=== PATIENT | female | born 1950 | race Caucasian/White ===

== ENCOUNTER 2016-10-16 20:57 | Emergency (ER) | payer MEDICARE, MEDICAID ==
[~2016-10-16] VITALS: Ht 157.5 cm; Wt 80.0 kg
[~2016-10-16 20:57] MED LIST: ANBE10LI MT; CARB100C PO; CLON1 PO; DOCU1CAP39 PO; FURO20 PO; HYDR-3129 PO; LISI20 PO; LORA-474 PO; NICODIS TD; PAXI10TA PO; POTA20IN3 PO; PROP1TAB66 PO; REME15TA PO; SENN-29 PO; ZOCO40TA PO
[2016-10-16 21:05] VITALS: BP 164/69; PULSE 69; RESP 16; TEMP 97.9; O2SAT 98
--- NOTE | 2016-10-16 21:44 | PD ---
HPI Chief Complaint: Pain: Acute or Chronic Time Seen by Provider: 21:00 Travel History International Travel<30 days: No Contact w/Intl Traveler<30days: No Traveled to known affect area: No History of Present Illness HPI The patient is a 66 year old female who presents to the [facility] emergency department with a history of reportedly having an exacerbation of her arthritic pain that became worse today. He reports having bilateral hip pain worse with walking, right shoulder pain, and low back pain. The patient denies any redness or swelling of her joints. She reports that she normally takes Aleve for the pain, however she did take a hydrocodone abruptly 1 hour prior to arrival. She reports that the pain has started to improve since arriving in the emergency department. She denies having any fevers or chills. She denies having any chest pain, chest pressure, or shortness of breath. The patient reports that she has had x-rays of her back in the past as well as her shoulder. She denies ever being told that she will require hip replacements or surgical repair. On review of systems, the patient denies any cough, congestion , neck pain, abdominal pain, vomiting, diarrhea, or neurologic symptoms. She does however report having urinary frequency that is more prominent over the last month. Denies any dysuria or urinary urgency. [facility] Past Medical History Narrative Medical The patient's past medical history is significant for congestive heart failure, hypertension, history of dementia, history of prior stroke with residual left- sided weakness history of TIA. Arthritis: Yes Anxiety: Yes Cardiovascular Problems: Yes Congestive Heart Failure: Yes COPD: Yes Dementia: Yes Genitourinary: No Hypertension: Yes Musculoskeletal: No Neurologic: No Psychiatric: No Reproductive: No Immunizations Current: Yes Tetanus Vaccination: Unknown Influenza Vaccination: No Past Surgical History Narrative Surgical The patient's past surgical history is significant for cardiac catheterization with stent placement in February 2015. Other Surgery: Yes (LUMPECTOMY) Social History Alcohol Use: No Tobacco Use: Yes Substance Use: No Allergies-Medications (Allergen,Severity, Reaction): Coded Allergies: Abilify (Verified Allergy, Severe, Chest Pain, 10/16/16) Latuda (Verified Allergy, Unknown, UNKNOWN, 10/16/16) Reported Meds & Prescriptions Reported Meds & Active Scripts Active Reported Senna (Sennosides) 8.6 Mg Tab 8.6 Mg PO HS Lorazepam 1 Mg Tab 1 Mg PO Q4H PRN Hydrocodone-Acetaminophen 10-325 mg Tab 1 Tab PO TID PRN Anbesol Dental (Benzocaine Dental) 10% Gel 1 Applic DENTAL PRN Mirtazapine 15 Mg Tab 15 Mg PO HS Clonazepam 1 Mg Tab 1 Mg PO TID Potassium Chloride ER (Potassium Chloride) 20 Meq Tab 20 Meq PO DAILY Propranolol (Propranolol HCl) 10 Mg Tab 10 Mg PO DAILY Paroxetine (Paroxetine HCl) 10 Mg Tab 10 Mg PO DAILY Lisinopril 20 Mg Tab 20 Mg PO DAILY Lasix (Furosemide) 40 Mg Tab 40 Mg PO DAILY Colace (Docusate Sodium) 100 Mg Cap 100 Mg PO DAILY Review of Systems Except as stated in HPI: all other systems reviewed are Neg General / Constitutional: No: Fever Eyes: No: Visual changes HENT: No: Headaches Cardiovascular: No: Chest Pain or Discomfort Respiratory: No: Shortness of Breath Gastrointestinal: No: Abdominal Pain Genitourinary: No: Dysuria Musculoskeletal: Positive: Myalgias, Arthralgias, Pain, No: Limited ROM, Weakness, Cramping, Edema Skin: No Rash Neurologic: No: Weakness Psychiatric: No: Depression Endocrine: No: Polydipsia Hematologic/Lymphatic: No: Easy Bruising Physical Exam Narrative General: The patient is well-developed well-nourished female in no acute distress. Head and Neck exam: Head is normocephalic atraumatic. Eyes: EOMI, pupils are equal round and reactive to light. Nose: Midline septum with pink mucous membranes Mouth: Dentition unremarkable. Moist mucus membranes. Posterior oropharynx is not erythematous. No tonsillar hypertrophy. Uvula midline. Airway patent. Neck: No palpable lymphadenopathy. No nuchal rigidity. No thyromegaly. Cardiovascular: Regular rate and rhythm without murmurs, gallops, or rubs. No pulse deficit to the extremities. Lungs: Clear to auscultation bilaterally. No wheezes, rhonchi, or rales. Abdomen: Soft, without tenderness to palpation in all 4 quadrants of the abdomen. No guarding, rebound, or rigidity. Normal bowel sounds are audible. No tenderness on palpation of McBurney's point. Extremities: No clubbing, cyanosis, or edema. 2+ pulses in all 4 extremities. No joint erythema or swelling. The calf tenderness on palpation. The patient has full range of motion of her extremities without deformity, step-off, or crepitus. Back: No spinous process tenderness to palpation. No costovertebral angle tenderness to palpation. Neurologic Exam: Grossly nonfocal. Skin Exam: No rash noted. Intact skin that is warm and dry. Data Data Last Documented VS Vital Signs Date Time Temp Pulse Resp B/P Pulse Ox O2 Delivery O2 Flow Rate FiO2 10/16/16 21:05 97.9 69 16 164/69 98 Orders Complete Blood Count With Diff (10/16/16 21:25) Basic Metabolic Panel (Bmp) (10/16/16 21:25) Creatine Kinase (Cpk) (10/16/16:25) Ckmb (Isoenzyme) Profile (10/16/16:) Troponin I (10/16/16:) Urinalysis - C+S If Indicated (10/16/16:) Chest, Single Ap (10/16/16:25) Pelvis, Ap Only (Routine) (10/16/16:25) Iv Access Insert/Monitor (10/16/16:25) Ecg Monitoring (10/16/16:25) Oximetry (10/16/16:25) Electrocardiogram (10/16/16 22:52) Labs Laboratory Tests Test 10/16/16 22:00 White Blood Count 10.7 TH/MM3 Red Blood Count 3.57 MIL/MM3 Hemoglobin 11.1 GM/DL Hematocrit 32.1 % Mean Corpuscular Volume 89.8 FL Mean Corpuscular Hemoglobin 31.1 PG Mean Corpuscular Hemoglobin 34.6 % Concent Red Cell Distribution Width 12.8 % Platelet Count 246 TH/MM3 Mean Platelet Volume 9.3 FL Neutrophils (%) (Auto) 53.6 % Lymphocytes (%) (Auto) 29.8 % Monocytes (%) (Auto) 10.0 % Eosinophils (%) (Auto) 5.6 % Basophils (%) (Auto) 1.0 % Neutrophils # (Auto) 5.7 TH/MM3 Lymphocytes # (Auto) 3.2 TH/MM3 Monocytes # (Auto) 1.1 TH/MM3 Eosinophils # (Auto) 0.6 TH/MM3 Basophils # (Auto) 0.1 TH/MM3 CBC Comment DIFF FINAL Differential Comment Urine Color YELLOW Urine Turbidity CLEAR Urine pH 5.0 Urine Specific [place] 1.009 Urine Protein NEG mg/dL Urine Glucose (UA) NEG mg/dL Urine Ketones NEG mg/dL Urine Occult Blood NEG Urine Nitrite NEG Urine Bilirubin NEG Urine Urobilinogen LESS THAN 2.0 MG/DL Urine Leukocyte Esterase SMALL Urine RBC 1 /hpf Urine WBC 3 /hpf Urine Squamous Epithelial 1 /hpf Cells Urine Bacteria OCC /hpf Urine Hyaline Casts 1 /lpf Urine Mucus FEW /lpf Microscopic Urinalysis Comment CULT NOT INDICATED Sodium Level 137 MEQ/L Potassium Level 5.1 MEQ/L Chloride Level 102 MEQ/L Carbon Dioxide Level 27.7 MEQ/L Anion Gap 7 MEQ/L Blood Urea Nitrogen 40 MG/DL Creatinine 1.57 MG/DL Estimat Glomerular Filtration 33 ML/MIN Rate Random Glucose 104 MG/DL Calcium Level 8.8 MG/DL Total Creatine Kinase 59 U/L Troponin I LESS THAN 0.02 NG/ML MDM Medical Decision Making Medical Screen Exam Complete: Yes Emergency Medical Condition: Yes Medical Record Reviewed: Yes Interpretation(s) Last Impressions Pelvis X-Ray 10/16/162124 Signed Impressions: Service Date/Time: Sunday, October 16, 2016 21:48 - CONCLUSION: 1. No acute findings. 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 Nate Núñez MD Chest X-Ray 10/16/162124 Signed Impressions: Service Date/Time: Sunday, October 16, 2016 21:51 - CONCLUSION: 1. No active disease. Calcifications in the left breast similar to prior studies. Nate Núñez MD Differential Diagnosis Exacerbation of arthritic pain, versus atypical presentation of acute coronary syndrome which right shoulder pain, versus rotator cuff injury, versus polymyositis Narrative Course During the course of the patients emergency department visit, the patients history, examination, and differential diagnosis were reviewed with the patient. The patient had IV access obtained and blood work sent for analysis. 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 EKG done on arrival shows a sinus bradycardia heart rate of 59, no acute ST segment elevation or depression, T waves inverted in V1. The patients laboratory studies were reviewed and remarkable for a white count of 10.7, hemoglobin 11.1, platelets 246 with 10 monocytes, CMP is remarkable for a BUN of 40, creatinine 1.57, CPK 59, troponin I less than 0.02, urinalysis shows no acute abdomen light. Radiology studies were reviewed and remarkable for a chest x-ray that shows no active disease, calcifications in the left breast that are similar to prior studies. Pelvic x-ray shows no acute findings, mild osteoarthritis of the hip and sacroiliac joints. The patient's results were discussed with her. The patient's daughter is at the bedside and I also discussed the results with her. The patient reports that she normally takes Aleve and did take a hydrocodone this evening an hour prior to arrival which began to become effective upon arriving in the emergency department. She reports that her pain is not relieved in her right shoulder. We did discuss further options regarding pain management including a pain management referral, versus orthopedic referral for evaluation for possible rotator cuff injury. I recommended that she follow-up with her primary care physician to discuss this further. Otherwise at this time, I would recommend that she continue on her current medication regimen. The patient is resting comfortably and feels better, is alert and in no distress. The patients results and examination findings were discussed with the patient. The repeat examination is unremarkable and benign. The history, exam, diagnostic testing, and current condition do not suggest any significant pathology to warrant further testing, continued ED treatment, admission, or surgical evaluation at this point. The vital signs have been stable. The patient does not have uncontrollable pain, intractable vomiting, or other significant symptoms. The patient's condition is stable and appropriate for discharge. The patient will pursue further outpatient evaluation with a primary care physician or other designated or consulting physician as indicated in the discharge instructions. The patient expressed understanding and was agreeable with this plan. Diagnosis Primary Impression: Arthralgia of left hip Additional Impressions: Arthralgia of right hip Right shoulder pain Qualified Code: M25.511 - Chronic right shoulder pain Referrals: Orthopedist 1 week Pain Management 1 week Primary Care Physician 2 days Patient Instructions: Arthritis (ED), General Instructions Additional Instructions: Discuss with your primary care physician possible referral to the orthopedic physician for right shoulder pain, versus pain management for generalized related arthritic pain and consideration of referral to physical therapy. Med/Other Pt SpecificInfo: No Change to Meds Disposition: 01 DISCHARGE HOME Condition: Stable Amie Crespo MD October 16, 2016 21:44
[2016-10-16 22:17] LABS: AUTOMATED NEUTROPHIL # 5.7 TH/MM3 (1.8-7.7); BACTERIA, URINE OCC /hpf; BASOPHIL # 0.1 TH/MM3 (0-0.2); BLOOD, URINE NEG (NEG); COMMENT (UR) CULT NOT INDICATED; CULTURE IF INDICATED CULT NOT INDICATED; EOSINOPHIL # 0.6 TH/MM3 (0-0.4); EOSINOPHIL % 5.6 % (0.0-4.0); GLUCOSE,URINE NEG (NEG); HEMATOCRIT 32.1 % (35.0-46.0); HEMO FLAGS DIFF FINAL; HYALINE CAST, URINE 1 /lpf (RARE); KETONE, URINE NEG (NEG); LYMPH % 29.8 % (9.0-44.0); LYMPHOCYTE # 3.2 TH/MM3 (1.0-4.8); MEAN CELL VOLUME 89.8 FL (80.0-100.0); MEAN CORPUSCULAR HEMOGLOBIN 31.1 PG (27.0-34.0); MEAN CORPUSCULAR HGB CONC 34.6 % (32.0-36.0); MUCUS URINE FEW /lpf (OCC); NEUT % 53.6 % (16.0-70.0); NITRITE,URINE NEG (NEG); PLATELET COUNT 246 TH/MM3 (150-450); RED BLOOD COUNT 3.57 MIL/MM3 (4.00-5.30); RED CELL DISTRIBUTION WIDTH 12.8 % (11.6-17.2); SQUAMOUS EPITHELIAL CELL URINE 1 /hpf (0-5); URINE COLOR YELLOW (YELLW/STRAW); WHITE BLOOD COUNT 10.7 TH/MM3 (4.0-11.0)
--- NOTE | 2016-10-16 22:32 | RADRPT ---
EXAM DATE/TIME: 10/16/2016 21:51 [facility] COMPARISON: CHEST SINGLE AP, December 09, 2015, 20:21. INDICATIONS : Pain all over, with no indication of trauma. MEDICAL HISTORY : Cardiovascular disease. SURGICAL HISTORY : None. ENCOUNTER: Initial ACUITY: 1 week PAIN SCORE: 6/10 LOCATION: Bilateral upper chest FINDINGS: A single view of the chest demonstrates the lungs to be symmetrically aerated without evidence of mas s, infiltrate or effusion. Multiple calcifications overlie lower left breast. The cardiomediastinal c ontours are unremarkable. Osseous structures are intact. CONCLUSION: 1. No active disease. Calcifications in the left breast similar to prior studies. Nate Núñez MD on October 16, 2016 at 22:29 Board Certified Radiologist. This report was verified electronically.
--- NOTE | 2016-10-16 22:34 | RADRPT ---
EXAM DATE/TIME: 10/16/2016 21:48 [facility] COMPARISON: No previous studies available for comparison. INDICATIONS : Pain all over, no trauma. MEDICAL HISTORY : Cardiovascular disease. SURGICAL HISTORY : None. ENCOUNTER: Initial ACUITY: 1 week PAIN SCORE: 7/10 LOCATION: Bilateral pelvis FINDINGS: A single frontal view of the pelvis demonstrates no evidence of fracture. The bony pelvic ring is in tact. Bony mineralization is normal. The soft tissues are intact. CONCLUSION: 1. No acute findings. 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 Nate Núñez MD on October 16, 2016 at 22:33 Board Certified Radiologist. This report was verified electronically.
[2016-10-16 22:44] LABS: ANION GAP 7 MEQ/L (5-15); BICARBONATE 27.7 MEQ/L (21.0-32.0); BLOOD UREA NITROGEN 40 MG/DL (7-18); CHLORIDE 102 MEQ/L (98-107); GLOMERULAR FILTRATION RATE 33 ML/MIN (>89); POTASSIUM 5.1 MEQ/L (3.5-5.1); SODIUM (NA) 137 MEQ/L (136-145)
[2016-10-16 22:45] LABS: CREATINE KINASE 59 U/L (26-192)
[2016-10-16] MEDS ORDERED: LORA1TAB12 PO (22:47)
[2016-10-16] MEDS ORDERED: PROP10TA6 PO (22:47)
[2016-10-16] MEDS ORDERED: COLA100C3 PO (22:47)
[2016-10-16] MEDS ORDERED: HYDR-3583 PO (22:47)
[2016-10-16] MEDS ORDERED: PARO10TA2 PO (22:47)
[2016-10-16] MEDS ORDERED: [UNRECOGNIZED DRUG - CODE] DENTAL (22:47)
[2016-10-16] MEDS ORDERED: CLON1TAB PO (22:47)
[2016-10-16] MEDS ORDERED: SENN8.6T5 PO (22:47)
[2016-10-16] MEDS ORDERED: FURO1TAB60 PO (22:47)
[2016-10-16] MEDS ORDERED: MIRTA15 PO (22:47)
[2016-10-16] MEDS ORDERED: LISI-515 PO (22:47)
[2016-10-16] MEDS ORDERED: POTA-163 PO (22:47)
[2016-10-16 23:23] VITALS: BP 114/75
[2016-10-17 08:15] VITALS: BP 170/72; PULSE 61; RESP 20; O2SAT 99
--- NOTE | 2016-10-17 15:13 | EKG ---
Date Performed: 10/16/2016 Time Performed: 23:13:39 PTAGE: 66 years EKG: SINUS BRADYCARDIA BORDERLINE ECG Compared to prior tracing no significant change PREVIOUS TRACING : 12/09/2015 20.55 DOCTOR: Michelle Dumont Interpretating Date/Time 10/17/2016 15:13:13
== END 2016-10-17 08:22 | disposition home or self-care (01) ==
LOC: NEPC 20:57
DX: M25.552 Pain in left hip (principal); M25.551 Pain in right hip; M25.511 Pain in right shoulder; G89.29 Other chronic pain; R00.1 Bradycardia, unspecified; M54.5 Low back pain; R35.0 Frequency of micturition; I10 Essential (primary) hypertension; F03.90 Unspecified dementia, unspecified severity, without behavioral disturbance, psychotic disturbance, mood disturbance, and anxiety; Z72.0 Tobacco use; Z87.39 Personal history of other diseases of the musculoskeletal system and connective tissue; Z86.79 Personal history of other diseases of the circulatory system; Z86.59 Personal history of other mental and behavioral disorders; Z87.09 Personal history of other diseases of the respiratory system
CPT/HCPCS: 71010; 72170; 80048; 81001; 82550; 84484; 85025; 93005; 99284

== ENCOUNTER 2017-10-16 19:04 | Emergency (ER) | payer MEDICARE, MEDICAID ==
[~2017-10-16] VITALS: Ht 157.5 cm; Wt 67.0 kg
[~2017-10-16 19:04] MED LIST changes: -ANBE10LI MT; -CARB100C PO; -CLON1 PO; +CLON1TAB PO; +COLA100C3 PO; -DOCU1CAP39 PO; +FURO1TAB60 PO; -FURO20 PO; -HYDR-3129 PO; +HYDR-3583 PO; +LISI-515 PO; -LISI20 PO; -LORA-474 PO; +LORA1TAB12 PO; +MIRTA15 PO; -NICODIS TD; +PARO10TA2 PO; -PAXI10TA PO; +POTA-163 PO; -POTA20IN3 PO; +PROP10TA6 PO; -PROP1TAB66 PO; -REME15TA PO; -SENN-29 PO; +SENN8.6T5 PO; -ZOCO40TA PO; +[UNRECOGNIZED DRUG - CODE] DENTAL
[2017-10-16 19:27] VITALS: BP 130/60; PULSE 86; RESP 16; TEMP 99.3; O2SAT 100
--- NOTE | 2017-10-16 20:20 | PD ---
HPI Chief Complaint: GI Complaint Time Seen by Provider: 20:20 Travel History International Travel<30 days: No Contact w/Intl Traveler<30days: No Traveled to known affect area: No History of Present Illness HPI Patient complaint of diarrhea for the past 4 to 5 weeks, patient lives at [facility] which according to the patient is an [facility]. Patient is not having any acute pain, does not have any fever/rash/chest pain/back pain/abdominal pain /nausea/vomiting with the symptoms. Patient denies any alleviating or aggravating factors. Patient states that she has a primary care physician Dr. Preciado, but that she has not brought this complaint to her attention yet. Patient denies any active nausea or vomiting, as well as any active crampy abdominal pain with his diarrhea. Patient states that she just feels the urge them before she can even be able to go to the bathroom sometimes she has accidents. Otherwise patient is in her normal state of health. Past medical history significant for dementia, congestive heart failure, hypertension, COPD, arthritis, anxiety, with positive tobacco use [facility] Past Medical History Arthritis: Yes Anxiety: Yes Cardiovascular Problems: Yes Congestive Heart Failure: Yes COPD: Yes Dementia: Yes Diminished Hearing: No Genitourinary: No Hypertension: Yes Musculoskeletal: No Neurologic: No Psychiatric: No Reproductive: No Immunizations Current: Yes Tetanus Vaccination: Unknown ?: Not LMP: menapause Past Surgical History Other Surgery: Yes (LUMPECTOMY) Social History Alcohol Use: Yes (occasionally) Tobacco Use: Yes Substance Use: No Allergies-Medications (Allergen,Severity, Reaction): Coded Allergies: aripiprazole (Unverified Allergy, Severe, Chest Pain, 10/16/17) lurasidone (Unverified Allergy, Unknown, UNKNOWN, 10/16/17) Reported Meds & Prescriptions Reported Meds & Active Scripts Active Reported Senna (Sennosides) 8.6 Mg Tab 8.6 Mg PO HS Lorazepam 1 Mg Tab 1 Mg PO Q4H PRN Hydrocodone-Acetaminophen 10-325 mg Tab 1 Tab PO TID PRN Anbesol Dental (Benzocaine Dental) 10% Gel 1 Applic DENTAL PRN Mirtazapine 15 Mg Tab 15 Mg PO HS Clonazepam 1 Mg Tab 1 Mg PO TID Potassium Chloride ER (Potassium Chloride) 20 Meq Tab 20 Meq PO DAILY Propranolol (Propranolol HCl) 10 Mg Tab 10 Mg PO DAILY Paroxetine (Paroxetine HCl) 10 Mg Tab 10 Mg PO DAILY Lisinopril 20 Mg Tab 20 Mg PO DAILY Lasix (Furosemide) 40 Mg Tab 40 Mg PO DAILY Colace (Docusate Sodium) 100 Mg Cap 100 Mg PO DAILY Review of Systems General / Constitutional: No: Fever Eyes: No: Visual changes HENT: No: Headaches Cardiovascular: No: Chest Pain or Discomfort Respiratory: No: Shortness of Breath Gastrointestinal: Positive: Diarrhea Genitourinary: No: Dysuria Musculoskeletal: No: Pain Skin: No Rash Neurologic: No: Weakness Psychiatric: No: Depression Endocrine: No: Polydipsia Hematologic/Lymphatic: No: Easy Bruising Physical Exam Narrative GENERAL: SKIN: Warm and dry. HEAD: Atraumatic. Normocephalic. EYES: Pupils equal and round. No scleral icterus. No injection or drainage. ENT: No nasal bleeding or discharge. Mucous membranes pink and moist. NECK: Trachea midline. No JVD. CARDIOVASCULAR: Regular rate and rhythm. RESPIRATORY: No accessory muscle use. Clear to auscultation. Breath sounds equal bilaterally. GASTROINTESTINAL: Abdomen soft, non-tender, nondistended. MUSCULOSKELETAL: Extremities without clubbing, cyanosis, or edema. No obvious deformities. NEUROLOGICAL: Awake and alert. No obvious cranial nerve deficits. Motor grossly within normal limits. Five out of 5 muscle strength in the arms and legs. Normal speech. PSYCHIATRIC: Appropriate mood and affect; insight and judgment normal. Data Data Last Documented VS Vital Signs Date Time Temp Pulse Resp B/P (MAP) Pulse Ox O2 Delivery O2 Flow Rate FiO2 10/16/17 19:27 99.3 86 16 130/60 (83) 100 Orders Orders Complete Blood Count With Diff (10/16/17 20:20) Comprehensive Metabolic Panel (10/16/17 20:20) Lipase (10/16/17 20:20) Urinalysis - C+S If Indicated (10/16/17 20:20) Enteric Path (Stool) (10/16/17 20:20) C Diff Toxin Pcr (10/16/17 20:20) Ct Abd/Pel W/O Iv Contrast (10/16/17 20:20) Iv Access Insert/Monitor (10/16/17 20:20) Stool Ova And Parasite Screen (10/16/17 20:20) Stool Wbc (Leukocytes) (10/16/17 20:20) Ed Discharge Order (10/16/17 21:10) Urine Culture (10/16/17 20:39) Labs Laboratory Tests Test 10/16/17 20:39 Urine Color YELLOW Urine Turbidity HAZY Urine pH 5.5 Urine Specific [place] 1.012 Urine Protein TRACE mg/dL Urine Glucose (UA) NEG mg/dL Urine Ketones NEG mg/dL Urine Occult Blood NEG Urine Nitrite NEG Urine Bilirubin NEG Urine Urobilinogen LESS THAN 2.0 MG/DL Urine Leukocyte Esterase LARGE Urine WBC 8 /hpf Urine Squamous Epithelial Cells 8 /hpf Urine Bacteria MOD /hpf Urine Hyaline Casts 6 /lpf Microscopic Urinalysis Comment CULTURE INDICATED MDM Medical Decision Making Medical Screen Exam Complete: Yes Emergency Medical Condition: Yes Medical Record Reviewed: Yes Differential Diagnosis Colitis versus diverticulitis versus electrolyte abnormalities versus atypical pancreatitis Narrative Course The patient tolerated p.o. challenge, is ambulatory is in no acute distress..... Despite the patient being given an opportunity of approximately 2 hours to produce some stool, the patient has been unable to.. However despite this I advised the patient that I could go ahead and obtain stool for testing as well as blood work, however at that time the patient stated that she would not have a ride back home and so she decided to return to her home and will follow up with her primary care physician as an outpatient....The patient is agreeable to outpatient workup, and does not want to wait the emergency department to get her results or even GET HER specimens collected Diagnosis Primary Impression: Chronic diarrhea Patient Instructions: Chronic Diarrhea (ED), General Instructions Additional Instructions: As previously discussed it is recommended that you follow-up with your primary care physician to workup this chronic diarrhea that has been going on for the past for 5 weeks as YOU stated. Disposition: 01 DISCHARGE HOME Condition: Christian Brooks MD October 16, 2017 20:20
[2017-10-16 21:22] LABS: BACTERIA, URINE MOD /hpf; BILIRUBIN, URINE NEG (NEG); BLOOD, URINE NEG (NEG); GLUCOSE,URINE NEG (NEG); HYALINE CAST, URINE 6 /lpf (RARE); KETONE, URINE NEG (NEG); NITRITE,URINE NEG (NEG); PH, URINE 5.5 (5.0-8.5); SQUAMOUS EPITHELIAL CELL URINE 8 /hpf (0-5); URINE COLOR YELLOW (YELLW/STRAW); URINE LEUKOCYTE ESTERASE LARGE (NEG)
--- NOTE | 2017-10-16 22:02 | RADRPT ---
EXAM DATE: 10/16/2017 9:36 PM EDT AGE/SEX: 67 years / Female INDICATIONS: Abdomen pain. CLINICAL DATA: This is the patient's initial encounter. Patient reports that signs and symptoms have been present for 1 day and indicates a pain score of 5/10. MEDICAL/SURGICAL HISTORY: Hypertension. None. RADIATION DOSE: 6.65 CTDI (mGy) COMPARISON: No prior [facility] exams available for comparison. TECHNIQUE: Multiple contiguous axial images were obtained through the abdomen. Images were obtained using multiple row detector helical technique. Using dose reduction techniques, radiation dose was ke pt as low as reasonably achievable to obtain optimal diagnostic quality images. FINDINGS: Lower Chest: The visualized lower lungs are clear. There are extensive calcifications seen in the lef t breast. Liver: The liver has a homogeneous density without space-occupying lesion. There is no dilation of th e biliary tree. The gallbladder is distended. There is a tiny calcified stone seen at the gallbladder fundus. Spleen: Homogeneous density without enlargement. Pancreas: Unremarkable without mass or calcification. Kidneys: Normal in size and shape. No evidence of mass or hydronephrosis. Adrenal Glands: Unremarkable. Aorta: Atherosclerotic calcifications are seen throughout the arterial system. No aneurysm is seen. The patient has a fem-fem bypass graft. Bowel/Mesentery: The bowel loops are grossly unremarkable. The cecum and sigmoid colon have a normal configuration. Abdominal Wall: Intact. Retroperitoneum: No evidence of adenopathy in the retrocrural, para-aortic, or deep pelvic regions. Bladder: Contours are smooth. Reproductive Organs: No abnormal masses or calcifications seen. Inguinal: The inguinal region is unremarkable without evidence of adenopathy. Bony Structures: There is degenerative change in the lower lumbar spine. CONCLUSION: 1. Distended gallbladder with a tiny stone at gallbladder fundus. 2. Atherosclerotic calcifications throughout the arterial system with a fem-fem bypass graft. 3. Extensive coarse calcifications throughout the left breast. Electronically signed by: Stephen Vasquez MD 10/16/2017 10:00 PM EDT
== END 2017-10-16 21:37 | disposition home or self-care (01) ==
LOC: NEPD 19:04
DX: K52.9 Noninfective gastroenteritis and colitis, unspecified (principal); I11.0 Hypertensive heart disease with heart failure; I50.9 Heart failure, unspecified; Z72.0 Tobacco use; Z79.899 Other long term (current) drug therapy
CPT/HCPCS: 74176; 81001; 87077; 87086; 87186; 99284

== ENCOUNTER 2018-01-27 09:18 | Inpatient (IN) ==
[2018-01-27] MEDS: Propofol 1000 mg/100 ml Inj 1,000 MG/100 ML BOTTLE IV.CONT PRN ×2 (09:25→22:51)
[2018-01-27] MEDS ORDERED: Propofol Inj 500 MG/50 ML Vial ONE (09:28)
--- NOTE | 2018-01-27 09:32 | ED ---
HPI General Chief complaint: Altered Mental Status Stated complaint: Resp Time Seen by Provider: 01/27/18 09:24 History of Present Illness HPI narrative: Is a 67-year-old female presents emergency department from shelter with respiratory distress and impending respiratory failure. Patient in extremis on arrival, history is extremely limited. The patient according to records has a history of dementia CHF hypertensive emergency. EMS arrived states that the patient's initial set on scene was 70, apparently seen by shelter staff last night just fine. Assisting ventilations they were able to get her saturation up to 90s. The patient opens eyes when I pinch her arm, she is so short of breath she is unable to speak to me. I explained to her on arrival that I was going to intubate her and she appeared to nod. Related Data Home Medications Medication Instructions Recorded Confirmed cholestyramine (with sugar) 4 g PO BID 01/27/18 01/27/18 clonazepam [Klonopin] 1 mg PO TID 01/27/18 01/27/18 clopidogrel 75 mg PO DAILY 01/27/18 01/27/18 fentanyl 1 patch TRANSDERMAL Q72H 01/27/18 01/27/18 lisinopril 20 mg PO DAILY 01/27/18 01/27/18 loperamide 2 mg PO BID 01/27/18 01/27/18 melatonin 3 mg PO HS PRN 01/27/18 01/27/18 meloxicam 15 mg PO DAILY 01/27/18 01/27/18 omeprazole 20 mg PO DAILY 01/27/18 01/27/18 paroxetine HCl 30 mg PO DAILY 01/27/18 01/27/18 propranolol 10 mg PO DAILY 01/27/18 01/27/18 Allergies Allergy/AdvReac Type Severity Reaction Status Date / Time aripiprazole Allergy Severe Chest Pain Unverified 10/16/17 19:27 lurasidone Allergy Unknown UNKNOWN Unverified 10/16/17 19:27 Review of Systems ROS Unobtainable ROS Unobtainable: unobtainable due to endotracheal tube PMFSH Social History Social History Substance History: Unable to Obtain Smoking Status: Unknown if ever smoked Tobacco Type: Cigarettes How Often Do You Have a Drink Containing Alcohol: Unable to Obtain Recent Travel in [facility] within the Last 8 Weeks: No Recent Out of Country Travel within the Last 8 Weeks: No Exam Narrative Exam Narrative: GENERAL: [-] SKIN: Focused skin assessment warm/dry. HEAD: Atraumatic. Normocephalic. EYES: Pupils equal and round. No scleral icterus. No injection or drainage. ENT: No nasal bleeding or discharge. Mucous membranes pink and moist. NECK: Trachea midline. No JVD. CARDIOVASCULAR: Regular rate and rhythm. No murmur appreciated. RESPIRATORY: No accessory muscle use. Clear to auscultation. Breath sounds equal bilaterally. GASTROINTESTINAL: Abdomen soft, non-tender, nondistended. Hepatic and splenic margins not palpable. MUSCULOSKELETAL: No obvious deformities. No clubbing. No cyanosis. No edema. NEUROLOGICAL: Awake and alert. No obvious cranial nerve deficits. Motor grossly within normal limits. Normal speech. PSYCHIATRIC: Appropriate mood and affect; insight and judgment normal. Procedures Intubation Time Out Performed: Yes Sedative: etomidate Mg Given: 20 Paralytic: succinylcholine Mg Given: 100 Laryngoscope: Lily ET Tube Size: 8 ET Tube Uncuffed: No Tube Placement Confirmation: visualized tube passing through cords, equal breath sounds bilaterally, no breath sounds over epigastrium and confirmation by capnometry Patient Tolerated Procedure: well Intubation Complications: none Course Initial Documented Vital Signs Temperature 101.8 F H 01/27/18 09:22 Pulse Rate 103 H 01/27/18 09:22 Respiratory Rate 35 H 01/27/18 09:22 Blood Pressure 157/78 H 01/27/18 09:22 Pulse Oximetry 98 01/27/18 09:22 Last Documented Vital Signs Temperature 98.0 F 01/30/18 20:00 Pulse Rate 95 H 01/30/18 20:00 Respiratory Rate 18 01/30/18 20:00 Blood Pressure 157/85 H 01/30/18 20:00 Pulse Oximetry 98 01/30/18 20:00 Critical Care Time Critical Care Time: Yes Total Critical Care Time: 35 Attestation: Patient critically ill requiring 35 minutes of critical care time. Time for billable procedures not included. Risk to patient is , disability and organ failure. Medical Decision Making MDM Narrative Medical decision making narrative: Patient roomed in the ER pending respiratory arrest was intubated on arrival. CXR shows pulmonary edema. Patient appears euvolemic. ABG, VS stabilizing with mechanical ventilation. Fluid resuscitation held until labs can further delineate hypovolemic vs euvolemic. Patient given 1L NS with lactic elelvated. However, i think aggressive resuscitation is contraindicated. Patient with pulmonary edema, and has stabilized nicely. Lactic acidosis could be from stress reaction and not septic shock. Fluid resuscitation reserved to 1L ns in ED. Antibiotics started. Also has nitrate positive urine. Discussed with critical care for admission. Medical Screen Exam Complete: Yes Emergency Medical Condition: Yes Differential Diagnosis Differential Diagnosis: Hypercapnea, hypoxia, pulmonary edema, sepsis, pneumonia , pending respiratory arrest. Lab Data Result diagrams: 01/30/18 11:30 01/30/18 11:30 Lab Results 01/27/18 01/27/18 01/27/18 Range/Units 09:40 09:40 09:40 WBC 11.6 H (4.0-11.0) th/mm3 RBC 3.71 L (4.00-5.30) mil/mm3 Hgb 11.6 (11.6-15.3) gm/dL Hct 36.1 (35.0-46.0) % MCV 97.3 (80.0-100.0) fL MCH 31.2 (27.0-34.0) pg MCHC 32.0 (32.0-36.0) % RDW 13.5 (11.6-17.2) % Plt Count 177 (150-450) th/mm3 MPV 9.9 (7.0-11.0) fL Prelim Diff (Auto) Neut % (Auto) 55.1 (16.0-70.0) % Lymph % (Auto) 36.4 (9.0-44.0) % [place] % (Auto) 5.4 (0.0-8.0) % Eos % (Auto) 2.4 (0.0-4.0) % Baso % (Auto) 0.7 (0.0-2.0) % Neut # (Auto) 6.4 (1.8-7.7) th/mm3 Lymph # (Auto) 4.2 (1.0-4.8) th/mm3 [place] # (Auto) 0.6 (0.0-0.9) th/mm3 Eos # (Auto) 0.3 (0.0-0.4) th/mm3 Baso # (Auto) 0.1 (0.0-0.2) th/mm3 WBC Differential . Seg Neuts % (Manual) (16-70) % Band Neuts % (Manual) (0-6) % Lymphocytes % (Manual) (9-44) % Monocytes % (Manual) (0-8) % Abs Neuts (Manual) (1.8-7.7) th/mm3 Differential Comment Auto diff final Platelet Estimate (Normal) Platelet Morphology (Normal) Ovalocytes (None) Jordon Cells (None) PT (9.8-11.6) sec INR Ratio APTT (24.3-30.1) sec Puncture Site Patient Temperature O2 Saturation (90-100) % ABG pH (7.380-7.420) ABG pCO2 (38-42) mmHg ABG pO2 (61-120) mmHg ABG HCO3 (22-26) mmol/L ABG O2 Content (12.0-20.0) Vol % ABG Base Excess (-2-2) mmol/L ABG Methemoglobin (0-2) % [place] Test Hemoglobin (12.0-16.0) G/DL Carboxyhemoglobin (0-4) % O2 Delivery Device Vent Setting Inspired O2 % Critical Value Sodium 140 (136-145) meq/L Potassium 5.3 H (3.5-5.1) meq/L Chloride 109 H (98-107) meq/L Carbon Dioxide 17.5 L (21.0-32.0) meq/L Anion Gap 14 (5-15) meq/L BUN 15 (7-18) mg/dL Creatinine 1.83 H (0.50-1.00) mg/dL Estimated GFR 27 L (>89) mL/min POC Glucose (68-110) mg/dl Random Glucose 256 H (74-106) mg/dL Lactic Acid (0.4-2.0) mmol/L Calcium 8.3 L (8.5-10.1) mg/dL Phosphorus (2.5-4.9) mg/dL Magnesium (1.5-2.5) mg/dL Total Bilirubin 0.4 (0.2-1.0) mg/dL AST 52 H (15-37) U/L ALT 18 (10-53) U/L Alkaline Phosphatase 155 H (45-117) U/L Troponin I Less than 0.02 L (0.02-0.05) ng/mL Total Protein 7.3 (6.4-8.2) g/dL Albumin 3.6 (3.4-5.0) g/dL Urine Color Yellow (Yellw/Straw) Urine Clarity Clear (Clear) Urine pH 6.0 (5.0-8.5) Ur Specific [place] 1.010 (1.002-1.035) Urine Protein 30 H (Neg-Trace) mg/dL Urine Glucose (UA) Negative (Negative) mg/dL Urine Ketones Negative (Negative) mg/dL Urine Occult Blood Small H (Negative) Urine Nitrate Positive H (Negative) Urine Bilirubin Negative (Negative) Urine Urobilinogen Less than 2 (Less than 2) mg/dL Ur Leukocyte Esterase Negative (Negative) Urine RBC 7 H (0-3) /hpf Urine WBC 5 (0-5) /hpf Ur Squamous Epith Cells <1 (0-5) /hpf Urine Bacteria Many H (None) /hpf Urine Mucus Few H (Occasional) /lpf Ur Microscopic Review Not Reportable Nasal Screen MRSA (PCR) (Negative) Random Vancomycin Comment 01/27/18 01/27/18 01/27/18 Range/Units 09:55 10:05 10:52 WBC (4.0-11.0) th/mm3 RBC (4.00-5.30) mil/mm3 Hgb (11.6-15.3) gm/dL Hct (35.0-46.0) % MCV (80.0-100.0) fL MCH (27.0-34.0) pg MCHC (32.0-36.0) % RDW (11.6-17.2) % Plt Count (150-450) th/mm3 MPV (7.0-11.0) fL Prelim Diff (Auto) Neut % (Auto) (16.0-70.0) % Lymph % (Auto) (9.0-44.0) % [place] % (Auto) (0.0-8.0) % Eos % (Auto) (0.0-4.0) % Baso % (Auto) (0.0-2.0) % Neut # (Auto) (1.8-7.7) th/mm3 Lymph # (Auto) (1.0-4.8) th/mm3 [place] # (Auto) (0.0-0.9) th/mm3 Eos # (Auto) (0.0-0.4) th/mm3 Baso # (Auto) (0.0-0.2) th/mm3 WBC Differential Seg Neuts % (Manual) (16-70) % Band Neuts % (Manual) (0-6) % Lymphocytes % (Manual) (9-44) % Monocytes % (Manual) (0-8) % Abs Neuts (Manual) (1.8-7.7) th/mm3 Differential Comment Platelet Estimate (Normal) Platelet Morphology (Normal) Ovalocytes (None) Jordon Cells (None) PT (9.8-11.6) sec INR Ratio APTT (24.3-30.1) sec Puncture Site Left radial Right radial Patient Temperature 98.6 98.6 O2 Saturation 97 93 (90-100) % ABG pH 7.12 L* 7.35 L (7.380-7.420) ABG pCO2 57 H* 35 L (38-42) mmHg ABG pO2 243 H 80 (61-120) mmHg ABG HCO3 18 L 19 L (22-26) mmol/L ABG O2 Content 15.7 13.9 (12.0-20.0) Vol % ABG Base Excess -10.0 L -5.8 L (-2-2) mmol/L ABG Methemoglobin 1.4 0.9 (0-2) % [place] Test Present Present Hemoglobin 11.2 L 10.6 L (12.0-16.0) G/DL Carboxyhemoglobin 0.2 1.0 (0-4) % O2 Delivery Device Vent Vent Vent Setting Aprv//500/5/75% Prvc/18/500/8/50 Inspired O2 75 50 % Critical Value Yes No Sodium (136-145) meq/L Potassium (3.5-5.1) meq/L Chloride (98-107) meq/L Carbon Dioxide (21.0-32.0) meq/L Anion Gap (5-15) meq/L BUN (7-18) mg/dL Creatinine (0.50-1.00) mg/dL Estimated GFR (>89) mL/min POC Glucose (68-110) mg/dl Random Glucose (74-106) mg/dL Lactic Acid 4.8 H* (0.4-2.0) mmol/L Calcium (8.5-10.1) mg/dL Phosphorus (2.5-4.9) mg/dL Magnesium (1.5-2.5) mg/dL Total Bilirubin (0.2-1.0) mg/dL AST (15-37) U/L ALT (10-53) U/L Alkaline Phosphatase (45-117) U/L Troponin I (0.02-0.05) ng/mL Total Protein (6.4-8.2) g/dL Albumin (3.4-5.0) g/dL Urine Color (Yellw/Straw) Urine Clarity (Clear) Urine pH (5.0-8.5) Ur Specific [place] (1.002-1.035) Urine Protein (Neg-Trace) mg/dL Urine Glucose (UA) (Negative) mg/dL Urine Ketones (Negative) mg/dL Urine Occult Blood (Negative) Urine Nitrate (Negative) Urine Bilirubin (Negative) Urine Urobilinogen (Less than 2) mg/dL Ur Leukocyte Esterase (Negative) Urine RBC (0-3) /hpf Urine WBC (0-5) /hpf Ur Squamous Epith Cells (0-5) /hpf Urine Bacteria (None) /hpf Urine Mucus (Occasional) /lpf Ur Microscopic Review Nasal Screen MRSA (PCR) (Negative) Random Vancomycin Comment 01/27/18 01/27/18 01/27/18 Range/Units 11:00 15:30 16:39 WBC (4.0-11.0) th/mm3 RBC (4.00-5.30) mil/mm3 Hgb (11.6-15.3) gm/dL Hct (35.0-46.0) % MCV (80.0-100.0) fL MCH (27.0-34.0) pg MCHC (32.0-36.0) % RDW (11.6-17.2) % Plt Count (150-450) th/mm3 MPV (7.0-11.0) fL Prelim Diff (Auto) Neut % (Auto) (16.0-70.0) % Lymph % (Auto) (9.0-44.0) % [place] % (Auto) (0.0-8.0) % Eos % (Auto) (0.0-4.0) % Baso % (Auto) (0.0-2.0) % Neut # (Auto) (1.8-7.7) th/mm3 Lymph # (Auto) (1.0-4.8) th/mm3 [place] # (Auto) (0.0-0.9) th/mm3 Eos # (Auto) (0.0-0.4) th/mm3 Baso # (Auto) (0.0-0.2) th/mm3 WBC Differential Seg Neuts % (Manual) (16-70) % Band Neuts % (Manual) (0-6) % Lymphocytes % (Manual) (9-44) % Monocytes % (Manual) (0-8) % Abs Neuts (Manual) (1.8-7.7) th/mm3 Differential Comment Platelet Estimate (Normal) Platelet Morphology (Normal) Ovalocytes (None) Holt Cells (None) PT 11.0 (9.8-11.6) sec INR 1.1 Ratio APTT 19.9 L (24.3-30.1) sec Puncture Site Patient Temperature O2 Saturation (90-100) % ABG pH (7.380-7.420) ABG pCO2 (38-42) mmHg ABG pO2 (61-120) mmHg ABG HCO3 (22-26) mmol/L ABG O2 Content (12.0-20.0) Vol % ABG Base Excess (-2-2) mmol/L ABG Methemoglobin (0-2) % [place] Test Hemoglobin (12.0-16.0) G/DL Carboxyhemoglobin (0-4) % O2 Delivery Device Vent Setting Inspired O2 % Critical Value Sodium (136-145) meq/L Potassium (3.5-5.1) meq/L Chloride (98-107) meq/L Carbon Dioxide (21.0-32.0) meq/L Anion Gap (5-15) meq/L BUN (7-18) mg/dL Creatinine (0.50-1.00) mg/dL Estimated GFR (>89) mL/min POC Glucose (68-110) mg/dl Random Glucose (74-106) mg/dL Lactic Acid 1.3 (0.4-2.0) mmol/L Calcium (8.5-10.1) mg/dL Phosphorus (2.5-4.9) mg/dL Magnesium (1.5-2.5) mg/dL Total Bilirubin (0.2-1.0) mg/dL AST (15-37) U/L ALT (10-53) U/L Alkaline Phosphatase (45-117) U/L Troponin I (0.02-0.05) ng/mL Total Protein (6.4-8.2) g/dL Albumin (3.4-5.0) g/dL Urine Color (Yellw/Straw) Urine Clarity (Clear) Urine pH (5.0-8.5) Ur Specific [place] (1.002-1.035) Urine Protein (Neg-Trace) mg/dL Urine Glucose (UA) (Negative) mg/dL Urine Ketones (Negative) mg/dL Urine Occult Blood (Negative) Urine Nitrate (Negative) Urine Bilirubin (Negative) Urine Urobilinogen (Less than 2) mg/dL Ur Leukocyte Esterase (Negative) Urine RBC (0-3) /hpf Urine WBC (0-5) /hpf Ur Squamous Epith Cells (0-5) /hpf Urine Bacteria (None) /hpf Urine Mucus (Occasional) /lpf Ur Microscopic Review Nasal Screen MRSA (PCR) Not detected (Negative) Random Vancomycin Comment 01/27/18 01/27/18 01/28/18 Range/Units 17:55 23:30 03:37 WBC 10.8 (4.0-11.0) th/mm3 RBC 3.51 L (4.00-5.30) mil/mm3 Hgb 10.9 L (11.6-15.3) gm/dL Hct 32.9 L (35.0-46.0) % MCV 93.9 (80.0-100.0) fL MCH 31.1 (27.0-34.0) pg MCHC 33.1 (32.0-36.0) % RDW 13.2 (11.6-17.2) % Plt Count 134 L (150-450) th/mm3 MPV 9.7 (7.0-11.0) fL Prelim Diff (Auto) Neut % (Auto) 92.9 H (16.0-70.0) % Lymph % (Auto) 5.2 L (9.0-44.0) % [place] % (Auto) 1.8 (0.0-8.0) % Eos % (Auto) 0.0 (0.0-4.0) % Baso % (Auto) 0.1 (0.0-2.0) % Neut # (Auto) 10.0 H (1.8-7.7) th/mm3 Lymph # (Auto) 0.6 L (1.0-4.8) th/mm3 [place] # (Auto) 0.2 (0.0-0.9) th/mm3 Eos # (Auto) 0.0 (0.0-0.4) th/mm3 Baso # (Auto) 0.0 (0.0-0.2) th/mm3 WBC Differential . Seg Neuts % (Manual) (16-70) % Band Neuts % (Manual) (0-6) % Lymphocytes % (Manual) (9-44) % Monocytes % (Manual) (0-8) % Abs Neuts (Manual) (1.8-7.7) th/mm3 Differential Comment Auto diff final Platelet Estimate (Normal) Platelet Morphology (Normal) Ovalocytes (None) Jordon Cells (None) PT (9.8-11.6) sec INR Ratio APTT (24.3-30.1) sec Puncture Site Patient Temperature O2 Saturation (90-100) % ABG pH (7.380-7.420) ABG pCO2 (38-42) mmHg ABG pO2 (61-120) mmHg ABG HCO3 (22-26) mmol/L ABG O2 Content (12.0-20.0) Vol % ABG Base Excess (-2-2) mmol/L ABG Methemoglobin (0-2) % [place] Test Hemoglobin (12.0-16.0) G/DL Carboxyhemoglobin (0-4) % O2 Delivery Device Vent Setting Inspired O2 % Critical Value Sodium (136-145) meq/L Potassium (3.5-5.1) meq/L Chloride (98-107) meq/L Carbon Dioxide (21.0-32.0) meq/L Anion Gap (5-15) meq/L BUN (7-18) mg/dL Creatinine (0.50-1.00) mg/dL Estimated GFR (>89) mL/min POC Glucose 108 154 H (68-110) mg/dl Random Glucose (74-106) mg/dL Lactic Acid (0.4-2.0) mmol/L Calcium (8.5-10.1) mg/dL Phosphorus (2.5-4.9) mg/dL Magnesium (1.5-2.5) mg/dL Total Bilirubin (0.2-1.0) mg/dL AST (15-37) U/L ALT (10-53) U/L Alkaline Phosphatase (45-117) U/L Troponin I (0.02-0.05) ng/mL Total Protein (6.4-8.2) g/dL Albumin (3.4-5.0) g/dL Urine Color (Yellw/Straw) Urine Clarity (Clear) Urine pH (5.0-8.5) Ur Specific [place] (1.002-1.035) Urine Protein (Neg-Trace) mg/dL Urine Glucose (UA) (Negative) mg/dL Urine Ketones (Negative) mg/dL Urine Occult Blood (Negative) Urine Nitrate (Negative) Urine Bilirubin (Negative) Urine Urobilinogen (Less than 2) mg/dL Ur Leukocyte Esterase (Negative) Urine RBC (0-3) /hpf Urine WBC (0-5) /hpf Ur Squamous Epith Cells (0-5) /hpf Urine Bacteria (None) /hpf Urine Mucus (Occasional) /lpf Ur Microscopic Review Nasal Screen MRSA (PCR) (Negative) Random Vancomycin Comment 01/28/18 01/28/18 01/28/18 Range/Units 03:37 09:17 12:43 WBC (4.0-11.0) th/mm3 RBC (4.00-5.30) mil/mm3 Hgb (11.6-15.3) gm/dL Hct (35.0-46.0) % MCV (80.0-100.0) fL MCH (27.0-34.0) pg MCHC (32.0-36.0) % RDW (11.6-17.2) % Plt Count (150-450) th/mm3 MPV (7.0-11.0) fL Prelim Diff (Auto) Neut % (Auto) (16.0-70.0) % Lymph % (Auto) (9.0-44.0) % [place] % (Auto) (0.0-8.0) % Eos % (Auto) (0.0-4.0) % Baso % (Auto) (0.0-2.0) % Neut # (Auto) (1.8-7.7) th/mm3 Lymph # (Auto) (1.0-4.8) th/mm3 [place] # (Auto) (0.0-0.9) th/mm3 Eos # (Auto) (0.0-0.4) th/mm3 Baso # (Auto) (0.0-0.2) th/mm3 WBC Differential Seg Neuts % (Manual) (16-70) % Band Neuts % (Manual) (0-6) % Lymphocytes % (Manual) (9-44) % Monocytes % (Manual) (0-8) % Abs Neuts (Manual) (1.8-7.7) th/mm3 Differential Comment Platelet Estimate (Normal) Platelet Morphology (Normal) Ovalocytes (None) Jordon Cells (None) PT (9.8-11.6) sec INR Ratio APTT (24.3-30.1) sec Puncture Site Right radial Patient Temperature 98.6 O2 Saturation 97 (90-100) % ABG pH 7.43 H (7.380-7.420) ABG pCO2 23 L* (38-42) mmHg ABG pO2 185 H (61-120) mmHg ABG HCO3 15 L* (22-26) mmol/L ABG O2 Content 15.2 (12.0-20.0) Vol % ABG Base Excess -8.8 L (-2-2) mmol/L ABG Methemoglobin 1.8 (0-2) % [place] Test Present Hemoglobin 10.9 L (12.0-16.0) G/DL Carboxyhemoglobin 0.5 (0-4) % O2 Delivery Device Ventilator Vent Setting See comments Inspired O2 40 % Critical Value Yes Sodium 142 (136-145) meq/L Potassium 3.3 L D (3.5-5.1) meq/L Chloride 109 H (98-107) meq/L Carbon Dioxide 18.8 L (21.0-32.0) meq/L Anion Gap 14 (5-15) meq/L BUN 17 (7-18) mg/dL Creatinine 1.45 H (0.50-1.00) mg/dL Estimated GFR 36 L (>89) mL/min POC Glucose 175 H (68-110) mg/dl Random Glucose 191 H (74-106) mg/dL Lactic Acid (0.4-2.0) mmol/L Calcium 7.9 L (8.5-10.1) mg/dL Phosphorus 2.9 (2.5-4.9) mg/dL Magnesium 1.7 (1.5-2.5) mg/dL Total Bilirubin 0.5 (0.2-1.0) mg/dL AST 25 (15-37) U/L ALT 15 (10-53) U/L Alkaline Phosphatase 122 H (45-117) U/L Troponin I (0.02-0.05) ng/mL Total Protein 6.3 L D (6.4-8.2) g/dL Albumin 3.1 L (3.4-5.0) g/dL Urine Color (Yellw/Straw) Urine Clarity (Clear) Urine pH (5.0-8.5) Ur Specific [place] (1.002-1.035) Urine Protein (Neg-Trace) mg/dL Urine Glucose (UA) (Negative) mg/dL Urine Ketones (Negative) mg/dL Urine Occult Blood (Negative) Urine Nitrate (Negative) Urine Bilirubin (Negative) Urine Urobilinogen (Less than 2) mg/dL Ur Leukocyte Esterase (Negative) Urine RBC (0-3) /hpf Urine WBC (0-5) /hpf Ur Squamous Epith Cells (0-5) /hpf Urine Bacteria (None) /hpf Urine Mucus (Occasional) /lpf Ur Microscopic Review Nasal Screen MRSA (PCR) (Negative) Random Vancomycin 8.1 Comment 01/28/18 01/29/18 01/29/18 Range/Units 23:41 03:43 03:43 WBC 17.3 H (4.0-11.0) th/mm3 RBC 3.15 L (4.00-5.30) mil/mm3 Hgb 9.7 L (11.6-15.3) gm/dL Hct 29.8 L (35.0-46.0) % MCV 94.4 (80.0-100.0) fL MCH 30.6 (27.0-34.0) pg MCHC 32.5 (32.0-36.0) % RDW 13.3 (11.6-17.2) % Plt Count 146 L (150-450) th/mm3 MPV 10.2 (7.0-11.0) fL Prelim Diff (Auto) Slide review pending Neut % (Auto) 94.0 H (16.0-70.0) % Lymph % (Auto) 3.5 L (9.0-44.0) % [place] % (Auto) 2.3 (0.0-8.0) % Eos % (Auto) 0.0 (0.0-4.0) % Baso % (Auto) 0.2 (0.0-2.0) % Neut # (Auto) 16.3 H (1.8-7.7) th/mm3 Lymph # (Auto) 0.6 L (1.0-4.8) th/mm3 [place] # (Auto) 0.4 (0.0-0.9) th/mm3 Eos # (Auto) 0.0 (0.0-0.4) th/mm3 Baso # (Auto) 0.0 (0.0-0.2) th/mm3 WBC Differential Manual diff final Seg Neuts % (Manual) 83 H (16-70) % Band Neuts % (Manual) 8 H (0-6) % Lymphocytes % (Manual) 7 L (9-44) % Monocytes % (Manual) 2 (0-8) % Abs Neuts (Manual) 15.7 H (1.8-7.7) th/mm3 Differential Comment . Platelet Estimate Low L (Normal) Platelet Morphology Normal (Normal) Ovalocytes 1+ H (None) Holt Cells 1+ H (None) PT (9.8-11.6) sec INR Ratio APTT (24.3-30.1) sec Puncture Site Patient Temperature O2 Saturation (90-100) % ABG pH (7.380-7.420) ABG pCO2 (38-42) mmHg ABG pO2 (61-120) mmHg ABG HCO3 (22-26) mmol/L ABG O2 Content (12.0-20.0) Vol % ABG Base Excess (-2-2) mmol/L ABG Methemoglobin (0-2) % [place] Test Hemoglobin (12.0-16.0) G/DL Carboxyhemoglobin (0-4) % O2 Delivery Device Vent Setting Inspired O2 % Critical Value Sodium 144 (136-145) meq/L Potassium 4.1 D (3.5-5.1) meq/L Chloride 112 H (98-107) meq/L Carbon Dioxide 20.7 L (21.0-32.0) meq/L Anion Gap 11 (5-15) meq/L BUN 20 H (7-18) mg/dL Creatinine 1.35 H (0.50-1.00) mg/dL Estimated GFR 39 L (>89) mL/min POC Glucose 149 H (68-110) mg/dl Random Glucose 149 H (74-106) mg/dL Lactic Acid (0.4-2.0) mmol/L Calcium 8.2 L (8.5-10.1) mg/dL Phosphorus 2.9 (2.5-4.9) mg/dL Magnesium 2.1 (1.5-2.5) mg/dL Total Bilirubin 0.4 (0.2-1.0) mg/dL AST 29 (15-37) U/L ALT 27 (10-53) U/L Alkaline Phosphatase 100 (45-117) U/L Troponin I (0.02-0.05) ng/mL Total Protein 6.7 (6.4-8.2) g/dL Albumin 3.3 L (3.4-5.0) g/dL Urine Color (Yellw/Straw) Urine Clarity (Clear) Urine pH (5.0-8.5) Ur Specific [place] (1.002-1.035) Urine Protein (Neg-Trace) mg/dL Urine Glucose (UA) (Negative) mg/dL Urine Ketones (Negative) mg/dL Urine Occult Blood (Negative) Urine Nitrate (Negative) Urine Bilirubin (Negative) Urine Urobilinogen (Less than 2) mg/dL Ur Leukocyte Esterase (Negative) Urine RBC (0-3) /hpf Urine WBC (0-5) /hpf Ur Squamous Epith Cells (0-5) /hpf Urine Bacteria (None) /hpf Urine Mucus (Occasional) /lpf Ur Microscopic Review Nasal Screen MRSA (PCR) (Negative) Random Vancomycin 17.3 Comment 01/29/18 01/29/18 01/29/18 Range/Units 06:22 11:13 16:27 WBC (4.0-11.0) th/mm3 RBC (4.00-5.30) mil/mm3 Hgb (11.6-15.3) gm/dL Hct (35.0-46.0) % MCV (80.0-100.0) fL MCH (27.0-34.0) pg MCHC (32.0-36.0) % RDW (11.6-17.2) % Plt Count (150-450) th/mm3 MPV (7.0-11.0) fL Prelim Diff (Auto) Neut % (Auto) (16.0-70.0) % Lymph % (Auto) (9.0-44.0) % [place] % (Auto) (0.0-8.0) % Eos % (Auto) (0.0-4.0) % Baso % (Auto) (0.0-2.0) % Neut # (Auto) (1.8-7.7) th/mm3 Lymph # (Auto) (1.0-4.8) th/mm3 [place] # (Auto) (0.0-0.9) th/mm3 Eos # (Auto) (0.0-0.4) th/mm3 Baso # (Auto) (0.0-0.2) th/mm3 WBC Differential Seg Neuts % (Manual) (16-70) % Band Neuts % (Manual) (0-6) % Lymphocytes % (Manual) (9-44) % Monocytes % (Manual) (0-8) % Abs Neuts (Manual) (1.8-7.7) th/mm3 Differential Comment Platelet Estimate (Normal) Platelet Morphology (Normal) Ovalocytes (None) Jordon Cells (None) PT (9.8-11.6) sec INR Ratio APTT (24.3-30.1) sec Puncture Site Patient Temperature O2 Saturation (90-100) % ABG pH (7.380-7.420) ABG pCO2 (38-42) mmHg ABG pO2 (61-120) mmHg ABG HCO3 (22-26) mmol/L ABG O2 Content (12.0-20.0) Vol % ABG Base Excess (-2-2) mmol/L ABG Methemoglobin (0-2) % [place] Test Hemoglobin (12.0-16.0) G/DL Carboxyhemoglobin (0-4) % O2 Delivery Device Vent Setting Inspired O2 % Critical Value Sodium (136-145) meq/L Potassium (3.5-5.1) meq/L Chloride (98-107) meq/L Carbon Dioxide (21.0-32.0) meq/L Anion Gap (5-15) meq/L BUN (7-18) mg/dL Creatinine (0.50-1.00) mg/dL Estimated GFR (>89) mL/min POC Glucose 147 H 168 H 110 (68-110) mg/dl Random Glucose (74-106) mg/dL Lactic Acid (0.4-2.0) mmol/L Calcium (8.5-10.1) mg/dL Phosphorus (2.5-4.9) mg/dL Magnesium (1.5-2.5) mg/dL Total Bilirubin (0.2-1.0) mg/dL AST (15-37) U/L ALT (10-53) U/L Alkaline Phosphatase (45-117) U/L Troponin I (0.02-0.05) ng/mL Total Protein (6.4-8.2) g/dL Albumin (3.4-5.0) g/dL Urine Color (Yellw/Straw) Urine Clarity (Clear) Urine pH (5.0-8.5) Ur Specific [place] (1.002-1.035) Urine Protein (Neg-Trace) mg/dL Urine Glucose (UA) (Negative) mg/dL Urine Ketones (Negative) mg/dL Urine Occult Blood (Negative) Urine Nitrate (Negative) Urine Bilirubin (Negative) Urine Urobilinogen (Less than 2) mg/dL Ur Leukocyte Esterase (Negative) Urine RBC (0-3) /hpf Urine WBC (0-5) /hpf Ur Squamous Epith Cells (0-5) /hpf Urine Bacteria (None) /hpf Urine Mucus (Occasional) /lpf Ur Microscopic Review Nasal Screen MRSA (PCR) (Negative) Random Vancomycin Comment 01/29/18 01/30/18 01/30/18 Range/Units 23:50 05:21 11:04 WBC (4.0-11.0) th/mm3 RBC (4.00-5.30) mil/mm3 Hgb (11.6-15.3) gm/dL Hct (35.0-46.0) % MCV (80.0-100.0) fL MCH (27.0-34.0) pg MCHC (32.0-36.0) % RDW (11.6-17.2) % Plt Count (150-450) th/mm3 MPV (7.0-11.0) fL Prelim Diff (Auto) Neut % (Auto) (16.0-70.0) % Lymph % (Auto) (9.0-44.0) % [place] % (Auto) (0.0-8.0) % Eos % (Auto) (0.0-4.0) % Baso % (Auto) (0.0-2.0) % Neut # (Auto) (1.8-7.7) th/mm3 Lymph # (Auto) (1.0-4.8) th/mm3 [place] # (Auto) (0.0-0.9) th/mm3 Eos # (Auto) (0.0-0.4) th/mm3 Baso # (Auto) (0.0-0.2) th/mm3 WBC Differential Seg Neuts % (Manual) (16-70) % Band Neuts % (Manual) (0-6) % Lymphocytes % (Manual) (9-44) % Monocytes % (Manual) (0-8) % Abs Neuts (Manual) (1.8-7.7) th/mm3 Differential Comment Platelet Estimate (Normal) Platelet Morphology (Normal) Ovalocytes (None) Jordon Cells (None) PT (9.8-11.6) sec INR Ratio APTT (24.3-30.1) sec Puncture Site Patient Temperature O2 Saturation (90-100) % ABG pH (7.380-7.420) ABG pCO2 (38-42) mmHg ABG pO2 (61-120) mmHg ABG HCO3 (22-26) mmol/L ABG O2 Content (12.0-20.0) Vol % ABG Base Excess (-2-2) mmol/L ABG Methemoglobin (0-2) % [place]ar Test Hemoglobin (12.0-16.0) G/DL Carboxyhemoglobin (0-4) % O2 Delivery Device Vent Setting Inspired O2 % Critical Value Sodium (136-145) meq/L Potassium (3.5-5.1) meq/L Chloride (98-107) meq/L Carbon Dioxide (21.0-32.0) meq/L Anion Gap (5-15) meq/L BUN (7-18) mg/dL Creatinine (0.50-1.00) mg/dL Estimated GFR (>89) mL/min POC Glucose 138 H 106 135 H (68-110) mg/dl Random Glucose (74-106) mg/dL Lactic Acid (0.4-2.0) mmol/L Calcium (8.5-10.1) mg/dL Phosphorus (2.5-4.9) mg/dL Magnesium (1.5-2.5) mg/dL Total Bilirubin (0.2-1.0) mg/dL AST (15-37) U/L ALT (10-53) U/L Alkaline Phosphatase (45-117) U/L Troponin I (0.02-0.05) ng/mL Total Protein (6.4-8.2) g/dL Albumin (3.4-5.0) g/dL Urine Color (Yellw/Straw) Urine Clarity (Clear) Urine pH (5.0-8.5) Ur Specific [place] (1.002-1.035) Urine Protein (Neg-Trace) mg/dL Urine Glucose (UA) (Negative) mg/dL Urine Ketones (Negative) mg/dL Urine Occult Blood (Negative) Urine Nitrate (Negative) Urine Bilirubin (Negative) Urine Urobilinogen (Less than 2) mg/dL Ur Leukocyte Esterase (Negative) Urine RBC (0-3) /hpf Urine WBC (0-5) /hpf Ur Squamous Epith Cells (0-5) /hpf Urine Bacteria (None) /hpf Urine Mucus (Occasional) /lpf Ur Microscopic Review Nasal Screen MRSA (PCR) (Negative) Random Vancomycin Comment 01/30/18 01/30/18 01/30/18 Range/Units 11:30 11:30 16:05 WBC 18.0 H (4.0-11.0) th/mm3 RBC 3.52 L (4.00-5.30) mil/mm3 Hgb 11.0 L (11.6-15.3) gm/dL Hct 33.2 L (35.0-46.0) % MCV 94.4 (80.0-100.0) fL MCH 31.3 (27.0-34.0) pg MCHC 33.2 (32.0-36.0) % RDW 13.7 (11.6-17.2) % Plt Count 167 (150-450) th/mm3 MPV 10.2 (7.0-11.0) fL Prelim Diff (Auto) Neut % (Auto) 93.0 H (16.0-70.0) % Lymph % (Auto) 4.1 L (9.0-44.0) % [place] % (Auto) 2.8 (0.0-8.0) % Eos % (Auto) 0.0 (0.0-4.0) % Baso % (Auto) 0.1 (0.0-2.0) % Neut # (Auto) 16.7 H (1.8-7.7) th/mm3 Lymph # (Auto) 0.7 L (1.0-4.8) th/mm3 [place] # (Auto) 0.5 (0.0-0.9) th/mm3 Eos # (Auto) 0.0 (0.0-0.4) th/mm3 Baso # (Auto) 0.0 (0.0-0.2) th/mm3 WBC Differential . Seg Neuts % (Manual) (16-70) % Band Neuts % (Manual) (0-6) % Lymphocytes % (Manual) (9-44) % Monocytes % (Manual) (0-8) % Abs Neuts (Manual) (1.8-7.7) th/mm3 Differential Comment Auto diff final Platelet Estimate (Normal) Platelet Morphology (Normal) Ovalocytes (None) Jordon Cells (None) PT (9.8-11.6) sec INR Ratio APTT (24.3-30.1) sec Puncture Site Patient Temperature O2 Saturation (90-100) % ABG pH (7.380-7.420) ABG pCO2 (38-42) mmHg ABG pO2 (61-120) mmHg ABG HCO3 (22-26) mmol/L ABG O2 Content (12.0-20.0) Vol % ABG Base Excess (-2-2) mmol/L ABG Methemoglobin (0-2) % [place] Test Hemoglobin (12.0-16.0) G/DL Carboxyhemoglobin (0-4) % O2 Delivery Device Vent Setting Inspired O2 % Critical Value Sodium 144 (136-145) meq/L Potassium 4.2 (3.5-5.1) meq/L Chloride 112 H (98-107) meq/L Carbon Dioxide 18.8 L (21.0-32.0) meq/L Anion Gap 13 (5-15) meq/L BUN 31 H (7-18) mg/dL Creatinine 1.33 H (0.50-1.00) mg/dL Estimated GFR 39 L (>89) mL/min POC Glucose 162 H (68-110) mg/dl Random Glucose 114 H (74-106) mg/dL Lactic Acid (0.4-2.0) mmol/L Calcium 8.4 L (8.5-10.1) mg/dL Phosphorus (2.5-4.9) mg/dL Magnesium (1.5-2.5) mg/dL Total Bilirubin 0.7 (0.2-1.0) mg/dL AST 223 H (15-37) U/L ALT 162 H (10-53) U/L Alkaline Phosphatase 130 H (45-117) U/L Troponin I (0.02-0.05) ng/mL Total Protein 6.8 (6.4-8.2) g/dL Albumin 3.4 (3.4-5.0) g/dL Urine Color (Yellw/Straw) Urine Clarity (Clear) Urine pH (5.0-8.5) Ur Specific [place] (1.002-1.035) Urine Protein (Neg-Trace) mg/dL Urine Glucose (UA) (Negative) mg/dL Urine Ketones (Negative) mg/dL Urine Occult Blood (Negative) Urine Nitrate (Negative) Urine Bilirubin (Negative) Urine Urobilinogen (Less than 2) mg/dL Ur Leukocyte Esterase (Negative) Urine RBC (0-3) /hpf Urine WBC (0-5) /hpf Ur Squamous Epith Cells (0-5) /hpf Urine Bacteria (None) /hpf Urine Mucus (Occasional) /lpf Ur Microscopic Review Nasal Screen MRSA (PCR) (Negative) Random Vancomycin Comment 01/30/18 Range/Units 20:32 WBC (4.0-11.0) th/mm3 RBC (4.00-5.30) mil/mm3 Hgb (11.6-15.3) gm/dL Hct (35.0-46.0) % MCV (80.0-100.0) fL MCH (27.0-34.0) pg MCHC (32.0-36.0) % RDW (11.6-17.2) % Plt Count (150-450) th/mm3 MPV (7.0-11.0) fL Prelim Diff (Auto) Neut % (Auto) (16.0-70.0) % Lymph % (Auto) (9.0-44.0) % [place] % (Auto) (0.0-8.0) % Eos % (Auto) (0.0-4.0) % Baso % (Auto) (0.0-2.0) % Neut # (Auto) (1.8-7.7) th/mm3 Lymph # (Auto) (1.0-4.8) th/mm3 [place] # (Auto) (0.0-0.9) th/mm3 Eos # (Auto) (0.0-0.4) th/mm3 Baso # (Auto) (0.0-0.2) th/mm3 WBC Differential Seg Neuts % (Manual) (16-70) % Band Neuts % (Manual) (0-6) % Lymphocytes % (Manual) (9-44) % Monocytes % (Manual) (0-8) % Abs Neuts (Manual) (1.8-7.7) th/mm3 Differential Comment Platelet Estimate (Normal) Platelet Morphology (Normal) Ovalocytes (None) Holt Cells (None) PT (9.8-11.6) sec INR Ratio APTT (24.3-30.1) sec Puncture Site Patient Temperature O2 Saturation (90-100) % ABG pH (7.380-7.420) ABG pCO2 (38-42) mmHg ABG pO2 (61-120) mmHg ABG HCO3 (22-26) mmol/L ABG O2 Content (12.0-20.0) Vol % ABG Base Excess (-2-2) mmol/L ABG Methemoglobin (0-2) % [place] Test Hemoglobin (12.0-16.0) G/DL Carboxyhemoglobin (0-4) % O2 Delivery Device Vent Setting Inspired O2 % Critical Value Sodium (136-145) meq/L Potassium (3.5-5.1) meq/L Chloride (98-107) meq/L Carbon Dioxide (21.0-32.0) meq/L Anion Gap (5-15) meq/L BUN (7-18) mg/dL Creatinine (0.50-1.00) mg/dL Estimated GFR (>89) mL/min POC Glucose 137 H (68-110) mg/dl Random Glucose (74-106) mg/dL Lactic Acid (0.4-2.0) mmol/L Calcium (8.5-10.1) mg/dL Phosphorus (2.5-4.9) mg/dL Magnesium (1.5-2.5) mg/dL Total Bilirubin (0.2-1.0) mg/dL AST (15-37) U/L ALT (10-53) U/L Alkaline Phosphatase (45-117) U/L Troponin I (0.02-0.05) ng/mL Total Protein (6.4-8.2) g/dL Albumin (3.4-5.0) g/dL Urine Color (Yellw/Straw) Urine Clarity (Clear) Urine pH (5.0-8.5) Ur Specific [place] (1.002-1.035) Urine Protein (Neg-Trace) mg/dL Urine Glucose (UA) (Negative) mg/dL Urine Ketones (Negative) mg/dL Urine Occult Blood (Negative) Urine Nitrate (Negative) Urine Bilirubin (Negative) Urine Urobilinogen (Less than 2) mg/dL Ur Leukocyte Esterase (Negative) Urine RBC (0-3) /hpf Urine WBC (0-5) /hpf Ur Squamous Epith Cells (0-5) /hpf Urine Bacteria (None) /hpf Urine Mucus (Occasional) /lpf Ur Microscopic Review Nasal Screen MRSA (PCR) (Negative) Random Vancomycin Comment Imaging Data Radiologist's impression: Chest X-Ray 01/27/18 09:24 Endotracheal tube is noted and the tip terminates 1 cm above the dorie. There is hazy interstitial prominence noted diffusely. Left breast calcifications are again seen. Enteric tube is present and the side-port projects just beyond the esophagogastric junction. CONCLUSION: Endotracheal tube as above. Chest CT 01/27/18 11:49 CONCLUSION: 1. Bilateral pleural effusions and patchy airspace disease. Discharge Plan Discharge Disposition Patient Disposition: 30 Still Patient Discharge Condition Condition: Serious Discharge Details Diagnosis: Sepsis, Pneumonia, UTI (urinary tract infection), Acute respiratory failure with hypoxia, Severe sepsis Physicians Team ED Provider: Robert Mohan Primary Care Provider: UNKNOWN, Attending Provider: Patricia Rodriguez Discharge Interventions Interventions: ED Discharge Assessment Last Done: 01/27/18 13:44 Status ED Status: Left Department Discharge Information Discharge Date/Time: 01/27/18 14:00
[2018-01-27] MEDS ORDERED: Piperacil/Tazo 4.5 GM Premix 4.5 GM/100 ML BAG IV.SIG ONE (09:47)
--- NOTE | 2018-01-27 09:52 | XR ---
EXAM DATE: 01/27/2018 9:49 AM EDT AGE/SEX: 67 years / Female INDICATIONS: Post intubation CLINICAL DATA: This is the patient's initial encounter. Patient reports that signs and symptoms have been present for 1 day and indicates a pain score of Nonresponsive. MEDICAL/SURGICAL HISTORY: Non-responsive. Non-responsive. [place] [facility] [place] [facility] [place]EL[place] CONTRAST, 10/16/2017. . FINDINGS: Endotracheal tube is noted and the tip terminates 1 cm above the dorie. There is hazy interstitial p rominence noted diffusely. Left breast calcifications are again seen. Enteric tube is present and the side-port projects just beyond the esophagogastric junction. CONCLUSION: Endotracheal tube as above. Electronically signed by: Luca Ren MD 01/27/2018 9:51 AM EDT
[2018-01-27] MEDS ORDERED: Vancomycin Inj 1 GM/200 ML PIGGYBACK IV.SIG SCH (10:00)
[2018-01-27 10:03] LABS: ABG PCO2 57 mmHg (38-42); ABG PO2 243 mmHg (61-120)
[2018-01-27 10:27] LABS: Baso # (Auto) 0.1 th/mm3 (0.0-0.2); Baso % (Auto) 0.7 % (0.0-2.0); Eos # (Auto) 0.3 th/mm3 (0.0-0.4); Eos % (Auto) 2.4 % (0.0-4.0); Hematocrit 36.1 % (35.0-46.0); Hemoglobin 11.6 gm/dL (11.6-15.3); Lymph # (Auto) 4.2 th/mm3 (1.0-4.8); Lymph % (Auto) 36.4 % (9.0-44.0); Mean Corpuscular Hemoglobin 31.2 pg (27.0-34.0); Mean Corpuscular Volume 97.3 fL (80.0-100.0); Mean Platelet Volume 9.9 fL (7.0-11.0); Mono # (Auto) 0.6 th/mm3 (0.0-0.9); Mono % (Auto) 5.4 % (0.0-8.0); Neut # (Auto) 6.4 th/mm3 (1.8-7.7); Neut % (Auto) 55.1 % (16.0-70.0); Platelet Count 177 th/mm3 (150-450); Red Blood Count 3.71 mil/mm3 (4.00-5.30); Red Cell Distribution Width 13.5 % (11.6-17.2); White Blood Count 11.6 th/mm3 (4.0-11.0)
[2018-01-27 10:29] LABS: Bacteria,Urine Many /hpf; Bilirubin,Urine Negative (Negative); Clarity,Urine Clear (Clear); Color,Urine Yellow (Yellw/Straw); Glucose,Urine (UA) Negative (Negative); Leukocyte Esterase,Urine Negative (Negative); Mucus,Urine Few /lpf (Occasional); Nitrite,Urine Positive (Negative); Squamous Epithelial Cell,Urine <1 /hpf (0-5)
[2018-01-27] MEDS ORDERED: Sod Chloride 0.9% Inj 1,000 ML IV.SIG SCH (11:00)
[2018-01-27 11:07] LABS: ABG Base Excess -5.8 mmol/L (-2-2); ABG PCO2 35 mmHg (38-42); ABG PO2 80 mmHg (61-120)
[2018-01-27 11:16] LABS: Alanine Aminotransferase 18 U/L (10-53)
[2018-01-27 11:20] LABS: Alkaline Phosphatase 155 U/L (45-117); Total Protein 7.3 g/dL (6.4-8.2)
[2018-01-27 11:30] LABS: Albumin 3.6 g/dL (3.4-5.0); Anion Gap 14 meq/L (5-15); Aspartate Aminotransferase 52 U/L (15-37); Blood Urea Nitrogen 15 mg/dL (7-18); Calcium 8.3 mg/dL (8.5-10.1); Carbon Dioxide 17.5 meq/L (21.0-32.0); Chloride 109 meq/L (98-107); Glomerular Filtration Rate 27 mL/min (>89); Glucose,Random 256 mg/dL (74-106); Sodium 140 meq/L (136-145)
[2018-01-27 11:31] LABS: Potassium 5.3 meq/L (3.5-5.1)
[2018-01-27] MEDS ORDERED: Etomidate Inj 20 MG/10 ML Ampul IV.PUSH ONE (11:39)
[2018-01-27] MEDS ORDERED: Succinylcholine Inj 200 MG/10 ML Vial IV.PUSH ONE (11:39)
[2018-01-27 11:42] LABS: INR 1.1 Ratio
[2018-01-27 11:53] LABS: Activated Partial Thrombo Time 19.9 sec (24.3-30.1)
[2018-01-27] MEDS ORDERED: Bisacodyl 10 MG Supp RECTAL PRN (11:56)
[2018-01-27] MEDS ORDERED: Piperacil/Tazo 3.375 GM Premix 50 ML IV.SIG SCH (12:15)
[2018-01-27] MEDS ORDERED: Dextrose 50% in Water 50 ML Vial IV.PUSH PRN (12:31)
[2018-01-27] MEDS ORDERED: Vancomycin Consult Pharmacy OTHER PRN (12:40)
[2018-01-27] MEDS ORDERED: Vancomycin Inj 1,000 MG in Sodium Chlor 0.9% Inj 250 ML IV.SIG SCH (13:00)
--- NOTE | 2018-01-27 13:18 | CT ---
EXAM DATE: 01/27/2018 1:08 PM EDT AGE/SEX: 67 years / Female INDICATIONS: Dyspnea, lethargic CLINICAL DATA: This is the patient's initial encounter. Patient reports that signs and symptoms have been present for 1 day and indicates a pain score of Nonresponsive. MEDICAL/SURGICAL HISTORY: Arthritis. Chronic obstructive pulmonary disease. Congestive heart fail ure. Dementia, Breast Cancer, stroke . Mastectomy RADIATION DOSE: 13.10 CTDI (mGy) COMPARISON: [facility] – [place], [place]ST 1V SINGLE AP, 01/27/2018. . TECHNIQUE: Multiple contiguous axial images were obtained through the chest without contrast. Image s were obtained in suspended respiration using multiple row detector helical technique. Using automa reuben exposure control and adjustment of the mA and/or kV according to patient size, radiation dose was kept as low as reasonably achievable to obtain optimal diagnostic quality images. DICOM format imag e data is available electronically for review and comparison. FINDINGS: Endotracheal tube is noted and the tip terminates at the origin of the right mainstem bronchus. Enter ic tube tip terminates in the stomach. There are coarse calcifications of the left breast. Moderate b ilateral pleural effusions are noted. Review of lung windows demonstrate patchy bilateral parenchymal infiltrates greatest in the lower lobes. Calcified left hilar lymph nodes are seen. The osseous stru ctures are intact. Atherosclerotic calcification of the aorta and coronary arteries. 1.3 cm right par atracheal lymph node, and subcentimeter calcified subcarinal lymph node. CONCLUSION: 1. Bilateral pleural effusions and patchy airspace disease. Electronically signed by: Luca Ren MD 01/27/2018 1:17 PM EDT
--- NOTE | 2018-01-27 14:00 | MH ---
cc: Chuck Emanuel MD DATE OF ADMISSION: 01/27/2018 HISTORY OF PRESENT ILLNESS: The patient is a 67-year-old female with past medical history of breast cancer, hypertension, arthritis, COPD, CHF, dementia, skilled nursing resident, who presented to [facility] ED with respiratory distress. Per EMS, the patient had initial O2 saturation in the 70s and, on arrival to the ED, she was in extremis and was subsequently intubated and placed on full mechanical ventilation. She also had a fever with a temperature of 101.1. LABORATORY DATA: WBC of 11.6. Post-intubation ABG showed acute hypercapnic respiratory acidosis with a pH of 7.12, CO2 57, PaO2 243, bicarbonate of 18, and saturation of 97%. Repeat ABG was performed at 10:52 which showed an improvement in her respiratory acidosis with a pH of 7.35, CO2 35, PaO2 of 80 on PRVC mode, rate of 18, tidal volume 500, PEEP of 8 and FiO2 50%. Her laboratory data was significant for mild acute kidney injury with creatinine level of 1.83 and lactic acidemia with a lactic acid level of 4.8. Also, her urinalysis was positive for nitrite, protein and 5 WBCs. Chest x-ray post-intubation showed a diffuse interstitial prominence. When seen, the patient was on Diprivan infusion for sedation. She is scheduled to undergo CT scan of the chest without contrast. In the ED, she was given Zosyn and about to receive vancomycin. PAST MEDICAL HISTORY: Significant for dementia, hypertension, TIA, arthritis, breast cancer, CHF, COPD. PAST SURGICAL HISTORY: Mastectomy. SOCIAL HISTORY: History of tobacco use. assisted resident. FAMILY HISTORY: Noncontributory to present illness. ALLERGIES: REVIEWED, INCLUDE ARIPIPRAZOLE. REVIEW OF SYSTEMS: As per HPI. Rest of review of systems unobtainable PHYSICAL EXAMINATION: GENERAL: A 67-year-old female, intubated for respiratory failure. VITAL SIGNS: Temperature of 101.8, pulse of 80, blood pressure 108/62, saturation 98%. HEENT: Atraumatic, normocephalic. Pupils are equal, round, reactive to light and accommodation. Extraocular muscles intact. Conjunctivae pink, anicteric sclerae. Oral mucosa within normal. NECK: Supple. No JVD, adenopathy or thyromegaly. Trachea in the midline. CARDIOVASCULAR: Regular rate and rhythm. Normal S1, S2. No murmurs, rubs or gallops noted. PULMONARY: Bilateral equal air entry with a few coarse breath sounds. ABDOMEN: Soft, nontender. No distention. Positive bowel sounds. EXTREMITIES: No cyanosis, clubbing, edema. NEUROLOGIC: Intubated and sedated with Diprivan. LABORATORY DATA: WBC 11.1, hemoglobin 11.6, hematocrit 36, platelet count of 177. Sodium 140, potassium 5.3, chloride 109, CO2 17, BUN 15, creatinine 1.83, glucose 256. Lactic acid 4.8, calcium 8.3. Troponin less than 0.02. Urinalysis positive for nitrites, 5 WBCs. RADIOGRAPHIC STUDIES: Chest x-ray shows diffuse interstitial prominence. ET tube above the dorie. ASSESSMENT AND PLAN: 1. Acute hypercapnic hypoxemic respiratory failure. 2. Chronic obstructive pulmonary disease exacerbation. 3. Acute kidney injury. 4. Lactic acidemia. 5. Urinary tract infection. 6. Hypertension. 7. History of breast cancer. 8. History of arthritis. RECOMMENDATIONS: 1. Continue with Diprivan infusion for sedation and daily sedation vacation. 2. Monitor neuro status closely per ICU protocol. 3. Continue with vent support and maintain sats above 92%. 4. We will place him on bronchodilators and 4 DuoNeb every 6 hours and initiate ICU vent bundle. Start SOLU-Medrol 60 mg IV every 8 hours. 5. The patient for CT chest without contrast for further evaluation of pulmonary parenchyma. 6. Monitor heart rate and blood pressure closely and maintain MAP greater than 65 mmHg. 7. Will give 1 liter bolus of normal saline and place on normal saline at 75 mL an hour. 8. Serial lactic acid monitoring until clear. 9. Monitor renal function, I's and O's and avoid nephrotoxins. Electrolyte replacement as needed. 10. Keep n.p.o. for now and place on Protonix 40 mg daily for gastrointestinal prophylaxis. Initiate tube feeds in the next 24 hours if remains intubated. 11. Continue with broad spectrum antibiotics in the form of vancomycin and Zosyn. Adjust doses of antibiotics per renal function. Followup on blood cultures. In addition, we will obtain a sputum culture with Gram stain, urine culture, strep pneumonia and legionella urinary antigen. 12. Monitor CBC. 13. Sliding scale insulin with Accu-Cheks for glycemic control. 14. Gastrointestinal prophylaxis with Protonix 40 mg daily. 15. Deep venous thrombosis prophylaxis with heparin subcutaneously and SCDs. 16. Further recommendations will be based on hospital course. MD COLETTE Carrero/janet , 12:39 PM , 12:53 PM
[2018-01-27] MEDS: Heparin - SQ 10,000 UNITS/ML Vial SQ SCH ×2 (18:07→23:26)
[2018-01-27] MEDS: Piperacil/Tazo 3.375 GM Premix 50 ML IV.SIG SCH (18:08)
[2018-01-27] MEDS: Insulin NovoLOG Aspart Correctional Sugar Inj SQ SCH (18:08)
[2018-01-27] MEDS: Sod Chloride 0.9% Inj 1,000 ML IV.CONT SCH (18:08)
[2018-01-27] MEDS: MethylPREDNISolone Sod Succinate Inj 40 MG/ML Vial IV.PUSH SCH ×2 (18:08→20:34)
[2018-01-27] MEDS: Senna/Docusate Sodium 8.6/50 MG Tablet PO SCH (20:34)
[2018-01-27] MEDS: Famotidine PF Inj 20 MG/2 ML Vial IV.PUSH SCH (20:35)
[2018-01-27] MEDS ORDERED: hydrALAZINE HCl Inj 20 MG/ML Vial IV.PUSH PRN (21:32)
[2018-01-27] MEDS: Labetalol HCl Inj 100 MG/20 ML Vial IV.PUSH PRN (21:45)
[2018-01-28] MEDS: Insulin NovoLOG Aspart Correctional Sugar Inj SQ SCH ×4 (01:12→17:00)
[2018-01-28] MEDS: Piperacil/Tazo 3.375 GM Premix 50 ML IV.SIG SCH ×3 (01:15→17:00)
[2018-01-28] MEDS: Labetalol HCl Inj 100 MG/20 ML Vial IV.PUSH PRN ×4 (01:51→20:40)
[2018-01-28] MEDS ORDERED: Chlorhexidine Gluconate 2% 1 Pack (2 Cloths) TOPICAL PRN (04:00)
[2018-01-28] MEDS: Propofol 1000 mg/100 ml Inj 1,000 MG/100 ML BOTTLE IV.CONT PRN (04:09)
[2018-01-28] MEDS: MethylPREDNISolone Sod Succinate Inj 40 MG/ML Vial IV.PUSH SCH ×3 (04:09→20:37)
[2018-01-28 04:37] LABS: Baso % (Auto) 0.1 % (0.0-2.0); Hematocrit 32.9 % (35.0-46.0); Hemoglobin 10.9 gm/dL (11.6-15.3); Lymph # (Auto) 0.6 th/mm3 (1.0-4.8); Lymph % (Auto) 5.2 % (9.0-44.0); Mean Corpuscular HGB Conc 33.1 % (32.0-36.0); Mean Corpuscular Hemoglobin 31.1 pg (27.0-34.0); Mean Corpuscular Volume 93.9 fL (80.0-100.0); Mean Platelet Volume 9.7 fL (7.0-11.0); Mono # (Auto) 0.2 th/mm3 (0.0-0.9); Mono % (Auto) 1.8 % (0.0-8.0); Neut % (Auto) 92.9 % (16.0-70.0); Platelet Count 134 th/mm3 (150-450); Red Blood Count 3.51 mil/mm3 (4.00-5.30); Red Cell Distribution Width 13.2 % (11.6-17.2); White Blood Count 10.8 th/mm3 (4.0-11.0)
[2018-01-28 05:05] LABS: Alanine Aminotransferase 15 U/L (10-53); Albumin 3.1 g/dL (3.4-5.0); Alkaline Phosphatase 122 U/L (45-117); Anion Gap 14 meq/L (5-15); Aspartate Aminotransferase 25 U/L (15-37); Blood Urea Nitrogen 17 mg/dL (7-18); Calcium 7.9 mg/dL (8.5-10.1); Carbon Dioxide 18.8 meq/L (21.0-32.0); Chloride 109 meq/L (98-107); Glomerular Filtration Rate 36 mL/min (>89); Glucose,Random 191 mg/dL (74-106); Magnesium 1.7 mg/dL (1.5-2.5); Phosphorus 2.9 mg/dL (2.5-4.9); Potassium 3.3 meq/L (3.5-5.1); Sodium 142 meq/L (136-145); Total Protein 6.3 g/dL (6.4-8.2); Vancomycin,Random 8.1 Comment
[2018-01-28] MEDS: Chlorhexidine Gluconate 2% 1 Pack (2 Cloths) TOPICAL SCH (05:57)
[2018-01-28] MEDS ORDERED: Potassium Chloride 25 MEQ Effervescent Tablet PO PRN (07:38)
[2018-01-28] MEDS ORDERED: Magnesium Sulfate Inj 4 GM in Sodium Chlor 0.9% Inj 92 ML IV.SIG PRN (07:38)
[2018-01-28] MEDS ORDERED: Potassium Phosphate Inj 30 MMOL in Sodium Chlor 0.9% Inj 250 ML IV.SIG PRN (07:38)
[2018-01-28] MEDS ORDERED: Magnesium Sulfate Inj 2 GM in Sodium Chlor 0.9% Inj 96 ML IV.SIG PRN (07:38)
[2018-01-28] MEDS ORDERED: Sodium Phosphate Inj 30 MMOL in Sodium Chlor 0.9% Inj 250 ML IV.SIG PRN (07:38)
[2018-01-28] MEDS ORDERED: Potassium Chlor 40 mEq Premix 40 MEQ/100 ML PIGGYBACK IV.SIG PRN ×2 (07:38)
[2018-01-28] MEDS ORDERED: Potassium Chlor 20 mEq Premix 20 MEQ/100 ML PIGGYBACK IV.SIG PRN ×2 (07:38)
[2018-01-28] MEDS ORDERED: Magnesium Oxide 400 MG Tablet PO PRN (07:38)
[2018-01-28] MEDS ORDERED: Potassium Phosphate 500 MG Soluble Tablet PO PRN ×2 (07:38)
--- NOTE | 2018-01-28 07:42 | P.PNCC ---
Subjective Subjective Remarks/Hospital Course: Patient is a 67-year-old female with past medical history of breast cancer, hypertension, arthritis, COPD, CHF, dementia, [facility] resident, who presented to [facility] ED with respiratory distress. Per EMS, the patient had initial O2 saturation in the 70s and, on arrival to the ED, she was in extremis and was subsequently intubated and placed on full mechanical ventilation. She also had a fever with a temperature of 101.1. Her labs showed WBC of 11.6. Post-intubation ABG showed acute hypercapnic respiratory acidosis with a pH of 7.12, CO2 57, PaO2 243, bicarbonate of 18, and saturation of 97%. Repeat ABG was performed at 10:52 which showed an improvement in her respiratory acidosis with a pH of 7.35, CO2 35, PaO2 of 80 on PRVC mode, rate of 18, tidal volume 500, PEEP of 8 and FiO2 50%. Her laboratory data was significant for mild acute kidney injury with creatinine level of 1.83 and lactic acidemia with a lactic acid level of 4.8. Also, her urinalysis was positive for nitrite, protein and 5 WBCs. Chest x-ray post- intubation showed a diffuse interstitial prominence. When seen, the patient was on Diprivan infusion for sedation. She is scheduled to undergo CT scan of the chest without contrast. In the ED, she was given Zosyn and about to receive vancomycin. 01/28 Patient is intubated and sedated with Diprivan. Afebrile. Renal function is improving with Cr: 1.45 from 1.83. Afebrile. Objective Vital Signs / I&O: Vital Signs 01/27/18 09:22 01/27/18 09:34 01/27/18 10:05 Temperature 101.8 F H 101.8 F H Pulse Rate 103 H 100 H Respiratory Rate 35 H 18 24 Blood Pressure 157/78 H 125/68 Pulse Oximetry 98 100 100 01/27/18 11:05 01/27/18 11:57 01/27/18 14:06 Temperature Pulse Rate 85 79 Respiratory Rate 18 18 18 Blood Pressure 104/55 L 108/62 Pulse Oximetry 92 L 100 100 01/27/18 14:56 01/27/18 15:00 01/27/18 15:30 Temperature Pulse Rate 88 95 H 92 H Respiratory Rate 12 11 L 9 L Blood Pressure 160/87 H 164/92 H Pulse Oximetry 100 100 100 01/27/18 15:53 01/27/18 16:00 01/27/18 16:30 Temperature Pulse Rate 92 H 95 H 95 H Respiratory Rate 18 18 18 Blood Pressure 179/87 H 175/91 H Pulse Oximetry 100 100 01/27/18 17:00 01/27/18 17:30 01/27/18 18:00 Temperature Pulse Rate 94 H 93 H 95 H Respiratory Rate 18 18 14 Blood Pressure 172/96 H 171/90 H 166/91 H Pulse Oximetry 100 100 100 01/27/18 19:47 01/27/18 19:48 01/27/18 20:00 Temperature 97.5 F L Pulse Rate 96 H 94 H Respiratory Rate 18 18 18 Blood Pressure 181/98 H Pulse Oximetry 100 100 01/27/18 23:33 01/27/18 23:35 01/28/18 00:00 Temperature 99.1 F Pulse Rate 81 85 Respiratory Rate 18 18 18 Blood Pressure 171/85 H Pulse Oximetry 100 100 01/28/18 03:35 01/28/18 04:00 Temperature 98.8 F Pulse Rate 65 65 Respiratory Rate 18 18 Blood Pressure 122/58 L Pulse Oximetry 100 100 Intake & Output 01/27/18 01/28/18 01/28/18 18:59 06:59 18:59 Intake Total 150 / 150 1550 / 1550 Output Total 500 / 500 450 / 450 Balance -350 / -350 1100 / 1100 Weight 68.039 kg 64.5 kg Intake: IV 150 / 150 1450 / 1450 Diprivan 1000 mg/100 ml Inj 1, 100 / 100 50 / 50 000 mg In 100 ml @ 5 MCG/KG/MIN 2.041 mls/hr IV.CONT TITRATE PRN Rx#:[id number] Zosyn 3.375 GM Premix 50 ML @ 50 / 50 50 / 50 100 mls/hr IV.SIG Q8H CHANDANA Rx#: [id number] NS Inj 1,000 ML @ Wide Open IV. 1000 / 1000 SIG BOLUS CHANDANA Rx#:[id number] Tube Irrigant 100 / 100 Output: Urine Amount (Catheter) 500 / 500 450 / 450 Indwelling Urethral Catheter 500 / 500 450 / 450 Other: # Bowel Movements 0 Result Diagrams: 01/28/18 03:37 01/28/18 03:37 Other Results: Laboratory Results - last 12 hr 01/27/18 01/27/18 01/28/18 16:39 23:30 03:37 WBC 10.8 RBC 3.51 L Hgb 10.9 L Hct 32.9 L MCV 93.9 MCH 31.1 MCHC 33.1 RDW 13.2 Plt Count 134 L MPV 9.7 Neut % (Auto) 92.9 H Lymph % (Auto) 5.2 L Sebastian % (Auto) 1.8 Eos % (Auto) 0.0 Baso % (Auto) 0.1 Neut # (Auto) 10.0 H Lymph # (Auto) 0.6 L Sebastian # (Auto) 0.2 Eos # (Auto) 0.0 Baso # (Auto) 0.0 WBC Differential . Differential Comment Auto diff final Sodium Potassium Chloride Carbon Dioxide Anion Gap BUN Creatinine Estimated GFR POC Glucose 154 H Random Glucose Calcium Phosphorus Magnesium Total Bilirubin AST ALT Alkaline Phosphatase Total Protein Albumin Nasal Screen MRSA (PCR) Not detected Random Vancomycin 01/28/18 03:37 WBC RBC Hgb Hct MCV MCH MCHC RDW Plt Count MPV Neut % (Auto) Lymph % (Auto) Sebastian % (Auto) Eos % (Auto) Baso % (Auto) Neut # (Auto) Lymph # (Auto) Sebastian # (Auto) Eos # (Auto) Baso # (Auto) WBC Differential Differential Comment Sodium 142 Potassium 3.3 L D Chloride 109 H Carbon Dioxide 18.8 L Anion Gap 14 BUN 17 Creatinine 1.45 H Estimated GFR 36 L POC Glucose Random Glucose 191 H Calcium 7.9 L Phosphorus 2.9 Magnesium 1.7 Total Bilirubin 0.5 AST 25 ALT 15 Alkaline Phosphatase 122 H Total Protein 6.3 L D Albumin 3.1 L Nasal Screen MRSA (PCR) Random Vancomycin 8.1 Imaging: Chest X-Ray 01/27/18 09:24 Endotracheal tube is noted and the tip terminates 1 cm above the dorie. There is hazy interstitial prominence noted diffusely. Left breast calcifications are again seen. Enteric tube is present and the side-port projects just beyond the esophagogastric junction. CONCLUSION: Endotracheal tube as above. Chest CT 01/27/18 11:49 CONCLUSION: 1. Bilateral pleural effusions and patchy airspace disease. Objective Remarks: GENERAL: Patient is 67 yo intubated and sedated SKIN: Warm and dry. HEAD: Normocephalic. EYES: No scleral icterus. No injection or drainage. NECK: Supple, trachea midline. No JVD or lymphadenopathy. CARDIOVASCULAR: Regular rate and rhythm without murmurs, gallops, or rubs. RESPIRATORY: Breath sounds equal bilaterally. No accessory muscle use. GASTROINTESTINAL: Abdomen soft, non-tender, nondistended. MUSCULOSKELETAL: No cyanosis, or edema. Neuro: Sedated Assessment and Plan - Assessment and Plan Plan: 1. Acute hypercapnic hypoxemic respiratory failure. 2. Chronic obstructive pulmonary disease exacerbation. 3. Acute kidney injury. 4. Lactic acidemia. 5. Urinary tract infection. 6. Hypertension. 7. History of breast cancer. 8. History of arthritis. 9 Hypertension Plan Neuro: On Diprivan infusion for sedation. Daily sedation vacation. Monitor neuro status Pulm: Continue with vent support and maintain sats > 92%. Bronchodilators, ICU vent bundle. Solumederol 60 mg IV every 8 SBT daily CV: Monitor HR and BP and maintain MAP> 65 mmHg. Lactic acid cleared 1.[address] Hydralazine Hydralazine 50mg TID : Monitor renal function, I's and O's, Electrolyte replacement per protocol. Renal function is improving with Cr: 1.45 from 1.83. Will need K replacement today. Continue with NS@84ml/hr GI: on Protonix 40 mg daily, start tube feeds today if remains intubated. ID: Continue with abx(vancomycin and Zosyn). sputum, urine culture, strep pneumonia and legionella urinary antigen all pending. Heme: Monitor CBC. Endo: SSI with Accu-Cheks for glycemic control. GI prophylaxis-with Protonix 40 mg daily. DVT prophylaxis with heparin subcutaneously and SCDs. Level 3
[2018-01-28] MEDS: Senna/Docusate Sodium 8.6/50 MG Tablet PO SCH ×2 (08:20→20:37)
[2018-01-28] MEDS: Famotidine PF Inj 20 MG/2 ML Vial IV.PUSH SCH ×2 (08:20→20:37)
[2018-01-28 09:38] LABS: ABG Base Excess -8.8 mmol/L (-2-2); ABG PCO2 23 mmHg (38-42); ABG PO2 185 mmHG (61-120)
[2018-01-28] MEDS: Sod Chloride 0.9% Inj 1,000 ML IV.CONT SCH ×2 (10:47→16:57)
[2018-01-28] MEDS: Heparin - SQ 10,000 UNITS/ML Vial SQ SCH ×2 (13:53→23:39)
[2018-01-28] MEDS: hydrALAZINE 50 MG Tablet PO SCH ×2 (14:57→17:00)
[2018-01-28] MEDS ORDERED: Vancomycin Inj 1,250 MG in Sodium Chlor 0.9% Inj 250 ML IV.SIG ONE (15:00)
[2018-01-28] MEDS: Budesonide-Formoterol 160/4.5 MCG 6 GM Inhaler INH SCH ×2 (16:20→20:38)
[2018-01-29] MEDS: Insulin NovoLOG Aspart Correctional Sugar Inj SQ SCH ×5 (00:12→23:53)
[2018-01-29] MEDS: Piperacil/Tazo 3.375 GM Premix 50 ML IV.SIG SCH ×3 (01:46→17:56)
[2018-01-29] MEDS: MethylPREDNISolone Sod Succinate Inj 40 MG/ML Vial IV.PUSH SCH ×3 (03:42→20:38)
[2018-01-29] MEDS: Chlorhexidine Gluconate 2% 1 Pack (2 Cloths) TOPICAL SCH (03:43)
[2018-01-29] MEDS: Sod Chloride 0.9% Inj 1,000 ML IV.CONT SCH ×2 (03:43→12:47)
[2018-01-29 05:46] LABS: Baso % (Auto) 0.2 % (0.0-2.0); Hematocrit 29.8 % (35.0-46.0); Hemoglobin 9.7 gm/dL (11.6-15.3); Lymph # (Auto) 0.6 th/mm3 (1.0-4.8); Lymph % (Auto) 3.5 % (9.0-44.0); Mean Corpuscular HGB Conc 32.5 % (32.0-36.0); Mean Corpuscular Hemoglobin 30.6 pg (27.0-34.0); Mean Corpuscular Volume 94.4 fL (80.0-100.0); Mean Platelet Volume 10.2 fL (7.0-11.0); Mono # (Auto) 0.4 th/mm3 (0.0-0.9); Mono % (Auto) 2.3 % (0.0-8.0); Neut # (Auto) 16.3 th/mm3 (1.8-7.7); Platelet Count 146 th/mm3 (150-450); Red Blood Count 3.15 mil/mm3 (4.00-5.30); Red Cell Distribution Width 13.3 % (11.6-17.2); White Blood Count 17.3 th/mm3 (4.0-11.0)
[2018-01-29 06:12] LABS: Alanine Aminotransferase 27 U/L (10-53); Albumin 3.3 g/dL (3.4-5.0); Anion Gap 11 meq/L (5-15); Aspartate Aminotransferase 29 U/L (15-37); Blood Urea Nitrogen 20 mg/dL (7-18); Calcium 8.2 mg/dL (8.5-10.1); Carbon Dioxide 20.7 meq/L (21.0-32.0); Chloride 112 meq/L (98-107); Glomerular Filtration Rate 39 mL/min (>89); Glucose,Random 149 mg/dL (74-106); Magnesium 2.1 mg/dL (1.5-2.5); Phosphorus 2.9 mg/dL (2.5-4.9); Potassium 4.1 meq/L (3.5-5.1); Sodium 144 meq/L (136-145)
[2018-01-29 06:14] LABS: Alkaline Phosphatase 100 U/L (45-117); Total Protein 6.7 g/dL (6.4-8.2); Vancomycin,Random 17.3 Comment
[2018-01-29] MEDS: Labetalol HCl Inj 100 MG/20 ML Vial IV.PUSH PRN (06:20)
[2018-01-29 08:21] LABS: Burr Cells 1+; Lymphocytes 7 % (9-44); Monocytes 2 % (0-8); Ovalocytes 1+; Platelet Morphology Normal (Normal)
--- NOTE | 2018-01-29 09:47 | P.PN ---
Subjective Interval history: Follow-up acute respiratory failure with COPD exacerbation January 29, 2018-patient seen and examined, reported improvement of shortness of breath. Creatinine improving. BP labile. She denies any chest pain Physical Exam Vital signs: Vital Signs 01/28/18 09:57 01/28/18 10:00 01/28/18 10:31 Temperature Pulse Rate 74 77 78 Respiratory Rate 26 H 25 H 22 Blood Pressure 158/78 H 165/88 H Pulse Oximetry 100 100 100 01/28/18 11:00 01/28/18 11:19 01/28/18 12:00 Temperature 98.5 F Pulse Rate 75 76 78 Respiratory Rate 23 27 H 22 Blood Pressure 165/85 H 138/81 Pulse Oximetry 100 100 100 01/28/18 13:00 01/28/18 14:00 01/28/18 15:00 Temperature Pulse Rate 76 81 86 Respiratory Rate 47 H 63 H 60 H Blood Pressure 168/74 H 160/102 H 182/94 H Pulse Oximetry 100 99 98 01/28/18 15:17 01/28/18 16:00 01/28/18 16:44 Temperature 98.5 F Pulse Rate 79 80 85 Respiratory Rate 57 H 20 24 Blood Pressure 150/82 H 159/75 H Pulse Oximetry 98 100 01/28/18 17:00 01/28/18 18:00 01/28/18 19:00 Temperature Pulse Rate 88 87 98 H Respiratory Rate 59 H 82 H 93 H Blood Pressure 158/90 H 167/78 H Pulse Oximetry 99 98 100 01/28/18 19:43 01/28/18 19:45 01/28/18 20:00 Temperature 98.7 F Pulse Rate 89 91 H Respiratory Rate 19 56 H Blood Pressure 171/78 H Pulse Oximetry 100 100 01/28/18 21:00 01/28/18 22:00 01/28/18 23:00 Temperature Pulse Rate 88 89 98 H Respiratory Rate 63 H 73 H 102 H Blood Pressure 163/72 H 156/76 H 170/92 H Pulse Oximetry 99 99 97 01/28/18 23:15 01/28/18 23:16 01/29/18 00:00 Temperature 98.5 F Pulse Rate 90 92 H Respiratory Rate 21 24 Blood Pressure 158/80 H Pulse Oximetry 98 100 01/29/18 01:00 01/29/18 01:35 01/29/18 02:00 Temperature Pulse Rate 97 H 91 H 91 H Respiratory Rate 24 22 23 Blood Pressure 185/98 H 160/78 H 179/84 H Pulse Oximetry 99 98 98 01/29/18 03:00 01/29/18 04:00 01/29/18 04:36 Temperature 98.8 F Pulse Rate 84 80 87 Respiratory Rate 21 28 H 20 Blood Pressure 157/72 H 178/83 H Pulse Oximetry 98 100 98 01/29/18 05:00 01/29/18 06:00 01/29/18 07:00 Temperature Pulse Rate 88 87 89 Respiratory Rate 24 37 H 29 H Blood Pressure 164/81 H 168/80 H 164/81 H Pulse Oximetry 98 100 98 01/29/18 07:54 01/29/18 08:00 01/29/18 08:01 Temperature 98.3 F Pulse Rate 84 87 91 H Respiratory Rate 14 30 H 31 H Blood Pressure 184/99 H Pulse Oximetry 100 92 L 98 Intake & Output 01/28/18 01/29/18 01/29/18 18:59 06:59 18:59 Intake Total 2872.5 / 2872.5 1200 / 1200 Output Total 600 / 600 750 / 750 Balance 2272.5 / 2272.5 450 / 450 Weight 66 kg Intake: IV 2392.5 / 2392.5 1100 / 1100 Diprivan 1000 mg/100 ml Inj 1, 80 / 80 000 mg In 100 ml @ 5 MCG/KG/MIN 2.041 mls/hr IV.CONT TITRATE PRN Rx#:[id number] NS Inj 1,000 ML @ 84 mls/hr IV. 1999 / 1999 1000 / 1000 CONT .[id number] [facility] Rx#:[id number] Zosyn 3.375 GM Premix 50 ML @ 50 / 50 100 / 100 100 mls/hr IV.SIG Q8H [facility] Rx#: [id number] Vancomycin Inj 1,250 MG In NS 262.5 / 262.5 Inj 250 ML @ 250 mls/hr IV.SIG ONCE ONE Rx#:[id number] Oral 480 / 480 100 / 100 Output: Urine Amount (Catheter) 600 / 600 750 / 750 Indwelling Urethral Catheter 600 / 600 750 / 750 Other: # Bowel Movements 0 0 Narrative: GENERAL: NAD SKIN: Warm and dry. HEAD: Normocephalic. EYES: No scleral icterus. No injection or drainage. NECK: Supple, trachea midline. No JVD or lymphadenopathy. CARDIOVASCULAR: Regular rate and rhythm without murmurs, gallops, or rubs. RESPIRATORY: Breath sounds equal bilaterally. No accessory muscle use. GASTROINTESTINAL: Abdomen soft, non-tender, nondistended. MUSCULOSKELETAL: No cyanosis, or edema. BACK: Nontender without obvious deformity. No CVA tenderness. - Urinary Catheter Management Indwelling Urethral Catheter Cath placed during this visit: yes, but has since been removed by the nurse Reason for continuing: Decision to DC catheter Insertion date: 01/27/18 Insertion time: 09:35 Removal date: 01/29/18 Removal time: 04:30 Results - Labs CBC & Chem 7: 01/29/18 03:43 01/29/18 03:43 Laboratory Results - last 24 hr 01/28/18 01/28/18 01/28/18 09:17 12:43 23:41 WBC RBC Hgb Hct MCV MCH MCHC RDW Plt Count MPV Prelim Diff (Auto) Neut % (Auto) Lymph % (Auto) [place] % (Auto) Eos % (Auto) Baso % (Auto) Neut # (Auto) Lymph # (Auto) [place] # (Auto) Eos # (Auto) Baso # (Auto) WBC Differential Seg Neuts % (Manual) Band Neuts % (Manual) Lymphocytes % (Manual) Monocytes % (Manual) Abs Neuts (Manual) Differential Comment Platelet Estimate Platelet Morphology Ovalocytes [place] Cells Puncture Site Right radial Patient Temperature 98.6 O2 Saturation 97 ABG pH 7.43 H ABG pCO2 23 L* ABG pO2 185 H ABG HCO3 15 L* ABG O2 Content 15.2 ABG Base Excess -8.8 L ABG Methemoglobin 1.8 [place] Test Present Hemoglobin 10.9 L Carboxyhemoglobin 0.5 O2 Delivery Device Ventilator Vent Setting See comments Inspired O2 40 Critical Value Yes Sodium Potassium Chloride Carbon Dioxide Anion Gap BUN Creatinine Estimated GFR POC Glucose 175 H 149 H Random Glucose Calcium Phosphorus Magnesium Total Bilirubin AST ALT Alkaline Phosphatase Total Protein Albumin Random Vancomycin 01/29/18 01/29/18 01/29/18 03:43 03:43 06:22 WBC 17.3 H RBC 3.15 L Hgb 9.7 L Hct 29.8 L MCV 94.4 MCH 30.6 MCHC 32.5 RDW 13.3 Plt Count 146 L MPV 10.2 Prelim Diff (Auto) Slide review pending Neut % (Auto) 94.0 H Lymph % (Auto) 3.5 L [place] % (Auto) 2.3 Eos % (Auto) 0.0 Baso % (Auto) 0.2 Neut # (Auto) 16.3 H Lymph # (Auto) 0.6 L [place] # (Auto) 0.4 Eos # (Auto) 0.0 Baso # (Auto) 0.0 WBC Differential Manual diff final Seg Neuts % (Manual) 83 H Band Neuts % (Manual) 8 H Lymphocytes % (Manual) 7 L Monocytes % (Manual) 2 Abs Neuts (Manual) 15.7 H Differential Comment . Platelet Estimate Low L Platelet Morphology Normal Ovalocytes 1+ H [place] Cells 1+ H Puncture Site Patient Temperature O2 Saturation ABG pH ABG pCO2 ABG pO2 ABG HCO3 ABG O2 Content ABG Base Excess ABG Methemoglobin [place] Test Hemoglobin Carboxyhemoglobin O2 Delivery Device Vent Setting Inspired O2 Critical Value Sodium 144 Potassium 4.1 D Chloride 112 H Carbon Dioxide 20.7 L Anion Gap 11 BUN 20 H Creatinine 1.35 H Estimated GFR 39 L POC Glucose 147 H Random Glucose 149 H Calcium 8.2 L Phosphorus 2.9 Magnesium 2.1 Total Bilirubin 0.4 AST 29 ALT 27 Alkaline Phosphatase 100 Total Protein 6.7 Albumin 3.3 L Random Vancomycin 17.3 Microbiology 01/27/18 19:50 Sputum - Endotracheal Gram Stain - Final 01/27/18 19:50 Sputum - Endotracheal Sputum Culture - Preliminary Immature growth - reincubate 01/27/18 10:05 Blood - Peripheral Aerobic Blood Culture - Preliminary No growth in 1 day 01/27/18 10:05 Blood - Peripheral Anaerobic Blood Culture - Preliminary No growth in 1 day 01/27/18 10:00 Blood - Peripheral Aerobic Blood Culture - Preliminary No growth in 1 day 01/27/18 10:00 Blood - Peripheral Anaerobic Blood Culture - Preliminary No growth in 1 day 01/27/18 19:50 Catheterized Urine Urine Culture - Preliminary Immature growth - reincubate 01/27/18 19:50 Urine - Catheterized Urine Streptococcus pneumoniae Antigen ( M - Final Presumptive negative for streptococcus pneumoniae antigen, suggesting no current or recent infection. Infection due to Streptococcus pneumoniae cannot be ruled out since the antigen present in the sample may be below the detection limit of the test. 01/27/18 19:50 Urine - Catheterized Urine Legionella Antigen - Final Presumptive negative for Legionella pneumophila serogroup 1 antigen in urine, suggesting no recent or recurrent infection. Infection due to Legionella cannot be ruled out since other serogroups and species may cause disease, antigen may not be present in urine in early infection, and the level of antigen present in the urine may be below the detection limit of the test. Assessment and Plan - Plan 68-year-old female with Acute hypercapnic hypoxemic respiratory failure-resolved Chronic obstructive pulmonary disease exacerbation. Currently on Solu-Medrol 60 mg IV every 8 hour, DuoNeb Start Symbicort, Spiriva and continue with current IV antibiotic Monitor culture; strep pneumonia and legionella urinary antigens negative Acute kidney injury. Creatinine improving Monitor BUN and creatinine, and avoid all nephrotoxic drug Lactic acidemia improving Urinary tract infection Continue with Zosyn pending urine culture Labile benign hypertension. Resume lisinopril 20 mg daily, Propanolol 10 mg daily and continue with hydralazine 50 mg 3 times daily History of breast cancer Chronic, outpatient management Consult to treat and eval Transfer to [facility] GI prophylaxis-with Protonix 40 mg daily. DVT prophylaxis with heparin subcutaneously and SCDs.
[2018-01-29] MEDS: Famotidine PF Inj 20 MG/2 ML Vial IV.PUSH SCH ×2 (09:49→20:37)
[2018-01-29] MEDS: hydrALAZINE 50 MG Tablet PO SCH ×3 (09:49→17:55)
[2018-01-29] MEDS: Senna/Docusate Sodium 8.6/50 MG Tablet PO SCH ×2 (09:49→20:38)
[2018-01-29] MEDS: Budesonide-Formoterol 160/4.5 MCG 6 GM Inhaler INH SCH ×2 (09:49→20:37)
[2018-01-29] MEDS: Lisinopril 20 MG Tablet PO SCH (10:24)
[2018-01-29] MEDS: Propranolol 10 MG Tablet PO SCH (10:24)
[2018-01-29] MEDS: Heparin - SQ 10,000 UNITS/ML Vial SQ SCH ×2 (11:35→23:00)
[2018-01-29] MEDS: Vancomycin Inj 750 MG in Sodium Chlor 0.9% Inj 250 ML IV.SIG SCH (16:48)
[2018-01-29] MEDS: guaiFENesin 600 MG ER Tablet PO SCH (18:13)
[2018-01-30] MEDS: Sod Chloride 0.9% Inj 1,000 ML IV.CONT SCH ×2 (01:18→11:25)
[2018-01-30] MEDS: Piperacil/Tazo 3.375 GM Premix 50 ML IV.SIG SCH ×3 (02:03→17:15)
[2018-01-30] MEDS: Chlorhexidine Gluconate 2% 1 Pack (2 Cloths) TOPICAL SCH (04:56)
[2018-01-30] MEDS: MethylPREDNISolone Sod Succinate Inj 40 MG/ML Vial IV.PUSH SCH ×3 (05:22→17:15)
[2018-01-30] MEDS: Insulin NovoLOG Aspart Correctional Sugar Inj SQ SCH ×3 (05:22→17:16)
--- NOTE | 2018-01-30 08:58 | P.PNIM ---
Subjective Interval history: f/u; copd exacerbation in no acute distress. however on three liters of oxygen via [place] still with cough. complaining f mild abdominal pain. no fever. Physical Exam Vital signs: Vital Signs 01/29/18 09:00 01/29/18 10:00 01/29/18 11:00 Temperature Pulse Rate 91 H 92 H 82 Respiratory Rate 23 31 H 24 Blood Pressure 181/91 H 153/86 H 184/85 H Pulse Oximetry 98 99 100 01/29/18 11:15 01/29/18 11:42 01/29/18 12:00 Temperature 98.7 F Pulse Rate 82 82 80 Respiratory Rate 14 30 H 24 Blood Pressure 169/98 H 178/88 H Pulse Oximetry 99 100 01/29/18 15:08 01/29/18 16:00 01/29/18 16:33 Temperature 96.6 F L Pulse Rate 105 H 108 H 98 H Respiratory Rate 16 16 22 Blood Pressure 194/112 H Pulse Oximetry 92 L 94 L 01/29/18 19:29 01/29/18 21:30 01/29/18 21:31 Temperature 98 F Pulse Rate 99 H 100 H 102 H Respiratory Rate 20 22 24 Blood Pressure 189/99 H Pulse Oximetry 92 L 01/30/18 00:01 01/30/18 00:30 01/30/18 02:22 Temperature 98.8 F Pulse Rate 101 H 96 H 104 H Respiratory Rate 18 19 16 Blood Pressure 150/80 H Pulse Oximetry 99 01/30/18 03:30 01/30/18 04:30 01/30/18 04:31 Temperature 98.8 F Pulse Rate 99 H 111 H Respiratory Rate 18 18 16 Blood Pressure 180/99 H Pulse Oximetry 96 01/30/18 06:54 01/30/18 07:38 Temperature Pulse Rate 111 H 115 H Respiratory Rate 16 Blood Pressure Pulse Oximetry 93 L Intake & Output 01/29/18 01/30/18 01/30/18 18:59 06:59 18:59 Intake Total 1357.5 / 1357.5 1300 / 1300 Output Total 400 / 400 Balance 1357.5 / 1357.5 900 / 900 Weight 66 kg Intake: IV 1357.5 / 1357.5 1050 / 1050 NS Inj 1,000 ML @ 84 mls/hr IV. 1000 / 1000 1000 / 1000 CONT .[id number] [facility] Rx#:[id number] Zosyn 3.375 GM Premix 50 ML @ 100 / 100 50 / 50 100 mls/hr IV.SIG Q8H [facility] Rx#: [id number] Vancomycin Inj 750 MG In NS Inj 257.5 / 257.5 250 ML @ 250 mls/hr IV.SIG Q24H [facility] Rx#:[id number] Oral 250 / 250 Output: Urine 400 / 400 Other: Date of Last Bowel Movement 01/29/18 01/29/18 01/30/18 # Bowel Movements 1 0 1 - Constitutional mild distress - Routine Respiratory Exam Present: CTA bilaterally - Routine Cardiovascular Exam Present: RRR - Routine Abdominal Exam Present: soft - Routine Extremities Exam Comments: no pedal edema. - Routine Neurological Exam Present: alert - Urinary Catheter Management Indwelling Urethral Catheter Cath placed during this visit: yes, but has since been removed by the nurse Reason for continuing: Decision to DC catheter Insertion date: 01/27/18 Insertion time: 09:35 Removal date: 01/29/18 Removal time: 04:30 Results - Labs CBC & Chem 7: 01/29/18 03:43 01/29/18 03:43 Laboratory Results - last 24 hr 01/29/18 01/29/18 01/29/18 11:13 16:27 23:50 POC Glucose 168 H 110 138 H 01/30/18 05:21 POC Glucose 106 Microbiology 01/27/18 19:50 Sputum - Endotracheal Gram Stain - Final 01/27/18 19:50 Sputum - Endotracheal Sputum Culture - Final Light growth normal respiratory [place] 01/27/18 19:50 Catheterized Urine Urine Culture - Preliminary gram negative rods 01/27/18 10:05 Blood - Peripheral Aerobic Blood Culture - Preliminary No growth in 2 days 01/27/18 10:05 Blood - Peripheral Anaerobic Blood Culture - Preliminary No growth in 2 days 01/27/18 10:00 Blood - Peripheral Aerobic Blood Culture - Preliminary No growth in 2 days 01/27/18 10:00 Blood - Peripheral Anaerobic Blood Culture - Preliminary No growth in 2 days Assessment and Plan - Plan Acute hypercapnic hypoxemic respiratory failure-resolved Chronic obstructive pulmonary disease exacerbation. Currently on Solu-Medrol ; will start to taper mazariegos slowly.continue DuoNeb on Symbicort, Spiriva and continue with current IV antibiotic Monitor culture; strep pneumonia and legionella urinary antigens negative Acute kidney injury. Creatinine improving Monitor BUN and creatinine, and avoid all nephrotoxic drug Lactic acidemia improving Urinary tract infection Continue with Zosyn - Labile benign hypertension. Resume lisinopril 20 mg daily, Propanolol 10 mg daily and increase hydralazine to 75 mg 3 times daily continue to monitor and adjust the regimen as needed. History of breast cancer Chronic, outpatient management Consulted to treat and eval GI prophylaxis-with Protonix 40 mg daily. DVT prophylaxis with heparin subcutaneously and SCDs. Discharge Planning: [facility] - pending the clinical course. dc planning within the next 2-3 days.
[2018-01-30] MEDS: guaiFENesin 600 MG ER Tablet PO SCH (09:09)
[2018-01-30] MEDS: Propranolol 10 MG Tablet PO SCH (09:09)
[2018-01-30] MEDS: Senna/Docusate Sodium 8.6/50 MG Tablet PO SCH (09:09)
[2018-01-30] MEDS: Budesonide-Formoterol 160/4.5 MCG 6 GM Inhaler INH SCH (09:10)
[2018-01-30] MEDS: Lisinopril 20 MG Tablet PO SCH (09:12)
[2018-01-30] MEDS: hydrALAZINE 50 MG Tablet PO SCH ×3 (09:38→17:15)
[2018-01-30] MEDS: Heparin - SQ 10,000 UNITS/ML Vial SQ SCH (11:25)
[2018-01-30 13:09] LABS: Baso % (Auto) 0.1 % (0.0-2.0); Hematocrit 33.2 % (35.0-46.0); Lymph # (Auto) 0.7 th/mm3 (1.0-4.8); Lymph % (Auto) 4.1 % (9.0-44.0); Mean Corpuscular HGB Conc 33.2 % (32.0-36.0); Mean Corpuscular Hemoglobin 31.3 pg (27.0-34.0); Mean Corpuscular Volume 94.4 fL (80.0-100.0); Mean Platelet Volume 10.2 fL (7.0-11.0); Mono # (Auto) 0.5 th/mm3 (0.0-0.9); Mono % (Auto) 2.8 % (0.0-8.0); Neut # (Auto) 16.7 th/mm3 (1.8-7.7); Platelet Count 167 th/mm3 (150-450); Red Blood Count 3.52 mil/mm3 (4.00-5.30); Red Cell Distribution Width 13.7 % (11.6-17.2)
[2018-01-30 13:31] LABS: Alanine Aminotransferase 162 U/L (10-53); Albumin 3.4 g/dL (3.4-5.0); Anion Gap 13 meq/L (5-15); Aspartate Aminotransferase 223 U/L (15-37); Blood Urea Nitrogen 31 mg/dL (7-18); Calcium 8.4 mg/dL (8.5-10.1); Carbon Dioxide 18.8 meq/L (21.0-32.0); Chloride 112 meq/L (98-107); Glomerular Filtration Rate 39 mL/min (>89); Glucose,Random 114 mg/dL (74-106); Potassium 4.2 meq/L (3.5-5.1); Sodium 144 meq/L (136-145)
[2018-01-30 13:33] LABS: Alkaline Phosphatase 130 U/L (45-117); Total Protein 6.8 g/dL (6.4-8.2)
[2018-01-30] MEDS: Vancomycin Inj 750 MG in Sodium Chlor 0.9% Inj 250 ML IV.SIG SCH (17:15)
[2018-01-31] MEDS: guaiFENesin 600 MG ER Tablet PO SCH ×3 (00:04→21:32)
[2018-01-31] MEDS: Budesonide-Formoterol 160/4.5 MCG 6 GM Inhaler INH SCH ×3 (00:04→21:32)
[2018-01-31] MEDS: Senna/Docusate Sodium 8.6/50 MG Tablet PO SCH ×3 (00:05→21:32)
[2018-01-31] MEDS: Sod Chloride 0.9% Inj 1,000 ML IV.CONT SCH ×2 (00:08→12:03)
[2018-01-31] MEDS: MethylPREDNISolone Sod Succinate Inj 40 MG/ML Vial IV.PUSH SCH ×3 (00:43→21:31)
[2018-01-31] MEDS: Insulin NovoLOG Aspart Correctional Sugar Inj SQ SCH ×4 (00:43→17:06)
[2018-01-31] MEDS: Heparin - SQ 10,000 UNITS/ML Vial SQ SCH ×3 (00:43→23:57)
[2018-01-31] MEDS: Piperacil/Tazo 3.375 GM Premix 50 ML IV.SIG SCH ×3 (02:04→17:05)
[2018-01-31] MEDS: Chlorhexidine Gluconate 2% 1 Pack (2 Cloths) TOPICAL SCH (05:41)
[2018-01-31] MEDS: Propranolol 10 MG Tablet PO SCH (09:02)
[2018-01-31] MEDS: Lisinopril 20 MG Tablet PO SCH (09:02)
[2018-01-31] MEDS: hydrALAZINE 50 MG Tablet PO SCH ×3 (09:02→17:05)
--- NOTE | 2018-01-31 12:00 | P.PNIM ---
Subjective Interval history: f/u; respiratory failure with mild sob but looks and feels better today. denies pain with no fever. Physical Exam Vital signs: Vital Signs 01/30/18 16:00 01/30/18 16:28 01/30/18 19:58 Temperature 97.6 F Pulse Rate 95 H 98 H 88 Respiratory Rate 18 12 16 Blood Pressure 164/89 H Pulse Oximetry 98 01/30/18 20:00 01/31/18 00:00 01/31/18 00:10 Temperature 98.0 F 98.6 F Pulse Rate 95 H 96 H 89 Respiratory Rate 18 18 19 Blood Pressure 157/85 H 172/89 H Pulse Oximetry 98 99 99 01/31/18 03:58 01/31/18 04:00 01/31/18 04:02 Temperature 98.2 F Pulse Rate 106 H 92 H Respiratory Rate 16 18 20 Blood Pressure 138/99 H Pulse Oximetry 99 98 01/31/18 08:00 01/31/18 08:14 Temperature 98 F Pulse Rate 97 H 96 H Respiratory Rate 20 16 Blood Pressure 112/93 H Pulse Oximetry 100 99 Intake & Output 01/30/18 01/31/18 01/31/18 18:59 06:59 18:59 Intake Total 357.5 / 357.5 1050 / 1050 50 / 50 Balance 357.5 / 357.5 1050 / 1050 50 / 50 Weight 70.4 kg Intake: IV 357.5 / 357.5 1050 / 1050 50 / 50 NS Inj 1,000 ML @ 84 mls/hr IV. 1000 / 1000 CONT .[id number] [facility] Rx#:[id number] Zosyn 3.375 GM Premix 50 ML @ 100 / 100 50 / 50 50 / 50 100 mls/hr IV.SIG Q8H [facility] Rx#: [id number] Vancomycin Inj 750 MG In NS Inj 257.5 / 257.5 250 ML @ 250 mls/hr IV.SIG Q24H [facility] Rx#:[id number] Other: # Voids 1 Date of Last Bowel Movement 01/30/18 01/30/18 # Bowel Movements 1 1 - Constitutional no acute distress - Routine Respiratory Exam Present: CTA bilaterally (diminished air entry in bases.) - Routine Cardiovascular Exam Present: RRR - Routine Abdominal Exam Present: soft - Routine Neurological Exam Present: alert, oriented X3 - Urinary Catheter Management Indwelling Urethral Catheter Cath placed during this visit: yes, but has since been removed by the nurse Reason for continuing: Decision to DC catheter Insertion date: 01/27/18 Insertion time: 09:35 Removal date: 01/29/18 Removal time: 04:30 Results - Labs CBC & Chem 7: 01/30/18 11:30 01/30/18 11:30 Laboratory Results - last 24 hr 01/30/18 01/30/18 01/30/18 11:30 11:30 16:05 WBC 18.0 H RBC 3.52 L Hgb 11.0 L Hct 33.2 L MCV 94.4 MCH 31.3 MCHC 33.2 RDW 13.7 Plt Count 167 MPV 10.2 Neut % (Auto) 93.0 H Lymph % (Auto) 4.1 L [place] % (Auto) 2.8 Eos % (Auto) 0.0 Baso % (Auto) 0.1 Neut # (Auto) 16.7 H Lymph # (Auto) 0.7 L [place] # (Auto) 0.5 Eos # (Auto) 0.0 Baso # (Auto) 0.0 WBC Differential . Differential Comment Auto diff final Sodium 144 Potassium 4.2 Chloride 112 H Carbon Dioxide 18.8 L Anion Gap 13 BUN 31 H Creatinine 1.33 H Estimated GFR 39 L POC Glucose 162 H Random Glucose 114 H Calcium 8.4 L Total Bilirubin 0.7 AST 223 H ALT 162 H Alkaline Phosphatase 130 H Total Protein 6.8 Albumin 3.4 01/30/18 01/31/18 01/31/18 20:32 00:41 07:12 WBC RBC Hgb Hct MCV MCH MCHC RDW Plt Count MPV Neut % (Auto) Lymph % (Auto) [place] % (Auto) Eos % (Auto) Baso % (Auto) Neut # (Auto) Lymph # (Auto) [place] # (Auto) Eos # (Auto) Baso # (Auto) WBC Differential Differential Comment Sodium Potassium Chloride Carbon Dioxide Anion Gap BUN Creatinine Estimated GFR POC Glucose 137 H 132 H 140 H Random Glucose Calcium Total Bilirubin AST ALT Alkaline Phosphatase Total Protein Albumin 01/31/18 11:31 WBC RBC Hgb Hct MCV MCH MCHC RDW Plt Count MPV Neut % (Auto) Lymph % (Auto) [place] % (Auto) Eos % (Auto) Baso % (Auto) Neut # (Auto) Lymph # (Auto) [place] # (Auto) Eos # (Auto) Baso # (Auto) WBC Differential Differential Comment Sodium Potassium Chloride Carbon Dioxide Anion Gap BUN Creatinine Estimated GFR POC Glucose 157 H Random Glucose Calcium Total Bilirubin AST ALT Alkaline Phosphatase Total Protein Albumin Microbiology 01/27/18 10:05 Blood - Peripheral Aerobic Blood Culture - Preliminary No growth in 4 days 01/27/18 10:05 Blood - Peripheral Anaerobic Blood Culture - Preliminary No growth in 4 days 01/27/18 10:00 Blood - Peripheral Aerobic Blood Culture - Preliminary No growth in 4 days 01/27/18 10:00 Blood - Peripheral Anaerobic Blood Culture - Preliminary No growth in 4 days 01/27/18 19:50 Catheterized Urine Urine Culture - Final Klebsiella pneumoniae Assessment and Plan - Plan Acute hypercapnic hypoxemic respiratory failure-resolved Chronic obstructive pulmonary disease exacerbation- improving. Currently on Solu-Medrol ; will start to taper mazariegos slowly.continue DuoNeb on Symbicort, Spiriva and continue with current IV antibiotic Monitor culture; strep pneumonia and legionella urinary antigens negative Acute kidney injury. Creatinine improving Monitor BUN and creatinine, and avoid all nephrotoxic drug Lactic acidemia improving Urinary tract infection Continue with Zosyn - Labile benign hypertension. Resumed lisinopril 20 mg daily, Propanolol 10 mg daily and increased hydralazine to 75 mg 3 times daily continue to monitor and adjust the regimen as needed. History of breast cancer Chronic, outpatient management Consulted to treat and eval GI prophylaxis-with Protonix 40 mg daily. DVT prophylaxis with heparin subcutaneously and SCDs. Discharge Planning: dc to SNF tomorrow if stable.
[2018-01-31] MEDS: Vancomycin Inj 750 MG in Sodium Chlor 0.9% Inj 250 ML IV.SIG SCH (15:03)
[2018-02-01] MEDS: Insulin NovoLOG Aspart Correctional Sugar Inj SQ SCH ×5 (00:05→23:58)
[2018-02-01] MEDS: Sod Chloride 0.9% Inj 1,000 ML IV.CONT SCH ×3 (00:09→23:53)
[2018-02-01] MEDS: Piperacil/Tazo 3.375 GM Premix 50 ML IV.SIG SCH ×3 (02:27→17:29)
[2018-02-01] MEDS: Chlorhexidine Gluconate 2% 1 Pack (2 Cloths) TOPICAL SCH (04:49)
[2018-02-01 08:21] LABS: Baso % (Auto) 0.2 % (0.0-2.0); Eos % (Auto) 0.1 % (0.0-4.0); Hematocrit 31.1 % (35.0-46.0); Hemoglobin 10.3 gm/dL (11.6-15.3); Lymph # (Auto) 0.6 th/mm3 (1.0-4.8); Lymph % (Auto) 5.5 % (9.0-44.0); Mean Corpuscular HGB Conc 33.1 % (32.0-36.0); Mean Corpuscular Hemoglobin 31.1 pg (27.0-34.0); Mean Corpuscular Volume 94.1 fL (80.0-100.0); Mean Platelet Volume 9.7 fL (7.0-11.0); Mono # (Auto) 0.5 th/mm3 (0.0-0.9); Mono % (Auto) 4.8 % (0.0-8.0); Neut # (Auto) 9.8 th/mm3 (1.8-7.7); Neut % (Auto) 89.4 % (16.0-70.0); Platelet Count 186 th/mm3 (150-450); Red Cell Distribution Width 13.7 % (11.6-17.2)
[2018-02-01] MEDS: Lisinopril 20 MG Tablet PO SCH (08:37)
[2018-02-01] MEDS: MethylPREDNISolone Sod Succinate Inj 40 MG/ML Vial IV.PUSH SCH ×2 (08:38→22:02)
[2018-02-01] MEDS: Propranolol 10 MG Tablet PO SCH (08:38)
[2018-02-01] MEDS: hydrALAZINE 50 MG Tablet PO SCH ×3 (08:38→17:28)
[2018-02-01] MEDS: guaiFENesin 600 MG ER Tablet PO SCH ×2 (08:38→22:02)
[2018-02-01] MEDS: Budesonide-Formoterol 160/4.5 MCG 6 GM Inhaler INH SCH ×2 (08:39→22:03)
[2018-02-01] MEDS: Senna/Docusate Sodium 8.6/50 MG Tablet PO SCH ×2 (08:39→22:02)
[2018-02-01 09:40] LABS: Lymphocytes 5 % (9-44); Monocytes 3 % (0-8); Myelocytes 1 % (0-0)
[2018-02-01 09:42] LABS: Platelet Estimate Normal (Normal); Platelet Morphology Normal (Normal); RBC Morphology Normal (Normal)
--- NOTE | 2018-02-01 10:27 | P.PNIM ---
Subjective Interval history: f/u; respiratory failure. in no acute distress. nut complaining of chest pain. no nausea, emesis, dizziness or diaphoresis. afebrile. d/w the RN. Physical Exam Vital signs: Vital Signs 01/31/18 12:00 01/31/18 12:38 01/31/18 13:08 Temperature 97.6 F Pulse Rate 88 87 95 H Respiratory Rate 20 16 Blood Pressure 166/91 H Pulse Oximetry 99 01/31/18 14:44 01/31/18 16:00 01/31/18 20:00 Temperature 97.8 F 97.6 F Pulse Rate 93 H 97 H Respiratory Rate 16 20 18 Blood Pressure 163/89 H 164/91 H Pulse Oximetry 97 98 02/01/18 00:00 02/01/18 04:00 02/01/18 08:00 Temperature 98.4 F 97.6 F 97.6 F Pulse Rate 98 H 86 95 H Respiratory Rate 18 18 18 Blood Pressure 167/98 H 166/92 H 168/97 H Pulse Oximetry 96 98 100 02/01/18 08:51 Temperature Pulse Rate 92 H Respiratory Rate 16 Blood Pressure Pulse Oximetry 98 Intake & Output 01/31/18 02/01/18 02/01/18 18:59 06:59 18:59 Intake Total 1357.5 / 1357.5 1050 / 1050 100 / 100 Balance 1357.5 / 1357.5 1050 / 1050 100 / 100 Weight 72 kg Intake: IV 1357.5 / 1357.5 1050 / 1050 100 / 100 NS Inj 1,000 ML @ 84 mls/hr IV. 1000 / 1000 1000 / 1000 100 / 100 CONT .[id number] [facility] Rx#:[id number] Zosyn 3.375 GM Premix 50 ML @ 100 / 100 50 / 50 100 mls/hr IV.SIG Q8H [facility] Rx#: [id number] Vancomycin Inj 750 MG In NS Inj 257.5 / 257.5 250 ML @ 250 mls/hr IV.SIG Q24H [facility] Rx#:[id number] Other: # Voids 1 Date of Last Bowel Movement 01/30/18 01/30/18 - Constitutional mild distress - Routine Respiratory Exam Present: diminished air movement (in bases.) - Routine Cardiovascular Exam Present: RRR - Routine Abdominal Exam Present: soft - Routine Extremities Exam Comments: mild bilateral pedal edema. - Routine Neurological Exam Present: alert, oriented X3 - Urinary Catheter Management Indwelling Urethral Catheter Cath placed during this visit: yes, but has since been removed by the nurse Reason for continuing: Decision to DC catheter Insertion date: 01/27/18 Insertion time: 09:35 Removal date: 01/29/18 Removal time: 04:30 Results - Labs CBC & Chem 7: 02/01/18 07:27 02/01/18 07:27 Laboratory Results - last 24 hr 01/31/18 01/31/18 01/31/18 11:31 16:46 23:59 WBC RBC Hgb Hct MCV MCH MCHC RDW Plt Count MPV Prelim Diff (Auto) Neut % (Auto) Lymph % (Auto) [place] % (Auto) Eos % (Auto) Baso % (Auto) Neut # (Auto) Lymph # (Auto) [place] # (Auto) Eos # (Auto) Baso # (Auto) WBC Differential Seg Neuts % (Manual) Band Neuts % (Manual) Lymphocytes % (Manual) Monocytes % (Manual) Myelocytes % (Man) Abs Neuts (Manual) Differential Comment Platelet Estimate Platelet Morphology RBC Morphology Creatinine Estimated GFR POC Glucose 157 H 156 H 158 H 02/01/18 02/01/18 02/01/18 06:11 07:27 07:27 WBC 11.0 RBC 3.30 L Hgb 10.3 L Hct 31.1 L MCV 94.1 MCH 31.1 MCHC 33.1 RDW 13.7 Plt Count 186 MPV 9.7 Prelim Diff (Auto) Slide review pending Neut % (Auto) 89.4 H Lymph % (Auto) 5.5 L [place] % (Auto) 4.8 Eos % (Auto) 0.1 Baso % (Auto) 0.2 Neut # (Auto) 9.8 H Lymph # (Auto) 0.6 L [place] # (Auto) 0.5 Eos # (Auto) 0.0 Baso # (Auto) 0.0 WBC Differential Manual diff final Seg Neuts % (Manual) 88 H Band Neuts % (Manual) 3 Lymphocytes % (Manual) 5 L Monocytes % (Manual) 3 Myelocytes % (Man) 1 H Abs Neuts (Manual) 10.1 H Differential Comment . Platelet Estimate Normal Platelet Morphology Normal RBC Morphology Normal Creatinine 1.57 H Estimated GFR 33 L POC Glucose 153 H Microbiology 01/27/18 10:05 Blood - Peripheral Aerobic Blood Culture - Preliminary No growth in 4 days 01/27/18 10:05 Blood - Peripheral Anaerobic Blood Culture - Preliminary No growth in 4 days 01/27/18 10:00 Blood - Peripheral Aerobic Blood Culture - Preliminary No growth in 4 days 01/27/18 10:00 Blood - Peripheral Anaerobic Blood Culture - Preliminary No growth in 4 days 01/27/18 19:50 Catheterized Urine Urine Culture - Final Klebsiella pneumoniae Assessment and Plan - Plan Acute hypercapnic hypoxemic respiratory failure-resolved Chronic obstructive pulmonary disease exacerbation- sepsis due to pneumonia Currently on Solu-Medrol ; will start to taper dose slowly.continue DuoNeb on Symbicort, Spiriva and deescalate the antibiotic regimen today; will stop Vancomycin. Monitor culture; strep pneumonia and legionella urinary antigens negative. chest pain- will check EKG and serial troponin. continue with pain control. Acute kidney injury. Creatinine improving Monitor BUN and creatinine, and avoid all nephrotoxic drug Urinary tract infection Continue with Zosyn - Labile benign hypertension. Resumed lisinopril 20 mg daily, Propanolol 10 mg daily and increased hydralazine to 75 mg 3 times daily continue to monitor and adjust the regimen as needed. History of breast cancer Chronic, outpatient management PT Consulted to treat and eval GI prophylaxis-with Protonix 40 mg daily. DVT prophylaxis with heparin subcutaneously and SCDs. Discharge Planning: not ready for discharge today. dc planning to SNF.
[2018-02-01] MEDS: Morphine Sulfate Inj 2 MG/ML Vial IV.PUSH PRN (11:10)
[2018-02-01] MEDS: Heparin - SQ 10,000 UNITS/ML Vial SQ SCH ×2 (12:10→23:53)
--- NOTE | 2018-02-01 15:24 | P.CONCA ---
History of Present Illness Service: Cardiology Consult date: 02/01/18 Reason for Consult: Non-ST elevation myocardial infarction Primary Care Provider: UNKNOWN Chief Complaint: Chest pain History of Present Illness: This is a 67-year-old female she has past medical history of breast cancer, hypertension, arthritis, chronic obstructive pulmonary disease, congestive heart failure, dementia who resides currently in a detention. She presented to the emergency department at [place] in January 27, 2018 with respiratory distress. She was noted at that time to have oxygen saturation of 70% around arrival to the emergency department and was in distress. Patient was subsequently intubated and placed on full mechanical ventilation. Patient had fever with elevated temperature chest x-ray revealed pneumonia. Patient was treated for sepsis with antibiotic therapy and eventually extubated. She was otherwise doing well until this morning. There is a possibility that she was going to be discharged today, but subsequently developed substernal chest pain. The pain lasted about 15 minutes subsided on its own after administration of codeine. She has no prior history of known coronary disease. She does say she has "stents in her legs" but no coronary stents. Electrocardiogram shows T- wave inversions to the anterior and anterolateral precordial leads, but the only comparison electrocardiogram is from September of last year which did have upright T waves at that time. We are consulted for further recommendations. Her initial troponin was 0.02 but did bump to 0.13 and is now back down to 0.06. Patient is chest pain-free. [facility] - History History Provided By: Medical Record, Metal Worker / EMT - Medical History Medical History: Medical History (Last Reviewed 01/31/18 @ 09:12 by Francisco Avilez) Cerebral atherosclerosis Dementia Dyspnea HTN (hypertension) TIA (transient ischemic attack) Arthritis Breast CA CHF (congestive heart failure) COPD (chronic obstructive pulmonary disease) FH: mastectomy - Tobacco History Smoking Status: Unknown if ever smoked Tobacco Type: Cigarettes - Alcohol History How Often Do You Have a Drink Containing Alcohol: Unable to Obtain - Substance Use History Substance History: Unable to Obtain - Travel History Recent Travel in the [place] Within the Last 8 Weeks: No Recent Travel Out of the Country Within the Last 8 Weeks: No - Immunization History Tetanus Immunization: Unable to Assess Hx Influenza Vaccine This Season: Unable to Assess Medications and Allergies Active Medications: Active Medications Al Hydroxide/Mg Hydroxide (Milk Of Magnesia Liq) 30 ml PO Q12H PRN PRN Reason: Mild Constipation Albuterol (Duoneb Neb (Prn)) 1 ampul NEB Q2HR NEB PRN PRN Reason: DYSPNEA Last Admin: 02/01/18 08:50 Dose: 1 ampul Bisacodyl (Dulcolax Supp) 10 mg RECTAL DAILY PRN PRN Reason: SEVERE CONSITIPATION Budesonide/Formoterol Fumarate (Symbicort 160/4.5 Mcg Inh) 2 puff INH BID [facility] Last Admin: 02/01/18 08:39 Dose: 2 puff Chlorhexidine Gluconate (Chlorhexidine 2% Cloth) 3 pack TOPICAL DAILY@0400 PRN PRN Reason: Extra cloth needed Stop: 02/02/18 03:59 Chlorhexidine Gluconate (Chlorhexidine 2% Cloth) 3 pack TOPICAL DAILY@0400 [facility] Stop: 02/02/18 03:59 Last Admin: 02/01/18 04:49 Dose: Not Given Clopidogrel Bisulfate (Plavix) 75 mg PO DAILY [facility] Last Admin: 02/01/18 08:37 Dose: 75 mg Dextrose (D50w Vial) 50 ml IV.PUSH UNSCH PRN PRN Reason: PER HYPOGLYCEMIA PROTOCOL Enalaprilat (Vasotec Inj) 2.5 mg IV.PUSH Q6H PRN PRN Reason: SBP > 160 Last Admin: 02/01/18 05:08 Dose: 2.5 mg Glucagon (Glucagon Inj) 1 mg OTHER PRN PRN PRN Reason: for Hypoglycemia Protocol Guaifenesin (Mucinex Er) 600 mg PO BID [facility] Last Admin: 02/01/18 08:38 Dose: 600 mg Heparin Sodium (Porcine) (Heparin Inj) 5,000 units SQ Q12H [facility] Last Admin: 02/01/18 12:10 Dose: 5,000 units Hydralazine HCl (Apresoline Inj) 20 mg IV.PUSH Q4H PRN PRN Reason: SBP>160, DBP>90 Hydralazine HCl (Apresoline) 75 mg PO TID [facility] Last Admin: 02/01/18 12:11 Dose: 75 mg Sodium Chloride (Ns Inj) 1,000 mls @ 0 mls/hr IV.SIG BOLUS [facility] Last Infusion: 01/28/18 05:57 Dose: Infused Sodium Chloride (Ns Inj) 1,000 mls @ 84 mls/hr IV.CONT .[id number] [facility] Last Admin: 02/01/18 12:12 Dose: Not Given Piperacillin/Tazobactam/Dextrose (Zosyn 3.375 Gm Premix) 50 mls @ 100 mls/hr IV.SIG Q8H [facility] Last Infusion: 02/01/18 10:50 Dose: Infused Insulin Aspart (Novolog Insulin Correctional Sugar Inj) 0 unit SQ Q6HR [facility]; Protocol Last Admin: 02/01/18 11:39 Dose: Not Given Labetalol HCl (Trandate Inj) 10 mg IV.PUSH Q4H PRN PRN Reason: SBP>160, DBP>90 Last Admin: 01/29/18 06:20 Dose: 10 mg Lactulose (Lactulose Liq) 30 ml PO DAILY PRN PRN Reason: SEVERE CONSITIPATION Lisinopril (Prinivil) 20 mg PO DAILY [facility] Last Admin: 02/01/18 08:37 Dose: 20 mg Methylprednisolone Sodium Succinate (Solumedrol Inj) 40 mg IV.PUSH Q12H [facility] Last Admin: 02/01/18 08:38 Dose: 40 mg Miscellaneous Information ([facility] Ordered Lab Info) 0 each OTHER ONCE [facility] Morphine Sulfate (Morphine Inj) 2 mg IV.PUSH Q4H PRN PRN Reason: chest pain Last Admin: 02/01/18 11:10 Dose: 2 mg Pantoprazole Sodium (Protonix) 40 mg PO DAILY [facility] Last Admin: 02/01/18 08:37 Dose: 40 mg Propranolol HCl (Inderal) 10 mg PO DAILY [facility] Last Admin: 02/01/18 08:38 Dose: 10 mg Senna/Docusate Sodium (Rola-Colace) 1 tab PO BID [facility] Last Admin: 02/01/18 08:39 Dose: Not Given Sennosides (Senokot) 17.2 mg PO Q12H PRN PRN Reason: Moderate Constipation Sodium Chloride (Ns Flush) 2 ml IV.FLUSH UNSCH PRN PRN Reason: FLUSH AFTER USING IV ACCESS Allergies Allergy/AdvReac Type Severity Reaction Status Date / Time aripiprazole Allergy Severe Chest Pain Unverified 10/16/17 19:27 lurasidone Allergy Unknown UNKNOWN Unverified 10/16/17 19:27 Home Medications Medication Instructions Recorded Confirmed Type cholestyramine (with sugar) 4 g PO BID 01/27/18 01/27/18 History clopidogrel 75 mg PO DAILY 01/27/18 01/27/18 History fentanyl 1 patch TRANSDERMAL Q72H 01/27/18 01/27/18 History lisinopril 20 mg PO DAILY 01/27/18 01/27/18 History loperamide 2 mg PO BID 01/27/18 01/27/18 History melatonin 3 mg PO HS PRN 01/27/18 01/27/18 History meloxicam 15 mg PO DAILY 01/27/18 01/27/18 History omeprazole 20 mg PO DAILY 01/27/18 01/27/18 History paroxetine HCl 30 mg PO DAILY 01/27/18 01/27/18 History propranolol 10 mg PO DAILY 01/27/18 01/27/18 History Exam Vital signs: Vital Signs 01/31/18 16:00 01/31/18 20:00 02/01/18 00:00 Temperature 97.8 F 97.6 F 98.4 F Pulse Rate 93 H 97 H 98 H Respiratory Rate 20 18 18 Blood Pressure 163/89 H 164/91 H 167/98 H Pulse Oximetry 97 98 96 02/01/18 04:00 02/01/18 08:00 02/01/18 08:51 Temperature 97.6 F 97.6 F Pulse Rate 86 95 H 92 H Respiratory Rate 18 18 16 Blood Pressure 166/92 H 168/97 H Pulse Oximetry 98 100 98 02/01/18 10:00 02/01/18 12:00 02/01/18 13:29 Temperature 97.4 F L 97.5 F L Pulse Rate 89 85 85 Respiratory Rate 20 18 Blood Pressure 162/91 H 160/90 H Pulse Oximetry 100 97 Intake & Output 01/31/18 02/01/18 02/01/18 18:59 06:59 18:59 Intake Total 1357.5 / 1357.5 1050 / 1050 150 / 150 Balance 1357.5 / 1357.5 1050 / 1050 150 / 150 Weight 72 kg Intake: IV 1357.5 / 1357.5 1050 / 1050 150 / 150 NS Inj 1,000 ML @ 84 mls/hr IV. 1000 / 1000 1000 / 1000 100 / 100 CONT .[id number] [facility] Rx#:[id number] Zosyn 3.375 GM Premix 50 ML @ 100 / 100 50 / 50 50 / 50 100 mls/hr IV.SIG Q8H [facility] Rx#: [id number] Vancomycin Inj 750 MG In NS Inj 257.5 / 257.5 250 ML @ 250 mls/hr IV.SIG Q24H [facility] Rx#:[id number] Other: # Voids 1 Date of Last Bowel Movement 01/30/18 01/30/18 - Constitutional no acute distress - Routine HEENT Exam Head: Present: normocephalic, atraumatic Eye: Present: EOMI, PERRL ENT: Present: mucous membranes moist - Routine Neck Exam Absent: JVD - Routine Respiratory Exam Present: decreased breath sounds, CTA bilaterally, rhonchi, wheezes - Routine Cardiovascular Exam Present: RRR. Absent: murmur - Routine Abdominal Exam Present: soft - Routine Extremities Exam Absent: cyanosis, clubbing, edema - Routine Neurological Exam Present: oriented X3, CN II-XII intact, sensory deficit, motor deficit Results 02/01/18 07:27 02/01/18 07:27 Cardiac Enzymes 02/01/18 02/01/18 Range/Units 11:01 14:00 Troponin I 0.13 H D 0.04 (0.02-0.05) ng/mL CBC 02/01/18 Range/Units 07:27 WBC 11.0 (4.0-11.0) th/mm3 RBC 3.30 L (4.00-5.30) mil/mm3 Hgb 10.3 L (11.6-15.3) gm/dL Hct 31.1 L (35.0-46.0) % Plt Count 186 (150-450) th/mm3 Neut # (Auto) 9.8 H (1.8-7.7) th/mm3 Lymph # (Auto) 0.6 L (1.0-4.8) th/mm3 [place] # (Auto) 0.5 (0.0-0.9) th/mm3 Eos # (Auto) 0.0 (0.0-0.4) th/mm3 Baso # (Auto) 0.0 (0.0-0.2) th/mm3 Comprehensive Metabolic Panel 02/01/18 Range/Units 07:27 Creatinine 1.57 H (0.50-1.00) mg/dL Intake and Output 09/12/1202/01/18 02/01/18 06:59 14:59 22:59 Intake Total 1050 / 1050 150 / 150 Balance 1050 / 1050 150 / 150 Intake: IV 1050 / 1050 150 / 150 NS Inj 1,000 ML @ 84 mls/hr IV. 1000 / 1000 100 / 100 CONT .[id number] [facility] Rx#:[id number] Zosyn 3.375 GM Premix 50 ML @ 50 / 50 50 / 50 100 mls/hr IV.SIG Q8H [facility] Rx#: [id number] Other: # Voids 1 Weight 72 kg EKG interpretations - Dysrhythmias Sinus rhythms and dysrhythmias: sinus rhythm - Blocks, axis, hypertrophy, ST abn Repolarization changes or abnormalities: ST or T wave suggestive of ischemia Assessment and Plan - Assessment (1) NSTEMI (non-ST elevated myocardial infarction) Code(s): I21.4 - Non-ST elevation (NSTEMI) myocardial infarction Status: Acute (2) CHF (congestive heart failure) Code(s): I50.9 - Heart failure, unspecified Status: Acute (3) Chest pain Code(s): R07.9 - Chest pain, unspecified Status: Acute - Plan I discussed the case with the hospitalist. Patient has no prior history of known heart disease, but did develop chest pain earlier today. Her symptoms sounded somewhat atypical and relieved with codeine. Has no prior history of exertional angina. She does have reported atherosclerotic clinical disease based on prior peripheral arterial disease with stents in her legs. She was also having significant respiratory distress earlier in the hospitalization still has end expiratory wheeze which may have been a contributing factor to her symptoms. She did have a slight elevation in troponin to 0.13, but this may have also been secondary to a demand mediated event. Her most concerning feature is the new T-wave inversions to the anterior and anterolateral precordial leads. There is no electrocardiogram for comparison upon arrival. Her most recent electrocardiogram prior to this admission was back in September of last year at which time she had normal upright T waves. We will follow her troponin trend. She is not in a great condition at this time to undergo cardiac catheterization as she still has end expiratory wheeze. We will plan on performing a pharmacologically induced myocardial perfusion imaging study tomorrow morning to look for inducible ischemia. If there is mild or no ischemia, will plan for medical management approach. If there is moderate ischemia or worse, then she will need to undergo cardiac catheterization, which we will plan on performing Sunday. No caffeine after midnight.
[2018-02-01] MEDS ORDERED: Pharmacy Ordered Lab Info OTHER SCH (15:45)
[2018-02-02] MEDS: Piperacil/Tazo 3.375 GM Premix 50 ML IV.SIG SCH ×3 (01:01→17:39)
[2018-02-02] MEDS: Morphine Sulfate Inj 2 MG/ML Vial IV.PUSH PRN ×4 (04:25→22:33)
[2018-02-02] MEDS: Insulin NovoLOG Aspart Correctional Sugar Inj SQ SCH ×3 (05:50→17:41)
--- NOTE | 2018-02-02 08:17 | P.PNCA ---
Subjective Interval history: she reports feeling anterior chest pain again this morning lasting a few minutes , alleviated with morphine. Breathing improved. Using 3L O2 via nasal cannula. Continues to wheeze but improving. lexiscan planned for this morning. Physical Exam Vital signs: Vital Signs 02/01/18 08:51 02/01/18 10:00 02/01/18 12:00 Temperature 97.4 F L 97.5 F L Pulse Rate 92 H 89 85 Respiratory Rate 16 20 18 Blood Pressure 162/91 H 160/90 H Pulse Oximetry 98 100 97 02/01/18 13:29 02/01/18 16:00 02/01/18 17:54 Temperature 98.0 F Pulse Rate 85 81 Respiratory Rate 18 Blood Pressure 171/88 H Pulse Oximetry 99 99 02/01/18 20:00 02/02/18 00:00 02/02/18 01:00 Temperature 97.8 F 97.6 F Pulse Rate 83 83 86 Respiratory Rate 18 18 Blood Pressure 138/67 172/90 H 163/94 H Pulse Oximetry 100 97 02/02/18 02:07 02/02/18 03:12 02/02/18 04:00 Temperature 98.2 F Pulse Rate 82 86 Respiratory Rate 18 18 Blood Pressure 152/84 H 147/71 H Pulse Oximetry 99 Intake & Output 02/01/18 02/02/18 02/02/18 18:59 06:59 18:59 Intake Total 680 / 680 50 / 50 Balance 680 / 680 50 / 50 Weight 72.2 kg Intake: IV 200 / 200 50 / 50 NS Inj 1,000 ML @ 84 mls/hr IV. 100 / 100 CONT .[id number] [facility] Rx#:[id number] Zosyn 3.375 GM Premix 50 ML @ 100 / 100 50 / 50 100 mls/hr IV.SIG Q8H [facility] Rx#: [id number] Oral 480 / 480 Other: # Voids 2 1 Date of Last Bowel Movement 02/01/18 Narrative: GENERAL: SKIN: Warm and dry. HEAD: Normocephalic. EYES: No scleral icterus. No injection or drainage. NECK: Supple, trachea midline. No JVD or lymphadenopathy. CARDIOVASCULAR: Regular rate and rhythm without murmurs, gallops, or rubs. RESPIRATORY: Diminished breath sounds to bilateral bases, mild expiratory wheeze. No accessory muscle use. GASTROINTESTINAL: Abdomen soft, non-tender, nondistended. MUSCULOSKELETAL: No cyanosis, or edema. - Urinary Catheter Management Indwelling Urethral Catheter Cath placed during this visit: yes, but has since been removed by the nurse Reason for continuing: Decision to DC catheter Insertion date: 01/27/18 Insertion time: 09:35 Removal date: 01/29/18 Removal time: 04:30 Assessment and Plan - Assessment (1) NSTEMI (non-ST elevated myocardial infarction) Code(s): I21.4 - Non-ST elevation (NSTEMI) myocardial infarction Status: Acute (2) CHF (congestive heart failure) Code(s): I50.9 - Heart failure, unspecified Status: Acute (3) Chest pain Code(s): R07.9 - Chest pain, unspecified Status: Acute - Plan 68 yo F with COPD, breast ca, HTN, PAD, CHF and dementia who presented earlier this week with respiratory distress requiring intubation and ventilator support. She was diagnosed with pneumonia and sepsis with recent extubation. chest pain- yesterday she developed chest pain and again this morning. No reported history of CAD, but does have reported PAD with stents in her legs. She did have a slight elevation in troponin to 0.13, but this may have also been secondary to a demand mediated event. Her most concerning feature is the new T-wave inversions to the anterior and anterolateral precordial leads. There is no electrocardiogram for comparison upon arrival. Her most recent electrocardiogram prior to this admission was back in September of last year at which time she had normal upright T waves. We will follow her troponin trend. She is not in a great condition at this time to undergo cardiac catheterization as she still has end expiratory wheeze. We will plan on performing a pharmacologically induced myocardial perfusion imaging study this morning to look for inducible ischemia. If there is mild or no ischemia, will plan for medical management approach. If there is moderate ischemia or worse, then she will need to undergo cardiac catheterization, which we will plan on performing Sunday. - Attending Attestation chrissie today
--- NOTE | 2018-02-02 09:05 | P.PNIM ---
Subjective Interval history: f/u; respiratory failure/ chest pain looks and feels better today. has on and off mild chest pain. no other complaints. Physical Exam Vital signs: Vital Signs 02/01/18 10:00 02/01/18 12:00 02/01/18 13:29 Temperature 97.4 F L 97.5 F L Pulse Rate 89 85 85 Respiratory Rate 20 18 Blood Pressure 162/91 H 160/90 H Pulse Oximetry 100 97 02/01/18 16:00 02/01/18 17:54 02/01/18 20:00 Temperature 98.0 F 97.8 F Pulse Rate 81 83 Respiratory Rate 18 18 Blood Pressure 171/88 H 138/67 Pulse Oximetry 99 99 100 02/02/18 00:00 02/02/18 01:00 02/02/18 02:07 Temperature 97.6 F Pulse Rate 83 86 82 Respiratory Rate 18 Blood Pressure 172/90 H 163/94 H 152/84 H Pulse Oximetry 97 02/02/18 03:12 02/02/18 04:00 02/02/18 08:00 Temperature 98.2 F 97.7 F Pulse Rate 86 88 Respiratory Rate 18 18 18 Blood Pressure 147/71 H 158/81 H Pulse Oximetry 99 96 Intake & Output 02/01/18 02/02/18 02/02/18 18:59 06:59 18:59 Intake Total 680 / 680 50 / 50 Balance 680 / 680 50 / 50 Weight 72.2 kg Intake: IV 200 / 200 50 / 50 NS Inj 1,000 ML @ 84 mls/hr IV. 100 / 100 CONT .[id number] [facility] Rx#:[id number] Zosyn 3.375 GM Premix 50 ML @ 100 / 100 50 / 50 100 mls/hr IV.SIG Q8H [facility] Rx#: [id number] Oral 480 / 480 Other: # Voids 2 1 Date of Last Bowel Movement 02/01/18 - Constitutional no acute distress - Routine Respiratory Exam Present: CTA bilaterally - Routine Cardiovascular Exam Present: RRR - Routine Abdominal Exam Present: soft - Routine Extremities Exam Comments: no pedal edema. - Routine Neurological Exam Present: alert, oriented X3 - Urinary Catheter Management Indwelling Urethral Catheter Cath placed during this visit: yes, but has since been removed by the nurse Reason for continuing: Decision to DC catheter Insertion date: 01/27/18 Insertion time: 09:35 Removal date: 01/29/18 Removal time: 04:30 Results - Labs CBC & Chem 7: 02/01/18 07:27 02/01/18 07:27 Laboratory Results - last 24 hr 02/01/18 02/01/18 02/01/18 07:27 11:01 11:30 WBC Differential Manual diff final Seg Neuts % (Manual) 88 H Band Neuts % (Manual) 3 Lymphocytes % (Manual) 5 L Monocytes % (Manual) 3 Myelocytes % (Man) 1 H Abs Neuts (Manual) 10.1 H Platelet Estimate Normal Platelet Morphology Normal RBC Morphology Normal POC Glucose 141 H Troponin I 0.13 H D 02/01/18 02/01/18 02/01/18 14:00 17:30 17:33 WBC Differential Seg Neuts % (Manual) Band Neuts % (Manual) Lymphocytes % (Manual) Monocytes % (Manual) Myelocytes % (Man) Abs Neuts (Manual) Platelet Estimate Platelet Morphology RBC Morphology POC Glucose 132 H Troponin I 0.04 0.10 H 02/01/18 02/02/18 23:56 05:46 WBC Differential Seg Neuts % (Manual) Band Neuts % (Manual) Lymphocytes % (Manual) Monocytes % (Manual) Myelocytes % (Man) Abs Neuts (Manual) Platelet Estimate Platelet Morphology RBC Morphology POC Glucose 157 H 167 H Troponin I Microbiology 01/27/18 10:05 Blood - Peripheral Aerobic Blood Culture - Final No growth in 5 days 01/27/18 10:05 Blood - Peripheral Anaerobic Blood Culture - Final No growth in 5 days 01/27/18 10:00 Blood - Peripheral Aerobic Blood Culture - Final No growth in 5 days 01/27/18 10:00 Blood - Peripheral Anaerobic Blood Culture - Final No growth in 5 days Assessment and Plan - Plan Acute hypercapnic hypoxemic respiratory failure-resolved Chronic obstructive pulmonary disease exacerbation- sepsis due to pneumonia Currently on Solu-Medrol ; will stop IV steroid and change to prednisone from tomorrow.continue DuoNeb on Symbicort, Spiriva and deescalate the antibiotic regimen today; stopped Vancomycin. Monitor culture; strep pneumonia and legionella urinary antigens negative. chest pain with mildly elevated troponin- cardiology consult appreciated; awaiting stress test today. Acute kidney injury. Creatinine improving Monitor BUN and creatinine, and avoid all nephrotoxic drug Urinary tract infection Continue with Zosyn - Labile benign hypertension. Resumed lisinopril 20 mg daily, Propanolol 10 mg daily and increased hydralazine to 75 mg 3 times daily continue to monitor and adjust the regimen as needed. History of breast cancer Chronic, outpatient management PT Consulted to treat and eval GI prophylaxis-with Protonix 40 mg daily. DVT prophylaxis with heparin subcutaneously and SCDs. Discharge Planning: awaiting stress test and cardiology recommendations. dc planning to SNF.
[2018-02-02] MEDS: Lisinopril 20 MG Tablet PO SCH (10:42)
[2018-02-02] MEDS: hydrALAZINE 50 MG Tablet PO SCH ×3 (10:42→17:39)
[2018-02-02] MEDS: Propranolol 10 MG Tablet PO SCH (10:42)
[2018-02-02] MEDS: Senna/Docusate Sodium 8.6/50 MG Tablet PO SCH ×2 (10:43→22:35)
[2018-02-02] MEDS: MethylPREDNISolone Sod Succinate Inj 40 MG/ML Vial IV.PUSH SCH ×2 (10:43→20:06)
[2018-02-02] MEDS: guaiFENesin 600 MG ER Tablet PO SCH ×2 (10:43→20:06)
[2018-02-02] MEDS: Budesonide-Formoterol 160/4.5 MCG 6 GM Inhaler INH SCH ×2 (10:44→20:08)
[2018-02-02] MEDS: Sod Chloride 0.9% Inj 1,000 ML IV.CONT SCH (10:47)
[2018-02-02] MEDS: Heparin - SQ 10,000 UNITS/ML Vial SQ SCH (12:39)
[2018-02-02] MEDS ORDERED: Regadenoson Inj 0.4 MG/5 ML Syringe IV.PUSH ONE (13:46)
--- NOTE | 2018-02-02 15:22 | NM ---
EXAM DATE: 02/02/2018 3:14 PM EDT AGE/SEX: 68 years / Female INDICATIONS:Abnormal EKG. Coronary artery disease CLINICAL DATA: This is the patient's initial encounter. Patient reports that signs and symptoms have been present for 1 day and indicates a pain score of 2/10. MEDICAL/SURGICAL HISTORY: Hypertension. Congestive heart failure. Chronic obstructive pulmona ry disease. Mastectomy, bilateral. COMPARISON: No prior exams available for comparison. DOSE: 8.3 mCi Tc 99m Myoview at rest 26.3 mCi [id number] at stress .04 mg Lexiscan STRESS SYMPTOMS: Short of breath. EJECTION FRACTION: 42 % TECHNIQUE: The patient underwent pharmacologic stress with infusion of prescribed dose. Continuous ECG tracing was monitored during stress. Gated SPECT imaging was performed after stress and conventi onal SPECT imaging was performed at rest. The examination was performed on a SPECT/CT scanner, both attenuation and non-corrected datasets were reviewed. FINDINGS: Distribution: The maximum perfused segment at stress is in the lateral wall. Perfusion Study: The pattern of perfusion at stress is within normal limits. Gated Study: There are intact wall motion and wall thickening without hypokinetic or dyskinetic segm ents. The ejection fraction is calculated at 42%. RISK CATEGORY: Low risk CONCLUSION: 1. No evidence of fixed or reversible perfusion defect. Electronically signed by: Abeba Dave MD 02/02/2018 3:21 PM EDT
[2018-02-03] MEDS: Heparin - SQ 10,000 UNITS/ML Vial SQ SCH ×2 (00:16→16:17)
[2018-02-03] MEDS: Insulin NovoLOG Aspart Correctional Sugar Inj SQ SCH ×4 (00:17→18:15)
[2018-02-03] MEDS: Piperacil/Tazo 3.375 GM Premix 50 ML IV.SIG SCH (03:23)
--- NOTE | 2018-02-03 07:57 | P.PNCA ---
Subjective Interval history: resting comfortably. no chest pain overnight. breathing improved. Physical Exam Vital signs: Vital Signs 02/02/18 08:00 02/02/18 10:51 02/02/18 12:00 Temperature 97.7 F 97.4 F L Pulse Rate 88 88 80 Respiratory Rate 18 16 Blood Pressure 158/81 H 140/66 Pulse Oximetry 96 96 02/02/18 16:00 02/02/18 20:00 02/03/18 00:00 Temperature 97.6 F 98.1 F 98.1 F Pulse Rate 83 83 83 Respiratory Rate 16 18 18 Blood Pressure 155/66 H 155/76 H 155/76 H Pulse Oximetry 97 100 100 02/03/18 04:00 02/03/18 04:05 Temperature 98.1 F Pulse Rate 75 76 Respiratory Rate 18 Blood Pressure 160/89 H Pulse Oximetry 100 Intake & Output 02/02/18 02/03/18 02/03/18 18:59 06:59 18:59 Intake Total 100 / 100 1050 / 1050 Balance 100 / 100 1050 / 1050 Intake: IV 100 / 100 1050 / 1050 NS Inj 1,000 ML @ 84 mls/hr IV. 1000 / 1000 CONT .[id number] [facility] Rx#:[id number] Zosyn 3.375 GM Premix 50 ML @ 100 / 100 50 / 50 100 mls/hr IV.SIG Q8H [facility]AN[facility]NA Rx#: [id number] Other: # Voids 1 Date of Last Bowel Movement 02/02/18 01/31/18 Narrative: GENERAL: SKIN: Warm and dry. HEAD: Normocephalic. EYES: No scleral icterus. No injection or drainage. NECK: Supple, trachea midline. No JVD or lymphadenopathy. CARDIOVASCULAR: Regular rate and rhythm without murmurs, gallops, or rubs. RESPIRATORY: Diminished breath sounds to bilateral bases, mild expiratory wheeze. No accessory muscle use. GASTROINTESTINAL: Abdomen soft, non-tender, nondistended. MUSCULOSKELETAL: No cyanosis, or edema. - Urinary Catheter Management Indwelling Urethral Catheter Cath placed during this visit: yes, but has since been removed by the nurse Reason for continuing: Decision to DC catheter Insertion date: 01/27/18 Insertion time: 09:35 Removal date: 01/29/18 Removal time: 04:30 Assessment and Plan - Assessment (1) NSTEMI (non-ST elevated myocardial infarction) Code(s): I21.4 - Non-ST elevation (NSTEMI) myocardial infarction Status: Acute (2) CHF (congestive heart failure) Code(s): I50.9 - Heart failure, unspecified Status: Acute (3) Chest pain Code(s): R07.9 - Chest pain, unspecified Status: Acute - Plan 68 yo F with COPD, breast ca, HTN, PAD with stents to legs, CHF and dementia who presented earlier this week with respiratory distress requiring intubation and ventilator support. She was diagnosed with pneumonia and sepsis with recent extubation and clinically improving. atypical chest pain- no chest pain overnight. lexiscan did not demonstrate ischemia, EF 42%; cont medical management. HTN- SBP remains elevated. consider additional antihypertensive agent such as amlodipine discharge planning to SNF - Attending Attestation medically manage lexiscan no significant ischemia add isosorbide dc planning will sign off call with further questions
[2018-02-03] MEDS: hydrALAZINE 50 MG Tablet PO SCH ×2 (10:24→16:07)
[2018-02-03] MEDS: Propranolol 10 MG Tablet PO SCH (10:24)
[2018-02-03] MEDS: predniSONE 20 MG Tablet PO SCH (10:25)
[2018-02-03] MEDS: Senna/Docusate Sodium 8.6/50 MG Tablet PO SCH ×2 (10:26→21:46)
[2018-02-03] MEDS: guaiFENesin 600 MG ER Tablet PO SCH ×2 (10:26→21:41)
[2018-02-03] MEDS: Budesonide-Formoterol 160/4.5 MCG 6 GM Inhaler INH SCH ×2 (10:28→21:44)
--- NOTE | 2018-02-03 10:50 | P.PNIM ---
Subjective Interval history: f/u; respiratory failure/ chest pain. in no acute distress. no fever. has some on off chest pain. Physical Exam Vital signs: Vital Signs 02/02/18 10:51 02/02/18 12:00 02/02/18 16:00 Temperature 97.4 F L 97.6 F Pulse Rate 88 80 83 Respiratory Rate 16 16 Blood Pressure 140/66 155/66 H Pulse Oximetry 96 97 02/02/18 20:00 02/03/18 00:00 02/03/18 04:00 Temperature 98.1 F 98.1 F 98.1 F Pulse Rate 83 83 75 Respiratory Rate 18 18 18 Blood Pressure 155/76 H 155/76 H 160/89 H Pulse Oximetry 100 100 100 02/03/18 04:05 02/03/18 08:00 Temperature 98.2 F Pulse Rate 76 76 Respiratory Rate 18 Blood Pressure 140/81 Pulse Oximetry 97 Intake & Output 02/02/18 02/03/18 02/03/18 18:59 06:59 18:59 Intake Total 100 / 100 1050 / 1050 240 / 240 Output Total 400 / 400 Balance 100 / 100 1050 / 1050 -160 / -160 Intake: IV 100 / 100 1050 / 1050 NS Inj 1,000 ML @ 84 mls/hr IV. 1000 / 1000 CONT .[id number] [facility] Rx#:[id number] Zosyn 3.375 GM Premix 50 ML @ 100 / 100 50 / 50 100 mls/hr IV.SIG Q8H [facility]AN[facility]NA Rx#: [id number] Oral 240 / 240 Output: Urine 400 / 400 Other: # Voids 1 Date of Last Bowel Movement 02/02/18 01/31/18 - Constitutional no acute distress - Routine Respiratory Exam Present: CTA bilaterally - Routine Cardiovascular Exam Present: RRR - Routine Abdominal Exam Present: soft - Routine Extremities Exam Comments: no pedal edema. - Routine Neurological Exam Present: alert, oriented X3 - Urinary Catheter Management Indwelling Urethral Catheter Cath placed during this visit: yes, but has since been removed by the nurse Reason for continuing: Decision to DC catheter Insertion date: 01/27/18 Insertion time: 09:35 Removal date: 01/29/18 Removal time: 04:30 Results - Labs CBC & Chem 7: 02/01/18 07:27 02/03/18 07:00 Laboratory Results - last 24 hr 02/02/18 02/02/18 02/03/18 11:00 17:36 00:10 Creatinine Estimated GFR POC Glucose 125 H 182 H 410 H 02/03/18 02/03/18 02/03/18 00:11 05:44 07:00 Creatinine 1.58 H Estimated GFR 32 L POC Glucose 185 H 161 H 02/03/18 10:19 Creatinine Estimated GFR POC Glucose 153 H - Imaging Impressions Myocardial Perfusion Scan Nuc Med 02/02/18 00:00 CONCLUSION: 1. No evidence of fixed or reversible perfusion defect. Assessment and Plan - Plan Acute hypercapnic hypoxemic respiratory failure-resolved Chronic obstructive pulmonary disease exacerbation- sepsis due to pneumonia continue prednisone. continue DuoNeb on Symbicort, Spiriva and deescalate the antibiotic regimen today; stopped Vancomycin. Monitor culture; strep pneumonia and legionella urinary antigens negative. stop Zosyn and change to po Augmentin. chest pain with mildly elevated troponin- . stress test with no fixed or reversible ischemia. cardiology consult appreciated. Acute kidney injury. Creatinine improving Monitor BUN and creatinine, and avoid all nephrotoxic drug Urinary tract infection treated with Zosyn - Labile benign hypertension. Resumed lisinopril 20 mg daily, Propanolol 10 mg daily and increased hydralazine to 75 mg 3 times daily. will add Norvasc. continue to monitor and adjust the regimen as needed. History of breast cancer Chronic, outpatient management PT Consulted to treat and eval GI prophylaxis-with Protonix 40 mg daily. DVT prophylaxis with heparin subcutaneously and SCDs. Discharge Planning: dc to SNF within the next 24 hrs if stable.
[2018-02-03] MEDS: Lisinopril 20 MG Tablet PO SCH (10:55)
[2018-02-03] MEDS ORDERED: amLODIPine 5 MG Tablet PO SCH (11:00)
--- NOTE | 2018-02-03 12:34 | ECG ---
Date Performed: 02/01/2018 Time Performed: 10:55:26 PTAGE: 68 years EKG: Sinus rhythm WITH SHORT NH INTERVAL WITH FREQUENT SUPRAVENTRICULAR PREMATURE COMPLEXES POSSIBLE LEFT ATRIAL ENLAR GEMENT ST DEVIATION AND MODERATE T-WAVE ABNORMALITY, CONSIDER ANTERIOR ISCHEMIA Compared to previous tracing T wave inversion in the anterolateral leads is now present, consider anterolateral ischemia A BNORMAL ECG PREVIOUS TRACING : 10/16/2016 23.13 DOCTOR: Samuel Duval Interpretating Date/Time 02/03/2018 12:31:52
--- NOTE | 2018-02-03 13:08 | ECG ---
Date Performed: 02/01/2018 Time Performed: 19:15:47 PTAGE: 68 years EKG: Sinus rhythm POSSIBLE LEFT ATRIAL ENLARGEMENT ST DEVIATION AND MODERATE T-WAVE ABNORMALITY, CONSIDER ANTERIOR ISC HEMIA ABNORMAL ECG PREVIOUS TRACING : 02/01/2018 10.55 Since the previous tracing, no significant change noted DOCTOR: Samuel Duval Interpretating Date/Time 02/03/2018 13:06:50
[2018-02-03] MEDS: Isosorbide Mononitrate 60 MG ER 24HR Tablet (Imdur) PO SCH (16:17)
[2018-02-03] MEDS: Amoxicillin/Clavulanate 875/125 MG Tablet PO SCH ×2 (16:17→21:41)
[2018-02-04] MEDS: Insulin NovoLOG Aspart Correctional Sugar Inj SQ SCH ×4 (00:05→18:28)
[2018-02-04] MEDS: Heparin - SQ 10,000 UNITS/ML Vial SQ SCH ×2 (00:05→13:05)
[2018-02-04] MEDS: Isosorbide Mononitrate 60 MG ER 24HR Tablet (Imdur) PO SCH (06:14)
[2018-02-04] MEDS: Amoxicillin/Clavulanate 875/125 MG Tablet PO SCH (08:53)
[2018-02-04] MEDS: Senna/Docusate Sodium 8.6/50 MG Tablet PO SCH ×2 (08:54→22:22)
[2018-02-04] MEDS: Lisinopril 20 MG Tablet PO SCH (08:54)
[2018-02-04] MEDS: predniSONE 20 MG Tablet PO SCH (08:54)
[2018-02-04] MEDS: guaiFENesin 600 MG ER Tablet PO SCH ×2 (08:54→22:22)
[2018-02-04] MEDS: Budesonide-Formoterol 160/4.5 MCG 6 GM Inhaler INH SCH ×2 (08:54→22:23)
[2018-02-04] MEDS: Propranolol 10 MG Tablet PO SCH (08:54)
--- NOTE | 2018-02-04 10:51 | P.PNIM ---
Subjective Interval history: f/u; respiratory failure with mild sob. no fever. denies pain. reported by the RN that she's been having visual hallucinations; when I asked the patient, she said that ' there was this little boy who's been playing in that corner'. Physical Exam Vital signs: Vital Signs 02/03/18 11:55 02/03/18 16:00 02/03/18 19:49 Temperature 97.4 F L 97.4 F L Pulse Rate 75 66 75 Respiratory Rate 18 18 Blood Pressure 168/70 H 161/73 H Pulse Oximetry 95 99 02/03/18 20:00 02/03/18 21:39 02/04/18 00:00 Temperature 97.9 F 97.8 F Pulse Rate 77 80 Respiratory Rate 18 18 Blood Pressure 171/81 H 156/72 H 167/84 H Pulse Oximetry 97 98 02/04/18 04:00 02/04/18 08:00 Temperature 98.1 F 97.3 F L Pulse Rate 72 77 Respiratory Rate 18 18 Blood Pressure 163/86 H 153/79 H Pulse Oximetry 98 100 Intake & Output 02/03/18 02/04/18 02/04/18 18:59 06:59 18:59 Intake Total 1320 / 1320 Output Total 1202 / 1202 Balance 118 / 118 Weight 72.2 kg Intake: Oral 1320 / 1320 Output: Urine 1202 / 1202 Other: # Voids 3 Date of Last Bowel Movement 02/02/18 02/02/18 - Constitutional mild distress - Routine Respiratory Exam Present: CTA bilaterally - Routine Cardiovascular Exam Present: RRR - Routine Abdominal Exam Present: soft - Routine Extremities Exam Comments: no pedal edema. - Routine Neurological Exam Present: alert - Urinary Catheter Management Indwelling Urethral Catheter Cath placed during this visit: yes, but has since been removed by the nurse Reason for continuing: Decision to DC catheter Insertion date: 01/27/18 Insertion time: 09:35 Removal date: 01/29/18 Removal time: 04:30 Results - Labs CBC & Chem 7: 02/04/18 14:40 02/04/18 14:40 Laboratory Results - last 24 hr 02/03/18 02/03/18 02/04/18 15:58 23:58 06:12 POC Glucose 162 H 168 H 170 H Assessment and Plan - Plan Acute hypercapnic hypoxemic respiratory failure-resolved Chronic obstructive pulmonary disease exacerbation-improving slowly. sepsis due to pneumonia continue prednisone and continue to taper off. continue DuoNeb on Symbicort. strep pneumonia and legionella urinary antigens negative. treated with antibiotics. chest pain with mildly elevated troponin- . stress test with no fixed or reversible ischemia. cardiology consult appreciated; Imdur was added- continue medical treatment. Acute kidney injury. Creatinine improved. Monitor BUN and creatinine, and avoid all nephrotoxic drug Elevated LFT's - suspect drug-induced?- with no significant improvement. denies abdominal pain/ - zosyn discontinued and seroquel on hold-will check liver sonogram and hepatitis panel- monitor LFT's. Urinary tract infection treated with Zosyn - Visual Hallucinations; will consult psych. Labile benign hypertension. Resumed lisinopril 20 mg daily, Propanolol 10 mg daily . Imdur was added. continue to monitor and adjust the regimen as needed. History of breast cancer Chronic, outpatient management PT Consulted to treat and eval GI prophylaxis-with Protonix 40 mg daily. DVT prophylaxis with SCDs- Discharge Planning: dc planning within the next couple of days if stable- pending psych evaluation.
[2018-02-04] MEDS ORDERED: QUEtiapine 25 MG Tablet PO SCH (14:30)
--- NOTE | 2018-02-04 14:48 | P.CONPSY ---
Provisional Diagnosis Admission Date: January 27, 2018 11:49 Holden I.: Unspecified psychosis, depression, anxiety History of Present Illness Service: Medicine Primary Care Provider: UNKNOWN Chief Complaint: Chest pain History of Present Illness: The patient is a 68-year-old woman, , domiciled in an [facility], with psychiatric history of depression, anxiety, dementia, no previous psychiatric admissions, no previous suicide attempts, with past medical history of breast cancer, hypertension, arthritis, COPD, CHF, who presented to [facility] ED with respiratory distress. Per EMS, the patient had initial O2 saturation in the 70s and, on arrival to the ED, she was in extremis and was subsequently intubated and placed on full mechanical ventilation. She was admitted with chronic obstructive pulmonary disease exacerbation. sepsis due to pneumonia, Acute kidney injury, UTI. Medical conditions are now resolved. But the patient continues to present active visual hallucinations. Psychiatry was consulted. Chart was reviewed. Psychiatric evaluation the patient is calm, cooperative, but quite distressed by visual hallucinations and paranoia. The patient reports that she has been feeling observe in her room, "there are several things in this hospital going on about me, but nobody is telling me anything". As the patient is telling me this there are some noises in the [place] that she says are "people looking for me". She also reports that she has been seeing kids coming in and out of her room. "I just saw a very mean boy trying to steal my breakfast". Patient is fully oriented 3, she is mostly logical, coherent and relevant. Her thought process is linear. She reports okay mood, denies anhedonia, denies hopelessness, denies helplessness, denies suicidal and homicidal ideation. Patient reports history of depression, but denies hospitalizations, denies suicidal attempts, she is not in psychotropics at the moment Medical history of COPD, CHF, hypertension, arthritis, breast cancer No family psychiatric history Patient denies the use of illegal drugs or alcohol The patient was born and raised in [place], she lives in [facility], , she has 1 daughter, supported by Social Security Review of Systems All other systems reviewed negative except as stated in HPI Psychiatric: Reports paranoia, Reports sensing things others do not sense [facility] - History History Provided By: Medical Record, Range Manager / EMT - Medical History Medical History: Medical History (Last Reviewed 01/31/18 @ 09:12 by Francisco Avilez) Cerebral atherosclerosis Dementia Dyspnea HTN (hypertension) TIA (transient ischemic attack) Arthritis Breast CA CHF (congestive heart failure) COPD (chronic obstructive pulmonary disease) FH: mastectomy - Tobacco History Smoking Status: Unknown if ever smoked Tobacco Type: Cigarettes - Alcohol History How Often Do You Have a Drink Containing Alcohol: Unable to Obtain - Substance Use History Substance History: Unable to Obtain - Travel History Recent Travel in the [place] Within the Last 8 Weeks: No Recent Travel Out of the Country Within the Last 8 Weeks: No - Immunization History Tetanus Immunization: Unable to Assess Hx Influenza Vaccine This Season: Unable to Assess Medications and Allergies Active Medications: Active Medications Al Hydroxide/Mg Hydroxide (Milk Of Saima Quintanaq) 30 ml PO Q12H PRN PRN Reason: Mild Constipation Albuterol (Duoneb Neb (Prn)) 1 ampul NEB Q2HR NEB PRN PRN Reason: DYSPNEA Last Admin: 02/01/18 08:50 Dose: 1 ampul Amoxicillin/Clavulanate Potassium (Augmentin 875/125 Mg) 1 tab PO Q12HR [facility] Last Admin: 02/04/18 08:53 Dose: 1 tab Bisacodyl (Dulcolax Supp) 10 mg RECTAL DAILY PRN PRN Reason: SEVERE CONSITIPATION Budesonide/Formoterol Fumarate (Symbicort 160/4.5 Mcg Inh) 2 puff INH BID [facility] Last Admin: 02/04/18 08:54 Dose: 2 puff Clopidogrel Bisulfate (Plavix) 75 mg PO DAILY [facility] Last Admin: 02/04/18 08:54 Dose: 75 mg Dextrose (D50w Vial) 50 ml IV.PUSH UNSCH PRN PRN Reason: PER HYPOGLYCEMIA PROTOCOL Enalaprilat (Vasotec Inj) 2.5 mg IV.PUSH Q6H PRN PRN Reason: SBP > 160 Last Admin: 02/02/18 01:00 Dose: 2.5 mg Glucagon (Glucagon Inj) 1 mg OTHER PRN PRN PRN Reason: for Hypoglycemia Protocol Guaifenesin (Mucinex Er) 600 mg PO BID [facility] Last Admin: 02/04/18 08:54 Dose: 600 mg Heparin Sodium (Porcine) (Heparin Inj) 5,000 units SQ Q12H [facility] Last Admin: 02/04/18 13:05 Dose: Not Given Hydralazine HCl (Apresoline Inj) 20 mg IV.PUSH Q4H PRN PRN Reason: SBP>160, DBP>90 Hydralazine HCl (Apresoline) 75 mg PO TID [facility] Last Admin: 02/03/18 16:07 Dose: Not Given Sodium Chloride (Ns Inj) 1,000 mls @ 0 mls/hr IV.SIG BOLUS [facility] Last Infusion: 01/28/18 05:57 Dose: Infused Insulin Aspart (Novolog Insulin Correctional Sugar Inj) 0 unit SQ Q6HR [facility]; Protocol Last Admin: 02/04/18 13:05 Dose: Not Given Isosorbide Mononitrate (Imdur) 60 mg PO DAILY@0700 [facility] Last Admin: 02/04/18 06:14 Dose: 60 mg Labetalol HCl (Trandate Inj) 10 mg IV.PUSH Q4H PRN PRN Reason: SBP>160, DBP>90 Last Admin: 01/29/18 06:20 Dose: 10 mg Lactulose (Lactulose Liq) 30 ml PO DAILY PRN PRN Reason: SEVERE CONSITIPATION Lisinopril (Prinivil) 20 mg PO DAILY [facility] Last Admin: 02/04/18 08:54 Dose: 20 mg Miscellaneous Information ([facility] Ordered Lab Info) 0 each OTHER ONCE [facility] Morphine Sulfate (Morphine Inj) 2 mg IV.PUSH Q4H PRN PRN Reason: chest pain Last Admin: 02/02/18 22:33 Dose: 2 mg Pantoprazole Sodium (Protonix) 40 mg PO DAILY [facility] Last Admin: 02/04/18 08:54 Dose: 40 mg Prednisone (Deltasone) 30 mg PO DAILY [facility] Propranolol HCl (Inderal) 10 mg PO DAILY [facility] Last Admin: 02/04/18 08:54 Dose: 10 mg Quetiapine Fumarate (Seroquel) 12.5 mg PO BID [facility] Senna/Docusate Sodium (Rola-Colace) 1 tab PO BID [facility] Last Admin: 02/04/18 08:54 Dose: 1 tab Sennosides (Senokot) 17.2 mg PO Q12H PRN PRN Reason: Moderate Constipation Sodium Chloride (Ns Flush) 2 ml IV.FLUSH UNSCH PRN PRN Reason: FLUSH AFTER USING IV ACCESS Allergies Allergy/AdvReac Type Severity Reaction Status Date / Time aripiprazole Allergy Severe Chest Pain Unverified 10/16/17 19:27 lurasidone Allergy Unknown UNKNOWN Unverified 10/16/17 19:27 Home Medications Medication Instructions Recorded Confirmed Type cholestyramine (with sugar) 4 g PO BID 01/27/18 01/27/18 History clopidogrel 75 mg PO DAILY 01/27/18 01/27/18 History fentanyl 1 patch TRANSDERMAL Q72H 01/27/18 01/27/18 History lisinopril 20 mg PO DAILY 01/27/18 01/27/18 History loperamide 2 mg PO BID 01/27/18 01/27/18 History melatonin 3 mg PO HS PRN 01/27/18 01/27/18 History meloxicam 15 mg PO DAILY 01/27/18 01/27/18 History omeprazole 20 mg PO DAILY 01/27/18 01/27/18 History paroxetine HCl 30 mg PO DAILY 01/27/18 01/27/18 History propranolol 10 mg PO DAILY 01/27/18 01/27/18 History Exam Vital signs: Vital Signs 02/03/18 16:00 02/03/18 19:49 02/03/18 20:00 Temperature 97.4 F L 97.9 F Pulse Rate 66 75 77 Respiratory Rate 18 18 Blood Pressure 161/73 H 171/81 H Pulse Oximetry 99 97 02/03/18 21:39 02/04/18 00:00 02/04/18 04:00 Temperature 97.8 F 98.1 F Pulse Rate 80 72 Respiratory Rate 18 18 Blood Pressure 156/72 H 167/84 H 163/86 H Pulse Oximetry 98 98 02/04/18 08:00 02/04/18 12:00 Temperature 97.3 F L 97.2 F L Pulse Rate 77 73 Respiratory Rate 18 18 Blood Pressure 153/79 H 163/83 H Pulse Oximetry 100 99 Intake & Output 02/03/18 02/04/18 02/04/18 18:59 06:59 18:59 Intake Total 1320 / 1320 Output Total 1202 / 1202 Balance 118 / 118 Weight 72.2 kg Intake: Oral 1320 / 1320 Output: Urine 1202 / 1202 Other: # Voids 3 Date of Last Bowel Movement 02/02/18 02/02/18 Narrative: Patient is quite hypoactive, but no agitation or psychomotor retardation present , no stiffness, no tremors, no catatonia, no EPS Mental Status Examination Appearance: Appropriate Consciousness: Alert Orientation: x4 Motor Activity: Normal gait Speech: Unremarkable Language: Adequate Fund of Knowledge: Adequate Attention and Concentration: Adequate Memory: Unremarkable Mood: Appropriate Affect: Appropriate Thought Process & Associations: Intact Thought Content: Appropriate Hallucination Type: Visual Delusion Type: Paranoid Suicidal Ideation: No Suicidal Plan: No Suicidal Intention: No Homicidal Ideation: No Homicidal Plan: No Homicidal Intention: No Insight: Poor Judgment: Poor Assessment and Plan - Assessment (1) Unspecified psychosis Code(s): F29 - Unspecified psychosis not due to a substance or known physiological condition Status: Acute - Plan Plan: Estimated LOS: [] days ON Psychiatric evaluation the patient presents with active visual hallucinations consisting and seeing kids coming inside her room. She is also paranoid and guarded. Patient seems to be quite distressed and anxious about her present perceptual disturbances. She has psychiatric history of anxiety and depression, she is now currently psychotropics. She denies suicidal and homicidal ideation. The patient is fully oriented 3, filtration of consciousness, no attention deficit at this moment. Given the level of distress produced by her psychosis the patient will be admitted in psychiatry for stabilization and safety. We will start Seroquel 12.5 mg twice daily for psychosis. Going to place the patient on the Tena act. Case discussed with primary medical team Justification for Continued Inpatient Stay: Patient is for psychiatric admission.
[2018-02-04 14:59] LABS: Albumin 3.3 g/dL (3.4-5.0); Anion Gap 12 meq/L (5-15); Aspartate Aminotransferase 129 U/L (15-37); Blood Urea Nitrogen 44 mg/dL (7-18); Calcium 8.6 mg/dL (8.5-10.1); Carbon Dioxide 17.8 meq/L (21.0-32.0); Chloride 113 meq/L (98-107); Glomerular Filtration Rate 36 mL/min (>89); Glucose,Random 155 mg/dL (74-106); Potassium 3.8 meq/L (3.5-5.1); Sodium 143 meq/L (136-145)
[2018-02-04 15:00] LABS: Alanine Aminotransferase 321 U/L (10-53)
[2018-02-04 15:02] LABS: Alkaline Phosphatase 105 U/L (45-117); Total Protein 6.3 g/dL (6.4-8.2)
[2018-02-04 15:38] LABS: Hemoglobin 9.3 gm/dL (11.6-15.3); Mean Corpuscular HGB Conc 33.1 % (32.0-36.0); Mean Corpuscular Hemoglobin 31.6 pg (27.0-34.0); Mean Corpuscular Volume 95.4 fL (80.0-100.0); Mean Platelet Volume 9.3 fL (7.0-11.0); Platelet Count 232 th/mm3 (150-450); Red Blood Count 2.94 mil/mm3 (4.00-5.30); Red Cell Distribution Width 13.6 % (11.6-17.2); White Blood Count 11.7 th/mm3 (4.0-11.0)
[2018-02-04 15:57] LABS: Albumin 3.2 g/dL (3.4-5.0); Anion Gap 15 meq/L (5-15); Aspartate Aminotransferase 135 U/L (15-37); Blood Urea Nitrogen 42 mg/dL (7-18); Calcium 8.3 mg/dL (8.5-10.1); Carbon Dioxide 18.3 meq/L (21.0-32.0); Chloride 113 meq/L (98-107); Glomerular Filtration Rate 35 mL/min (>89); Glucose,Random 152 mg/dL (74-106); Potassium 3.9 meq/L (3.5-5.1); Sodium 146 meq/L (136-145)
[2018-02-04 16:01] LABS: Alanine Aminotransferase 336 U/L (10-53); Alkaline Phosphatase 107 U/L (45-117); Total Protein 6.2 g/dL (6.4-8.2)
--- NOTE | 2018-02-04 17:34 | P.PNADD ---
Addendum to Inpatient Note Reason for Addendum: Additional Documentation (d/w ; patient needs inpatient psych evaluation- Seroquel on hold because of elevated LFT's- dc planning; med-psych unit within the next 48 hrs if stable.)
[2018-02-04] MEDS: Sodium Chlor 0.9% Inj 500 ML IV.CONT SCH (18:27)
[2018-02-04 22:22] LABS: Hepatitis A IgM Antibody Nonreactive (Nonreactive); Hepatitits B Surface Antigen Nonreactive (Nonreactive)
[2018-02-05] MEDS: Insulin NovoLOG Aspart Correctional Sugar Inj SQ SCH ×3 (01:36→11:23)
[2018-02-05] MEDS: Sodium Chlor 0.9% Inj 500 ML IV.CONT SCH ×2 (01:36→09:55)
[2018-02-05] MEDS: Isosorbide Mononitrate 60 MG ER 24HR Tablet (Imdur) PO SCH (06:36)
--- NOTE | 2018-02-05 07:41 | P.PN ---
Subjective Interval history: Follow patient with acute hypercapnic hypoxemic respiratory failure. Patient seen and examined. Patient denies any acute medical complaints. She denies any headache or vision changes. She denies any numbness, tingling or weakness. She denies any chest pain or shortness of breath. She denies any nausea, vomiting or abdominal pain. Discussed with nursing staff, no acute events noted overnight. Physical Exam Vital signs: Vital Signs 02/04/18 08:00 02/04/18 12:00 02/04/18 16:00 Temperature 97.3 F L 97.2 F L 97.4 F L Pulse Rate 77 73 77 Respiratory Rate 18 Blood Pressure 153/79 H 163/83 H 161/84 H Pulse Oximetry 100 99 100 02/04/18 20:00 02/05/18 00:00 02/05/18 04:00 Temperature 97.4 F L 98.3 F 97.2 F L Pulse Rate 78 78 76 Respiratory Rate 16 16 16 Blood Pressure 162/86 H 173/93 H 183/101 H Pulse Oximetry 100 99 100 Intake & Output 02/04/18 02/05/18 02/05/18 18:59 06:59 18:59 Intake Total 500 / 500 Output Total 200 / 200 Balance -200 / -200 500 / 500 Weight 70.9 kg Intake: IV 500 / 500 NS Inj 500 ML @ 70 mls/hr IV. 500 / 500 CONT .Q7H9M [facility] Rx#:[id number] Output: Urine 200 / 200 Other: # Voids 1 Date of Last Bowel Movement 02/02/18 02/02/18 Narrative: GENERAL: Well-developed well-nourished female patient, no acute distress. Awake and alert. Oriented 1. SKIN: Warm and dry. +scattered ecchymosis bilateral UEs. HEAD: Atraumatic. Normocephalic. EYES: Pupils equal and round. No scleral icterus. No injection or drainage. ENT: No nasal bleeding or discharge. Mucous membranes pink and moist. NECK: Trachea midline. CARDIOVASCULAR: Regular rate and rhythm. RESPIRATORY: No accessory muscle use. Clear to auscultation. Breath sounds equal bilaterally. GASTROINTESTINAL: Abdomen soft, non-tender, nondistended. +BS. MUSCULOSKELETAL: Extremities without clubbing, cyanosis, or edema. No obvious deformities. NEUROLOGICAL: Awake and alert. Oriented x 1. No obvious cranial nerve deficits. Motor grossly within normal limits. Able to move all extremities Normal speech. PSYCHIATRIC: Calm and cooperative; insight and judgment poor. - Urinary Catheter Management Indwelling Urethral Catheter Cath placed during this visit: yes, but has since been removed by the nurse Reason for continuing: Decision to DC catheter Insertion date: 01/27/18 Insertion time: 09:35 Removal date: 01/29/18 Removal time: 04:30 Results - Labs CBC & Chem 7: 02/04/18 14:40 02/05/18 07:47 Laboratory Results - last 24 hr 02/04/18 02/04/18 02/04/18 11:35 14:05 14:40 WBC 11.7 H RBC 2.94 L Hgb 9.3 L Hct 28.0 L MCV 95.4 MCH 31.6 MCHC 33.1 RDW 13.6 Plt Count 232 MPV 9.3 Sodium 143 Potassium 3.8 Chloride 113 H Carbon Dioxide 17.8 L Anion Gap 12 BUN 44 H Creatinine 1.45 H Estimated GFR 36 L POC Glucose 163 H Random Glucose 155 H Calcium 8.6 Total Bilirubin 1.4 H AST 129 H ALT 321 H Alkaline Phosphatase 105 Total Protein 6.3 L Albumin 3.3 L Hepatitis A IgM Ab Hep Bs Antigen Hep B Core IgM Ab Hep C IgG Ab 02/04/18 02/04/18 02/04/18 14:40 17:36 20:10 WBC RBC Hgb Hct MCV MCH MCHC RDW Plt Count MPV Sodium 146 H Potassium 3.9 Chloride 113 H Carbon Dioxide 18.3 L Anion Gap 15 BUN 42 H Creatinine 1.46 H Estimated GFR 35 L POC Glucose 186 H Random Glucose 152 H Calcium 8.3 L Total Bilirubin 1.4 H AST 135 H ALT 336 H Alkaline Phosphatase 107 Total Protein 6.2 L Albumin 3.2 L Hepatitis A IgM Ab Nonreactive Hep Bs Antigen Nonreactive Hep B Core IgM Ab Nonreactive Hep C IgG Ab Nonreactive 02/04/18 21:40 WBC RBC Hgb Hct MCV MCH MCHC RDW Plt Count MPV Sodium Potassium Chloride Carbon Dioxide Anion Gap BUN Creatinine Estimated GFR POC Glucose 173 H Random Glucose Calcium Total Bilirubin AST ALT Alkaline Phosphatase Total Protein Albumin Hepatitis A IgM Ab Hep Bs Antigen Hep B Core IgM Ab Hep C IgG Ab Assessment and Plan - Plan Acute hypercapnic hypoxemic respiratory failure-resolved Chronic obstructive pulmonary disease exacerbation-improving slowly. sepsis due to pneumonia continue prednisone and continue to taper off. continue DuoNeb on Symbicort. strep pneumonia and legionella urinary antigens negative. completed antibiotics treatment Chest pain with mildly elevated troponin stress test with no fixed or reversible ischemia. Cardiology consult appreciated; Imdur was added- continue medical treatment. Cards has signed off. Acute kidney injury. Creatinine improved Avoid all nephrotoxic agents Monitor BUN and creatinine Elevated LFT's - suspect drug-induced?- with no significant improvement. Denies abdominal pain Hepatitis panel neg Liver US shows small echogenic liver zosyn discontinued and seroquel on hold - seroquel resumed by psych Consult GI, appreciate assistance avoid hepatotoxic agents continue to trend LFTs Urinary tract infection treated with Zosyn Visual Hallucinations Hx of anxiety and depression Psych following, appreciate assistance. Patient placed under Tena Act. Okay to transfer to [facility] psych when bed available. Labile benign hypertension BP uncontrolled, 183/101 this am Continue on Lipitor, lisinopril and propanolol. Resume hydralazine 75 mg 3 times daily. Begin Norvasc 5 mg daily. Imdur was added. continue to monitor and adjust the regimen as needed. History of breast cancer Chronic, outpatient management Dementia [facility] resident continue with PT GI prophylaxis-with Protonix 40 mg daily. DVT prophylaxis with Heparin sq
[2018-02-05] MEDS ORDERED: predniSONE 10 MG Tablet PO SCH (09:00)
[2018-02-05 09:04] LABS: Alanine Aminotransferase 302 U/L (10-53); Albumin 3.2 g/dL (3.4-5.0); Anion Gap 13 meq/L (5-15); Aspartate Aminotransferase 120 U/L (15-37); Calcium 8.3 mg/dL (8.5-10.1); Carbon Dioxide 18.2 meq/L (21.0-32.0); Chloride 112 meq/L (98-107); Glomerular Filtration Rate 39 mL/min (>89); Glucose,Random 154 mg/dL (74-106); Potassium 3.7 meq/L (3.5-5.1); Sodium 143 meq/L (136-145)
[2018-02-05 09:11] LABS: Alkaline Phosphatase 204 U/L (45-117); Blood Urea Nitrogen 37 mg/dL (7-18); Total Protein 6.2 g/dL (6.4-8.2)
[2018-02-05] MEDS ORDERED: amLODIPine 5 MG Tablet PO SCH (09:15)
[2018-02-05] MEDS: hydrALAZINE 50 MG Tablet PO SCH (09:35)
[2018-02-05] MEDS: Propranolol 10 MG Tablet PO SCH (09:35)
[2018-02-05] MEDS: guaiFENesin 600 MG ER Tablet PO SCH (09:36)
[2018-02-05] MEDS: Lisinopril 20 MG Tablet PO SCH (09:36)
[2018-02-05] MEDS: Senna/Docusate Sodium 8.6/50 MG Tablet PO SCH (09:37)
--- NOTE | 2018-02-05 09:38 | US ---
EXAM DATE: 02/05/2018 9:34 AM EDT AGE/SEX: 68 years / Female INDICATIONS: Abdominal pain. CLINICAL DATA: This is the patient's initial encounter. Patient reports that signs and symptoms have been present for 1 day and indicates a pain score of 1/10. MEDICAL/SURGICAL HISTORY: Dementia. Carcinoma, breast. Arthritis. Hypertension. Congestive h eart failure. Chronic obstructive pulmonary disease. TIA. . Mastectomy, bilateral. COMPARISON: [facility] [place]/O CONTRAST, 10/16/2017. . MEASUREMENTS: Liver:__ 12.9 cm. Common Bile Duct:__ 3mm. Right Kidney:__ 8.8 x 5.3 x 5.6 cm. FINDINGS: Liver: Liver is small and echogenic. Portal Vein: Portal vein is patent with very minimal flow. Common Duct: No intraluminal mass or stone visualized. Gallbladder: Demonstrates no wall thickening or pericholecystic fluid. No stones visualized. Pancreas: The visualized portions are within normal limits Right Kidney: Normal echotexture and cortical thickness. No mass or hydronephrosis. Other: Trace right pleural effusion. CONCLUSION: 1. Small echogenic liver 2. Trace right pleural effusion 3. Sluggish portal vein flow. Electronically signed by: Sidney Gooden MD 02/05/2018 9:37 AM EDT
--- NOTE | 2018-02-05 16:14 | P.DS ---
Date of admission: 01/27/18 11:49 Primary care physician: UNKNOWN Attending physician on discharge: Zeus Aleman Anticipated date of discharge: 02/05/18 Brief History from admission: Patient is a 67-year-old female with past medical history of breast cancer, hypertension, arthritis, COPD, CHF, dementia, [facility] resident, who presented to [facility] ED with respiratory distress. Per EMS, the patient had initial O2 saturation in the 70s and, on arrival to the ED, she was in extremis and was subsequently intubated and placed on full mechanical ventilation. She also had a fever with a temperature of 101.1. Her labs showed WBC of 11.6. Post-intubation ABG showed acute hypercapnic respiratory acidosis with a pH of 7.12, CO2 57, PaO2 243, bicarbonate of 18, and saturation of 97%. Repeat ABG was performed at 10:52 which showed an improvement in her respiratory acidosis with a pH of 7.35, CO2 35, PaO2 of 80 on PRVC mode, rate of 18, tidal volume 500, PEEP of 8 and FiO2 50%. Her laboratory data was significant for mild acute kidney injury with creatinine level of 1.83 and lactic acidemia with a lactic acid level of 4.8. Also, her urinalysis was positive for nitrite, protein and 5 WBCs. Chest x-ray post- intubation showed a diffuse interstitial prominence. When seen, the patient was on Diprivan infusion for sedation. She is scheduled to undergo CT scan of the chest without contrast. In the ED, she was given Zosyn and about to receive vancomycin. Patient update on day of discharge: Follow patient with acute hypercapnic hypoxemic respiratory failure. Patient seen and examined. Patient denies any acute medical complaints. She denies any headache or vision changes. She denies any numbness, tingling or weakness. She denies any chest pain or shortness of breath. She denies any nausea, vomiting or abdominal pain. Discussed with nursing staff, no acute events noted overnight. DS: Diagnosis - Discharge Diagnosis (1) Sepsis Status: Acute (2) Chronic obstructive pulmonary disease with (acute) exacerbation Status: Acute (3) Pneumonia Status: Acute (4) Acute respiratory failure with hypoxia Status: Acute (5) Transaminitis Status: Acute (6) Labile hypertension Status: Acute (7) Chest pain Status: Acute (8) UTI (urinary tract infection) Status: Acute DS: Medications - Discharge Medications Prescriptions: albuterol sulfate [Proventil HFA] 2 puff INHALATION Q6H PRN #1 g PRN Reason: sob amoxicillin-pot clavulanate [Augmentin] 1 tab PO Q12H 5 Days #10 tab clonazepam [Klonopin] 1 mg PO TID #6 tab prednisone 5 mg PO DIRECTED 10 Days #10 tab DS: Summary Hospital Course: Patient with acute hypercapnic hypoxemic respiratory failure and chronic obstructive pulmonary disease exacerbation who was intubated and placed on full mechanical ventilation. She was started on IV Zosyn and vancomycin for pneumonia related sepsis. She was also started on IV Solu-Medrol. Patient was extubated. Strep pneumoniae and Legionella urinary antigen were obtained and were negative. She was started on bronchodilator therapy. She developed chest pain with slightly elevated troponin. Her EKG showed new T-wave inversions. Patient was seen in consultation by cardiology. She was not deemed a good candidate for cardiac catheterization underwent nuclear perfusion scan which did not show any evidence of ischemia. Cardiology recommended medical management and added on Imdur. Patient was seen in consultation by psychiatry for visual hallucinations and was placed under Tena act. Psychiatry recommended inpatient psychiatric evaluation the plan was to discharge patient to med psych. Patient did develop elevated liver function tests that were thought to possibly drug-induced. Patient's Seroquel was placed on hold and she completed her treatment with IV Zosyn. Liver ultrasound was obtained that showed a small echogenic liver. Patient had no complaints of nausea vomiting or abdominal pain. Possible shock liver secondary to sepsis. Patient improved clinically. She was discharged to med/psych. - Time Spent with Patient Total time spent providing and/or coordinating discharge services: Greater than 30 minutes Exam Vital signs: Vital Signs 02/04/18 16:00 02/04/18 20:00 02/05/18 00:00 Temperature 97.4 F L 97.4 F L 98.3 F Pulse Rate 77 78 78 Respiratory Rate 18 16 16 Blood Pressure 161/84 H 162/86 H 173/93 H Pulse Oximetry 100 100 99 02/05/18 04:00 02/05/18 08:00 Temperature 97.2 F L 97.3 F L Pulse Rate 76 77 Respiratory Rate 16 18 Blood Pressure 183/101 H 157/101 H Pulse Oximetry 100 100 Intake & Output 02/04/18 02/05/18 02/05/18 18:59 06:59 18:59 Intake Total 500 / 500 Output Total 200 / 200 Balance -200 / -200 500 / 500 Weight 70.9 kg Intake: IV 500 / 500 NS Inj 500 ML @ 70 mls/hr IV. 500 / 500 CONT .Q7H9M [facility] Rx#:[id number] Output: Urine 200 / 200 Other: # Voids 1 Date of Last Bowel Movement 02/02/18 02/02/18 02/02/18 Narrative: GENERAL: Well-developed well-nourished female patient, no acute distress. Awake and alert. Oriented 1-2. SKIN: Warm and dry. +scattered ecchymosis bilateral UEs. HEAD: Atraumatic. Normocephalic. EYES: Pupils equal and round. No scleral icterus. No injection or drainage. ENT: No nasal bleeding or discharge. Mucous membranes pink and moist. NECK: Trachea midline. CARDIOVASCULAR: Regular rate and rhythm. RESPIRATORY: No accessory muscle use. Clear to auscultation. Breath sounds equal bilaterally. GASTROINTESTINAL: Abdomen soft, non-tender, nondistended. +BS. MUSCULOSKELETAL: Extremities without clubbing, cyanosis, or edema. No obvious deformities. NEUROLOGICAL: Awake and alert. Oriented x 1-2. No obvious cranial nerve deficits. Motor grossly within normal limits. Able to move all extremities Normal speech. PSYCHIATRIC: Calm and cooperative; insight and judgment poor. Results Procedures completed during hospitalization: None Labs on day of discharge: Labs from last 24 hours 02/05/18 02/05/18 02/05/18 11:31 11:17 07:49 Sodium Potassium Chloride Carbon Dioxide Anion Gap BUN Creatinine Estimated GFR POC Glucose 170 H 148 H Random Glucose Hemoglobin A1c Pending Calcium Total Bilirubin AST ALT Alkaline Phosphatase Total Protein Albumin Lipase Hepatitis A IgM Ab Hep Bs Antigen Hep B Core IgM Ab Hep C IgG Ab 02/05/18 02/05/18 02/04/18 07:47 07:47 21:40 Sodium 143 Potassium 3.7 Chloride 112 H Carbon Dioxide 18.2 L Anion Gap 13 BUN 37 H Creatinine 1.35 H Estimated GFR 39 L POC Glucose 173 H Random Glucose 154 H Hemoglobin A1c Calcium 8.3 L Total Bilirubin 1.5 H AST 120 H ALT 302 H Alkaline Phosphatase 204 H Total Protein 6.2 L Albumin 3.2 L Lipase 77 Hepatitis A IgM Ab Hep Bs Antigen Hep B Core IgM Ab Hep C IgG Ab 02/04/18 02/04/18 02/04/18 20:10 17:36 14:40 Sodium 146 H Potassium 3.9 Chloride 113 H Carbon Dioxide 18.3 L Anion Gap 15 BUN 42 H Creatinine 1.46 H Estimated GFR 35 L POC Glucose 186 H Random Glucose 152 H Hemoglobin A1c Calcium 8.3 L Total Bilirubin 1.4 H AST 135 H ALT 336 H Alkaline Phosphatase 107 Total Protein 6.2 L Albumin 3.2 L Lipase Hepatitis A IgM Ab Nonreactive Hep Bs Antigen Nonreactive Hep B Core IgM Ab Nonreactive Hep C IgG Ab Nonreactive - Impressions ITS Impressions Chest X-Ray 01/27/18 09:24 Endotracheal tube is noted and the tip terminates 1 cm above the dorie. There is hazy interstitial prominence noted diffusely. Left breast calcifications are again seen. Enteric tube is present and the side-port projects just beyond the esophagogastric junction. CONCLUSION: Endotracheal tube as above. Chest CT 01/27/18 11:49 CONCLUSION: 1. Bilateral pleural effusions and patchy airspace disease. Myocardial Perfusion Scan Nuc Med 02/02/18 00:00 CONCLUSION: 1. No evidence of fixed or reversible perfusion defect. Liver Ultrasound 02/05/18 00:00 CONCLUSION: 1. Small echogenic liver 2. Trace right pleural effusion 3. Sluggish portal vein flow. Discharge Plan - Discharge Disposition Patient Disposition: 63 Disc To [facility] Facility - Discharge Condition Condition: Stable - Discharge Order Discharge Orders: Discharge Order (Routine); Ordered 02/05/18 Ordered By: Emily Araujo - Discharge Details Discharge Comment: Discharge pending improvement in blood pressure, lab results and med/psych availability - Physicians Team Primary Care Provider: UNKNOWN, Attending Provider: Zeus Aleman Other Providers: Javier Rock MD ; Enmanuel Rodriguez MD ; Dony Malik MD
[2018-02-05 16:23] LABS: Hemoglobin A1c 5.9 % (4.3-6.0)
== END 2018-02-05 12:43 ==
LOC: NEPE 09:18 → NEDA 11:49 → HIMC 13:10 → N05 01-29 15:43
PROVIDERS: ADMIT Family Medicine; ATTEND Family Medicine

== ENCOUNTER 2018-02-05 12:49 | Inpatient (IN) ==
[2018-02-05] MEDS ORDERED: Bisacodyl 10 MG Supp RECTAL PRN (14:50)
[2018-02-05] MEDS ORDERED: Aluminum/Magnesium/Simethacone Susp 30 ML UDC PO PRN (14:50)
[2018-02-05] MEDS: Propranolol 10 MG Tablet PO SCH (18:24)
[2018-02-05] MEDS: Pantoprazole Sodium 20 MG DR Tablet PO SCH (18:24)
[2018-02-05] MEDS: Senna/Docusate Sodium 8.6/50 MG Tablet PO SCH (20:35)
[2018-02-05] MEDS ORDERED: Melatonin 5 MG Tablet PO PRN (21:00)
[2018-02-06] MEDS: Isosorbide Mononitrate 60 MG ER 24HR Tablet (Imdur) PO SCH (06:46)
[2018-02-06 07:44] LABS: Calcium 8.4 mg/dL (8.5-10.1); Carbon Dioxide 17.5 meq/L (21.0-32.0); Potassium 3.3 meq/L (3.5-5.1)
[2018-02-06 07:49] LABS: Chol/HDL Ratio 9.54 Ratio; HDL Cholesterol 31.1 mg/dL (40.0-60.0)
[2018-02-06] MEDS: Lisinopril 20 MG Tablet PO SCH (08:09)
[2018-02-06] MEDS: Senna/Docusate Sodium 8.6/50 MG Tablet PO SCH ×2 (08:09→20:54)
[2018-02-06] MEDS: Propranolol 10 MG Tablet PO SCH (08:10)
[2018-02-06] MEDS: Pantoprazole Sodium 20 MG DR Tablet PO SCH (08:11)
--- NOTE | 2018-02-06 14:28 | P.HPPSY ---
Provisional Diagnosis Admission Date: February 05, 2018 12:49 [place].: Brief psychotic episode Delirium Competence Certification of Person's Competence To Provide Express and Informed Consent I have personally examined Afshan Garcia, a person being served at [facility] on, February 06, 2018 1424. Express and informed consent means consent voluntarily given in writing, by a competent person, after sufficient explanation and disclosure of the subject matter involved to enable the person to make a knowing and willful decision without any element of force, fraud, deceit, duress, or other form of constraint or coercion. This person is 18 years of age or older, is not now known to be incompetent to consent to treatment with a guardian advocate, and does not have a health care surrogate or proxy currently making medical treatment decisions. I have found this person to be one of the following: [] Competent to provide express and informed consent, as defined above, for voluntary admission to this facility and is competent to provide express and informed consent for treatment. He/she has the consistent capacity to make well reasoned, willful, and knowing decisions concerning his or her medical or mental health treatment. The person fully and consistently understands the purpose of the admission for examination/placement and is fully capable of personally exercising all rights assured under [place] [] Incompetent to provide express and informed consent to voluntary admission, and this is incompetent to provide express and informed consent to treatment. The person must be transferred to involuntary status and a petition for a guardian advocate filed with the Circuit Court. zxxxx] Refusing to provide express and informed consent to voluntary admission but is competent to provide express and informed consent for treatment. The person must be discharged or transferred to involuntary status. Form shall be completed within 24 hours of a person's arrival at the receiving facility and filed in the clinical record of each person: 1. Admitted on a voluntary basis 2. Permitted to provide express and informed consent to his/her own treatment 3. Allowed to transfer from involuntary to voluntary status 4. Prior to permitting a person to consent to his or her own treatment after having been previously found incompetent to consent to treatment. History of Present Illness Capacity: Lacks capacity (Patient lacks capacity to sign for admission patient has capacity to sign for medications) History of Present Illness: Patient is a 68-year-old white female was initially admitted to the medical service January 27, 2018 under she was admitted in acute respiratory distress with O2 saturations in the 70s was intubated placed on full mechanical ventilation she was admitted with COPD exacerbation and sepsis due to pneumonia acute kidney injury and UTI patient was consulted by psychiatry on 11/[address] Henry at that time 12 medically she was clear she was also complaining of visual hallucinations stating that she was seeing kids running in and out of her room this patient was Tena acted medically cleared and transferred to [facility]. At the present time patient laying quietly in bed she is on continuous nasal oxygen somewhat short of breath laying quietly. She is calm cooperative alert fairly well oriented though she stated the year was 1917 but she knew it was January she knew she was in [place]. She knew she had pneumonia and was intubated. She denies suicidality or homicidality denies voices or visions at this time she denies any prior psychiatric contact hospitalization psychotropic medication. She denies any alcohol or drug use. She denies any family history of psychiatric issues she has the history of COPD CHF hypertension arthritis and breast cancer. She was born and raised in [place] she now is staying in the [facility] she is and has 1 daughter Social Security appears to been no other significant medical history in the family. At this time patient meets criteria for further care under the Tena act the Tena act as written by Dr. Henry dated 2017 at 1300 hrs. that was stating. Patient is paranoid with anxiety distress. We will also have hospitalist consult will us to the patient's significant pulmonary issues that are persisting. We will refrain from any antipsychotics at this time since the patient appears to be showing some recovery from her psychosis Paxil has been ordered we will continue that antidepressant - Inpatient Certification I certify that the inpatient services were ordered in accordance with Medicare regulations governing the order. This includes certification that hospital inpatient services are reasonable and necessary and in the case of services not specified as inpatient-only under 42 CFR 419.22(n), that they are appropriately provided as inpatient services in accordance to with the 2-midnight benchmark under 43 CFR 412.3(e) I certify that inpatient psychiatric hospital services are medically necessary. Evaluation and treatment and/or diagnostic testing are expected to improve the patient's condition. The patient needs on a daily basis, active treatment furnished directly by or requiring the supervision of inpatient psychiatric facility personnel. Estimated Total Length of Stay (Days): 7 Plans for Post Hospital Care: Home Review of Systems unobtainable due to mental condition PMFSH - History History Provided By: Patient - Medical History Medical History: Medical History (Last Reviewed 01/31/18 @ 09:12 by Francisco Avilez) Arthritis Breast CA CHF (congestive heart failure) COPD (chronic obstructive pulmonary disease) Cerebral atherosclerosis Dementia Dyspnea FH: mastectomy HTN (hypertension) TIA (transient ischemic attack) - Social History I have reviewed the patient's Social History: Yes - Tobacco History Second Hand Smoke Exposure: Yes Tobacco Use In Past 30 Days: Yes Smoking Status: Current every day smoker Tobacco Type: Cigarettes - Alcohol History How Often Do You Have a Drink Containing Alcohol: Monthly or less - Substance Use History Substance History: No History of Abuse - Immunization History Tetanus Immunization: Unsure Hx Influenza Vaccine This Season: Unable to Assess Quality Measures - Psychiatric History Psychological trauma history: Patient denies Violence risk to others in the last 6 months: Low Violence risk to self in the last 6 months: Low - Substance Abuse History Drug or alcohol use in the past 12 months: Patient denies - Patient Strengths Patient's strengths (minimum of 2): Patient verbal able access healthcare Medications and Allergies Active Medications: Active Medications Al Hydrox/Mg Hydrox/Simethicone (Mag-Al Plus Susp Liq) 30 ml PO Q6H PRN PRN Reason: DYSPEPSIA Al Hydroxide/Mg Hydroxide (Milk Of Magnesia Liq) 30 ml PO Q12H PRN PRN Reason: Mild Constipation Albuterol (Duoneb Neb (Prn)) 1 ampul NEB Q2HR NEB PRN PRN Reason: Dyspnea Bisacodyl (Dulcolax Supp) 10 mg RECTAL DAILY PRN PRN Reason: SEVERE CONSITIPATION Clopidogrel Bisulfate (Plavix) 75 mg PO DAILY [facility] Last Admin: 02/06/18 08:10 Dose: 75 mg Isosorbide Mononitrate (Imdur) 60 mg PO DAILY@0700 [facility] Last Admin: 02/06/18 06:46 Dose: 60 mg Lactulose (Lactulose Liq) 30 ml PO DAILY PRN PRN Reason: SEVERE CONSITIPATION Lisinopril (Prinivil) 20 mg PO DAILY [facility] Last Admin: 02/06/18 08:09 Dose: 20 mg Melatonin (Melatonin) 5 mg PO HS PRN PRN Reason: INSOMNIA Miscellaneous (Pill Splitter) 1 each OTHER UNSCH PRN PRN Reason: SEE LABEL COMMENTS Pantoprazole Sodium (Protonix) 20 mg PO DAILY [facility] Last Admin: 02/06/18 08:11 Dose: 20 mg Paroxetine HCl (Paxil) 30 mg PO DAILY [facility] Last Admin: 02/06/18 08:10 Dose: 30 mg Propranolol HCl (Inderal) 10 mg PO DAILY [facility] Last Admin: 02/06/18 08:10 Dose: 10 mg Senna/Docusate Sodium (Rola-Colace) 1 tab PO BID [facility] Last Admin: 02/06/18 08:09 Dose: 1 tab Sennosides (Senokot) 17.2 mg PO Q12H PRN PRN Reason: Moderate Constipation Allergies Allergy/AdvReac Type Severity Reaction Status Date / Time aripiprazole Allergy Severe Chest Pain Unverified 10/16/17 19:27 lurasidone Allergy Unknown UNKNOWN Unverified 10/16/17 19:27 Home Medications Medication Instructions Recorded Confirmed Type cholestyramine (with sugar) 4 g PO BID 01/27/18 01/27/18 History clopidogrel 75 mg PO DAILY 01/27/18 01/27/18 History lisinopril 20 mg PO DAILY 01/27/18 01/27/18 History melatonin 3 mg PO HS PRN 01/27/18 01/27/18 History omeprazole 20 mg PO DAILY 01/27/18 01/27/18 History paroxetine HCl 30 mg PO DAILY 01/27/18 01/27/18 History propranolol 10 mg PO DAILY 01/27/18 01/27/18 History Results - Labs CBC & Chem 7: 02/06/18 06:53 Labs: Laboratory Results - last 24 hr 02/06/18 06:53 Sodium 144 Potassium 3.3 L Chloride 112 H Carbon Dioxide 17.5 L Anion Gap 15 BUN 34 H Creatinine 1.18 H Estimated GFR 45 L Random Glucose 132 H Calcium 8.4 L Triglycerides 289 H Cholesterol 297 H LDL Cholesterol, Calc 208 H HDL Cholesterol 31.1 L Cholesterol/HDL Ratio 9.54 Exam Vital signs: Vital Signs 02/05/18 16:00 02/05/18 18:21 02/06/18 06:00 Temperature 97.3 F L 97.3 F L 97.5 F L Pulse Rate 67 77 77 Respiratory Rate 17 18 15 Blood Pressure 162/70 H 156/75 H 165/78 H Pulse Oximetry 92 L 97 94 L Narrative: Patient seen laying in her bed feels Mental Status Examination Appearance: Appropriate Consciousness: Alert Orientation: Person, Place, Date/Time (Somewhat confusing) Motor Activity: Other (Patient laying in bed) Speech: Hesitant, Slow Language: Adequate Fund of Knowledge: Adequate Attention and Concentration: Adequate (Fair) Memory: Unremarkable (Fair) Mood: Other (Euthymic to somewhat restricted dysphoric) Affect: Other (Decreased range and intensity) Thought Process & Associations: Intact Thought Content: Appropriate Hallucination Type: None (Denies at this time) Delusion Type: None Suicidal Ideation: No Suicidal Plan: No Suicidal Intention: No Homicidal Ideation: No Homicidal Plan: No Homicidal Intention: No Insight: Poor Judgment: Poor Assessment and Plan - Assessment (1) Brief psychotic disorder Code(s): F23 - Brief psychotic disorder Status: Acute (2) Delirium Code(s): R41.0 - Disorientation, unspecified Status: Acute - Plan Plan: Estimated LOS: [5-7] days At this time it appears patient's psychosis is somewhat resolved she denies voices or visions. Though she is still somewhat vigilant. This time she does make criteria for further psychiatric assessment of the Tena act thus I will do first opinion request second opinion will have hospitalist consult with us placement may become somewhat problematic depending on the resolution of her complex significant medical issues Justification for Continued Inpatient Stay: At this time patient would decompensate a place to a lower level of care Discharge Planning: To be determined Request Healthcare Surrogate/Guardian Advocate?: No
[2018-02-06] MEDS ORDERED: Acetaminophen 325 MG Tablet PO PRN (14:35)
[2018-02-06 16:51] LABS: Hemoglobin A1c 5.9 % (4.3-6.0)
--- NOTE | 2018-02-06 18:00 | P.CONIM ---
History of Present Illness Service: [facility] Primary Care Provider: UNKNOWN History of Present Illness: 68 Y/O female admitted to the psychiatric unit for brief psychotic episode. Hospitalist service consulted for medical management. Patient is seen in her room. She does not know why she is in the unit. She is oxygen dependent. She has no complaints currently. Patient was admitted from the medical floor where she was treated for COPD exacerbation. She remains very weak. Review of Systems All other systems reviewed negative except as stated in [facility] - History History Provided By: Patient - Medical History Medical History: Medical History (Last Reviewed 02/07/18 @ 23:40 by Zeus Aleman MD) Arthritis Breast CA CHF (congestive heart failure) COPD (chronic obstructive pulmonary disease) Cerebral atherosclerosis Dementia Dyspnea FH: mastectomy HTN (hypertension) TIA (transient ischemic attack) - Social History I have reviewed the patient's Social History: Yes - Tobacco History Second Hand Smoke Exposure: Yes Tobacco Use In Past 30 Days: Yes Smoking Status: Current every day smoker Tobacco Type: Cigarettes - Alcohol History How Often Do You Have a Drink Containing Alcohol: Monthly or less - Substance Use History Substance History: No History of Abuse - Immunization History Tetanus Immunization: Unsure Hx Influenza Vaccine This Season: Unable to Assess Medications and Allergies Active Medications: Active Medications Acetaminophen (Tylenol) 650 mg PO Q4H PRN PRN Reason: Pain 1-5 or Temp >101F Al Hydrox/Mg Hydrox/Simethicone (Mag-Al Plus Susp Liq) 30 ml PO Q6H PRN PRN Reason: DYSPEPSIA Al Hydroxide/Mg Hydroxide (Milk Of Magnesia Liq) 30 ml PO Q12H PRN PRN Reason: Mild Constipation Albuterol (Duoneb Neb (Prn)) 1 ampul NEB Q2HR NEB PRN PRN Reason: Dyspnea Bisacodyl (Dulcolax Supp) 10 mg RECTAL DAILY PRN PRN Reason: SEVERE CONSITIPATION Clopidogrel Bisulfate (Plavix) 75 mg PO DAILY [facility] Last Admin: 02/06/18 08:10 Dose: 75 mg Hydroxyzine HCl (Atarax) 50 mg PO Q6H PRN PRN Reason: ANXIETY Isosorbide Mononitrate (Imdur) 60 mg PO DAILY@0700 [facility] Last Admin: 02/06/18 06:46 Dose: 60 mg Lactulose (Lactulose Liq) 30 ml PO DAILY PRN PRN Reason: SEVERE CONSITIPATION Lisinopril (Prinivil) 20 mg PO DAILY [facility] Last Admin: 02/06/18 08:09 Dose: 20 mg Melatonin (Melatonin) 5 mg PO HS PRN PRN Reason: INSOMNIA Miscellaneous (Pill Splitter) 1 each OTHER UNSCH PRN PRN Reason: SEE LABEL COMMENTS Pantoprazole Sodium (Protonix) 20 mg PO DAILY [facility] Last Admin: 02/06/18 08:11 Dose: 20 mg Paroxetine HCl (Paxil) 30 mg PO DAILY [facility] Last Admin: 02/06/18 08:10 Dose: 30 mg Propranolol HCl (Inderal) 10 mg PO DAILY [facility] Last Admin: 02/06/18 08:10 Dose: 10 mg Senna/Docusate Sodium (Rola-Colace) 1 tab PO BID [facility] Last Admin: 02/06/18 08:09 Dose: 1 tab Sennosides (Senokot) 17.2 mg PO Q12H PRN PRN Reason: Moderate Constipation Allergies Allergy/AdvReac Type Severity Reaction Status Date / Time aripiprazole Allergy Severe Chest Pain Unverified 10/16/17 19:27 lurasidone Allergy Unknown UNKNOWN Unverified 10/16/17 19:27 Home Medications Medication Instructions Recorded Confirmed Type cholestyramine (with sugar) 4 g PO BID 01/27/18 01/27/18 History clopidogrel 75 mg PO DAILY 01/27/18 01/27/18 History lisinopril 20 mg PO DAILY 01/27/18 01/27/18 History melatonin 3 mg PO HS PRN 01/27/18 01/27/18 History omeprazole 20 mg PO DAILY 01/27/18 01/27/18 History paroxetine HCl 30 mg PO DAILY 01/27/18 01/27/18 History propranolol 10 mg PO DAILY 01/27/18 01/27/18 History Exam Vital signs: Vital Signs 02/05/18 18:21 02/06/18 06:00 Temperature 97.3 F L 97.5 F L Pulse Rate 77 77 Respiratory Rate 18 15 Blood Pressure 156/75 H 165/78 H Pulse Oximetry 97 94 L Narrative: GENERAL: This is a well-nourished, well-developed patient, in no apparent distress. CARDIOVASCULAR: Regular rate and rhythm without murmurs, gallops, or rubs. RESPIRATORY: Diminished breath sounds bilaterally otherwise Clear to auscultation. GASTROINTESTINAL: Abdomen soft, non-tender, nondistended. Normal active bowel sounds MUSCULOSKELETAL: Extremities without clubbing, cyanosis, or edema. NEURO: Alert & Oriented x4 to person, place, time, situation. Moves all ext x4 Results - Labs CBC & Chem 7: 02/06/18 06:53 Labs: Laboratory Results - last 24 hr 02/06/18 02/06/18 06:53 06:53 Sodium 144 Potassium 3.3 L Chloride 112 H Carbon Dioxide 17.5 L Anion Gap 15 BUN 34 H Creatinine 1.18 H Estimated GFR 45 L Random Glucose 132 H Hemoglobin A1c 5.9 Calcium 8.4 L Triglycerides 289 H Cholesterol 297 H LDL Cholesterol, Calc 208 H HDL Cholesterol 31.1 L Cholesterol/HDL Ratio 9.54 Assessment and Plan - Plan 67-year-old female with past medical history of breast cancer, hypertension, arthritis, COPD, CHF, dementia, alf resident, who presented to [facility] ED with respiratory distress. Subsequently intubated and placed on mechanical ventilation. Found to have urinary tract infection, acute hypercapnic respiratory failure, COPD exacerbation, pneumonia. She was given IV antibiotics, IV steroids. Her hospitalization was also complicated what slightly elevated troponin, T-wave inversion. Patient was followed by group work program aide and deemed not a good candidate for cardiac cath patient underwent nuclear perfusion did not show any evidence of ischemia. Recommending medical management and Imdur. Patient had visual hallucinations was placed under Tena act. She is now admitted to inpatient psychiatry and for further evaluation. Consulted for assistance with medical management. Pneumonia Hypoxemic respiratory failure COPD -Continue O2 nasal cannula, keep O2 sat greater than 90% -Duo nebs 3 times daily, as needed -Mucinex, Symbicort -Augmentin 5 days, prednisone 20 mg twice daily 5 days -Monitor respiratory status Generalized weakness -Once cleared from a psychiatric standpoint, she may benefit from rehab. -PT/OT eval and treat HTN CAD -Cardiology workup was done in the inpatient for new T-wave inversion. Nuclear testing showed no evidence of ischemia. -Continue home medications Hyperlipidemia Transaminitis -Liver ultrasound was obtained that showed a small echogenic liver -Elevated LFTs from previous, will recheck -Hepatitis panel negative -Unable to start statin medication CKD stage III -Creatinine at baseline -Monitor renal indicis. Avoid nephrotoxins.
[2018-02-07] MEDS: Isosorbide Mononitrate 60 MG ER 24HR Tablet (Imdur) PO SCH (06:35)
[2018-02-07] MEDS: Pantoprazole Sodium 20 MG DR Tablet PO SCH (09:36)
[2018-02-07] MEDS: Propranolol 10 MG Tablet PO SCH ×2 (09:37→22:10)
[2018-02-07] MEDS: Senna/Docusate Sodium 8.6/50 MG Tablet PO SCH ×2 (09:37→22:32)
[2018-02-07] MEDS: Lisinopril 20 MG Tablet PO SCH (09:37)
--- NOTE | 2018-02-07 11:56 | P.PNPSY ---
Subjective Remarks: Patient seen in her room laying in bed. Nurse Kaleigh present throughout session. Chart reviewed. Patient compliant medication. Patient continues with nasal oxygen. She is calm cooperative if somewhat sad. She denies voices or visions. Denies suicidality or homicidality. States she lives by herself. However discussing patient with staff it appears she still is quite weak and unable to ambulate to the commode she is using bed pants at the present time. We need to coordinate with the medicine service this patient may need referral to a rehab-type facility after discharge from here Review of Systems All other systems reviewed negative except as stated in HPI Mental Status Examination Appearance: Appropriate Consciousness: Alert Orientation: Person, Place, Date/Time (Somewhat confusing) Motor Activity: Other (Patient laying in bed) Speech: Hesitant, Slow Language: Adequate Fund of Knowledge: Adequate Attention and Concentration: Adequate (Fair) Memory: Unremarkable (Fair) Mood: Other (Euthymic to somewhat restricted dysphoric) Affect: Other (Decreased range and intensity) Thought Process & Associations: Intact Thought Content: Appropriate Hallucination Type: None (Denies at this time) Delusion Type: None Suicidal Ideation: No Suicidal Plan: No Suicidal Intention: No Homicidal Ideation: No Homicidal Plan: No Homicidal Intention: No Insight: Poor Judgment: Poor Assessment and Plan - Assessment (1) Brief psychotic disorder Code(s): F23 - Brief psychotic disorder Status: Acute (2) Delirium Code(s): R41.0 - Disorientation, unspecified Status: Acute - Plan Plan: Patient continues depressed and sad that appears her psychosis is slowly resolving. She is compliant medication. We need to coordinate the medical service for finding an appropriate placement Justification for Continued Inpatient Stay: At this time patient would decompensate if placed in a lower level of care Discharge Planning: To be determined Request Healthcare Surrogate/Guardian Advocate?: No
--- NOTE | 2018-02-07 14:07 | P.PN ---
Subjective Interval history: Follow-up visit COPD with exacerbation, history of pneumonia, UTI, hypoxemic respiratory failure. Patient seen and examined today O2 nasal cannula at bedside. Patient states that she is okay but she is very weak and unable to walk. Patient also does not know why she is in psychiatry unit. States that she came into the hospital with shortness of breath. Psychosis, delirium probably related to sepsis, pneumonia, urinary tract infection. Denies worsening shortness of breath or dyspnea. Denies chest pain, palpitations, headaches, fevers, chills, nausea, vomiting, diarrhea. Denies dysuria. Physical Exam Vital signs: Vital Signs 02/06/18 18:22 02/06/18 21:00 02/06/18 23:16 Temperature 98.4 F Pulse Rate 87 Respiratory Rate 20 Blood Pressure 123/67 Pulse Oximetry 97 99 99 02/07/18 05:04 Temperature 98.1 F Pulse Rate 68 Respiratory Rate 16 Blood Pressure 156/84 H Pulse Oximetry 96 Intake & Output 02/06/18 02/07/18 02/07/18 18:59 06:59 18:59 Other: # Voids 1 # Bowel Movements 1 Narrative: GENERAL: This is a well-nourished, well-developed patient, in no apparent distress. SKIN: Warm and dry. HEENT: Normocephalic. Pupils equal round and reactive. Nose without bleeding. Airway patent. NECK: Trachea midline. CARDIOVASCULAR: Regular rate and rhythm without murmurs, gallops, or rubs. RESPIRATORY: Diminished bases. Minimal wheeze. O2 nasal cannula in place. GASTROINTESTINAL: Abdomen soft, non-tender, nondistended. Bowel Sounds normoactive x4. MUSCULOSKELETAL: Extremities without clubbing, cyanosis, or edema. NEUROLOGICAL: Awake and alert. No focal neuro deficit. Moves all extremities. Normal speech. Results - Labs CBC & Chem 7: 02/06/18 06:53 Laboratory Results - last 24 hr 02/06/18 06:53 Hemoglobin A1c 5.9 Assessment and Plan - Plan 67-year-old female with past medical history of breast cancer, hypertension, arthritis, COPD, CHF, dementia, snf resident, who presented to [facility] ED with respiratory distress. Subsequently intubated and placed on mechanical ventilation. Found to have urinary tract infection, acute hypercapnic respiratory failure, COPD exacerbation, pneumonia. She was given IV antibiotics, IV steroids. Her hospitalization was also complicated what slightly elevated troponin, T-wave inversion. Patient was followed by billing control clerk and deemed not a good candidate for cardiac cath patient underwent nuclear perfusion did not show any evidence of ischemia. Recommending medical management and Imdur. Patient had visual hallucinations was placed under Tena act. She is now admitted to inpatient psychiatry and for further evaluation. Consulted for assistance with medical management. Pneumonia Hypoxemic respiratory failure COPD -Continue O2 nasal cannula, keep O2 sat greater than 90% -Duo nebs 3 times daily, as needed -Mucinex, Symbicort -Augmentin 5 days, prednisone 20 mg twice daily 5 days -Monitor respiratory status Generalized weakness -Patient may need to be in half-way facility. She was ambulatory prior to being at the hospital. -PT/OT eval and treat HTN CAD -Cardiology workup was done in the inpatient for new T-wave inversion. Nuclear testing showed no evidence of ischemia. -Continue home medications Hyperlipidemia Transaminitis -Liver ultrasound was obtained that showed a small echogenic liver -Elevated LFTs from previous, will recheck -Hepatitis panel negative -Unable to start statin medication CKD stage III -Creatinine 1.18, baseline -Monitor renal indicis. Avoid nephrotoxins. DVT prop heparin Code Status: Full Code Discussed Condition With: Patient, nursing Discharge Planning: DC disposition by primary team. We recommend to DC to SNF for rehab.
--- NOTE | 2018-02-07 14:19 | P.CONPSY ---
Provisional Diagnosis Admission Date: February 05, 2018 12:49 [place] I.: Brief psychotic episode Delirium History of Present Illness Primary Care Provider: UNKNOWN [facility] - History History Provided By: Patient - Medical History Medical History: Medical History (Last Reviewed 01/31/18 @ 09:12 by Francisco Avilez) Arthritis Breast CA CHF (congestive heart failure) COPD (chronic obstructive pulmonary disease) Cerebral atherosclerosis Dementia Dyspnea FH: mastectomy HTN (hypertension) TIA (transient ischemic attack) - Tobacco History Second Hand Smoke Exposure: Yes Tobacco Use In Past 30 Days: Yes Smoking Status: Current every day smoker Tobacco Type: Cigarettes - Alcohol History How Often Do You Have a Drink Containing Alcohol: Monthly or less - Substance Use History Substance History: No History of Abuse - Immunization History Tetanus Immunization: Unsure Hx Influenza Vaccine This Season: Unable to Assess Medications and Allergies Active Medications: Active Medications Acetaminophen (Tylenol) 650 mg PO Q4H PRN PRN Reason: Pain 1-5 or Temp >101F Al Hydrox/Mg Hydrox/Simethicone (Mag-Al Plus Susp Liq) 30 ml PO Q6H PRN PRN Reason: DYSPEPSIA Al Hydroxide/Mg Hydroxide (Milk Of Magnesia Liq) 30 ml PO Q12H PRN PRN Reason: Mild Constipation Albuterol (Duoneb Neb (Prn)) 1 ampul NEB Q2HR NEB PRN PRN Reason: Dyspnea Albuterol (Duoneb Neb (Jeff)) 1 ampul NEB TID NEB [facility] Bisacodyl (Dulcolax Supp) 10 mg RECTAL DAILY PRN PRN Reason: SEVERE CONSITIPATION Budesonide/Formoterol Fumarate (Symbicort 160/4.5 Mcg Inh) 2 puff INH BID [facility] Clopidogrel Bisulfate (Plavix) 75 mg PO DAILY [facility] Last Admin: 02/07/18 09:35 Dose: 75 mg Guaifenesin (Mucinex Er) 600 mg PO BID [facility] Hydroxyzine HCl (Atarax) 50 mg PO Q6H PRN PRN Reason: ANXIETY Isosorbide Mononitrate (Imdur) 60 mg PO DAILY@0700 [facility] Last Admin: 02/07/18 06:35 Dose: 60 mg Lactulose (Lactulose Liq) 30 ml PO DAILY PRN PRN Reason: SEVERE CONSITIPATION Lisinopril (Prinivil) 20 mg PO DAILY [facility] Last Admin: 02/07/18 09:37 Dose: 20 mg Melatonin (Melatonin) 5 mg PO HS PRN PRN Reason: INSOMNIA Miscellaneous (Pill Splitter) 1 each OTHER UNSCH PRN PRN Reason: SEE LABEL COMMENTS Pantoprazole Sodium (Protonix) 20 mg PO DAILY [facility] Last Admin: 02/07/18 09:36 Dose: 20 mg Paroxetine HCl (Paxil) 30 mg PO DAILY [facility] Last Admin: 02/07/18 09:34 Dose: 30 mg Propranolol HCl (Inderal) 10 mg PO BID [facility] Senna/Docusate Sodium (Rola-Colace) 1 tab PO BID [facility] Last Admin: 02/07/18 09:37 Dose: 1 tab Sennosides (Senokot) 17.2 mg PO Q12H PRN PRN Reason: Moderate Constipation Allergies Allergy/AdvReac Type Severity Reaction Status Date / Time aripiprazole Allergy Severe Chest Pain Unverified 10/16/17 19:27 lurasidone Allergy Unknown UNKNOWN Unverified 10/16/17 19:27 Home Medications Medication Instructions Recorded Confirmed Type cholestyramine (with sugar) 4 g PO BID 01/27/18 01/27/18 History clopidogrel 75 mg PO DAILY 01/27/18 01/27/18 History lisinopril 20 mg PO DAILY 01/27/18 01/27/18 History melatonin 3 mg PO HS PRN 01/27/18 01/27/18 History omeprazole 20 mg PO DAILY 01/27/18 01/27/18 History paroxetine HCl 30 mg PO DAILY 01/27/18 01/27/18 History propranolol 10 mg PO DAILY 01/27/18 01/27/18 History Exam Vital signs: Vital Signs 02/06/18 18:22 02/06/18 21:00 02/06/18 23:16 Temperature 98.4 F Pulse Rate 87 Respiratory Rate 20 Blood Pressure 123/67 Pulse Oximetry 97 99 99 02/07/18 05:04 Temperature 98.1 F Pulse Rate 68 Respiratory Rate 16 Blood Pressure 156/84 H Pulse Oximetry 96 Intake & Output 02/06/18 02/07/18 02/07/18 18:59 06:59 18:59 Other: # Voids 1 # Bowel Movements 1 Mental Status Examination Appearance: Appropriate Consciousness: Alert Orientation: Person, Place, Date/Time (Somewhat confusing) Motor Activity: Other (Patient laying in bed) Speech: Hesitant, Slow Language: Adequate Fund of Knowledge: Adequate Attention and Concentration: Adequate (Fair) Memory: Unremarkable (Fair) Mood: Other (Euthymic to somewhat restricted dysphoric) Affect: Other (Decreased range and intensity) Thought Process & Associations: Intact Thought Content: Appropriate Hallucination Type: None (Denies at this time) Delusion Type: None Suicidal Ideation: No Suicidal Plan: No Suicidal Intention: No Homicidal Ideation: No Homicidal Plan: No Homicidal Intention: No Insight: Poor Judgment: Poor Assessment and Plan - Assessment (1) Brief psychotic disorder Code(s): F23 - Brief psychotic disorder Status: Acute (2) Delirium Code(s): R41.0 - Disorientation, unspecified Status: Acute - Plan Request Healthcare Surrogate/Guardian Advocate?: No
[2018-02-07] MEDS: Budesonide-Formoterol 160/4.5 MCG 6 GM Inhaler INH SCH (18:40)
[2018-02-07] MEDS: Amoxicillin/Clavulanate 875/125 MG Tablet PO SCH (18:40)
[2018-02-07] MEDS: Heparin - SQ 10,000 UNITS/ML Vial SQ SCH ×2 (22:31→22:48)
[2018-02-07] MEDS: guaiFENesin 600 MG ER Tablet PO SCH (22:31)
[2018-02-08] MEDS: Budesonide-Formoterol 160/4.5 MCG 6 GM Inhaler INH SCH ×2 (04:30→10:16)
[2018-02-08 05:57] VITALS: BP 168/70; TEMP 98.1; O2SAT 97
[2018-02-08] MEDS: Isosorbide Mononitrate 60 MG ER 24HR Tablet (Imdur) PO SCH (06:25)
[2018-02-08] MEDS: predniSONE 20 MG Tablet PO SCH ×3 (06:25→16:38)
[2018-02-08] MEDS: Amoxicillin/Clavulanate 875/125 MG Tablet PO SCH ×2 (06:25→16:38)
[2018-02-08 08:59] VITALS: RESP 16
[2018-02-08] MEDS: Propranolol 10 MG Tablet PO SCH (10:14)
[2018-02-08] MEDS: Lisinopril 20 MG Tablet PO SCH (10:14)
[2018-02-08] MEDS: Pantoprazole Sodium 20 MG DR Tablet PO SCH (10:15)
[2018-02-08] MEDS: Senna/Docusate Sodium 8.6/50 MG Tablet PO SCH (10:15)
[2018-02-08] MEDS: Heparin - SQ 10,000 UNITS/ML Vial SQ SCH (10:15)
[2018-02-08] MEDS: guaiFENesin 600 MG ER Tablet PO SCH (10:15)
--- NOTE | 2018-02-08 12:01 | P.DSPSY ---
Psychiatry Discharge Summary Inpatient Psychiatric care?: Yes Advance Directives: Unknown Reason for Unknown:: Due to Patient Condition Mental Health Advance Directive: No Health Care Proxy: No - Admission Admission Date: February 05, 2018 12:49 - Admission Diagnosis (1) Brief psychotic disorder Code(s): F23 - Brief psychotic disorder (2) Delirium Code(s): R41.0 - Disorientation, unspecified Brief History: Patient is a 68-year-old white female was initially admitted to the medical service January 27, 2018 under she was admitted in acute respiratory distress with O2 saturations in the 70s was intubated placed on full mechanical ventilation she was admitted with COPD exacerbation and sepsis due to pneumonia acute kidney injury and UTI patient was consulted by psychiatry on 11/[address] Henry at that time 12 medically she was clear she was also complaining of visual hallucinations stating that she was seeing kids running in and out of her room this patient was Tena acted medically cleared and transferred to 2600. At the present time patient laying quietly in bed she is on continuous nasal oxygen somewhat short of breath laying quietly. She is calm cooperative alert fairly well oriented though she stated the year was 1917 but she knew it was January she knew she was in [place]. She knew she had pneumonia and was intubated. She denies suicidality or homicidality denies voices or visions at this time she denies any prior psychiatric contact hospitalization psychotropic medication. She denies any alcohol or drug use. She denies any family history of psychiatric issues she has the history of COPD CHF hypertension arthritis and breast cancer. She was born and raised in [place] she now is staying in the [facility] she is and has 1 daughter Social Security appears to been no other significant medical history in the family. At this time patient meets criteria for further care under the Tena act the Tena act as written by Dr. Henry dated 2017 at 1300 hrs. that was stating. Patient is paranoid with anxiety distress. We will also have hospitalist consult will us to the patient's significant pulmonary issues that are persisting. We will refrain from any antipsychotics at this time since the patient appears to be showing some recovery from her psychosis Paxil has been ordered we will continue that antidepressant Tobacco Use In Past 30 Days: Yes How Often Do You Have a Drink Containing Alcohol: Monthly or less Hospital Course: Patient's hospital course was uneventful, she remained with respiratory issues constant nasal oxygen. However mental status has improved her psychosis has resolved. She denies suicidality homicidality voices or visions. She has been compliant with the medication. At this time she does not meet criteria for admission to the acute psychiatric unit however she does need further extended- care related to her significant pulmonary issues. Patient has been accepted at [facility] or rehab for further care and attention of these chronic medical issues. Thus patient be discharged from psychiatry today follow -up through [facility] Rx 1 month to follow-up services through that facility - Discharge Discharge Date: 02/08/18 - Discharge Diagnosis (1) Dementia associated with other underlying disease without behavioral disturbance Diagnosis: Principal Code(s): F02.80 - Dementia in other diseases classified elsewhere without behavioral disturbance Status: Acute (2) Chronic obstructive pulmonary disease with (acute) exacerbation Diagnosis: Secondary Code(s): J44.1 - Chronic obstructive pulmonary disease with (acute) exacerbation Status: Acute Discharge Disposition: Senior Living Facility - Discharge Instructions Discharge Diet: Diabetic Diet Activities You Can Perform: Regular- No Restrictions - Discharge Time > 30 minutes Mental Status Examination Appearance: Appropriate Consciousness: Alert Orientation: Person, Place, Date/Time (Somewhat confusing) Motor Activity: Other (Patient laying in bed) Speech: Hesitant, Slow Language: Adequate Fund of Knowledge: Adequate Attention and Concentration: Adequate (Fair) Memory: Unremarkable (Fair) Mood: Other (Euthymic to somewhat restricted dysphoric) Affect: Other (Decreased range and intensity) Thought Process & Associations: Intact Thought Content: Appropriate Hallucination Type: None (Denies at this time) Delusion Type: None Suicidal Ideation: No Suicidal Plan: No Suicidal Intention: No Homicidal Ideation: No Homicidal Plan: No Homicidal Intention: No Insight: Poor Judgment: Poor Discharge/Advance Care Plan - Results Vital Signs: Last Vital Signs Temp 98.1 F 02/08/18 05:56 Pulse 71 02/08/18 08:58 Resp 16 02/08/18 08:58 BP 168/70 H 02/08/18 05:56 Pulse Ox 97 02/08/18 05:56 Lab Results: Laboratory Results Hemoglobin A1c 5.9 % (4.3-6.0) 02/06/18 06:53 Triglycerides 289 mg/dL (42-150) H 02/06/18 06:53 Cholesterol 297 mg/dL (120-200) H 02/06/18 06:53 LDL Cholesterol, Calc 208 mg/dL (0-99) H 02/06/18 06:53 HDL Cholesterol 31.1 mg/dL (40.0-60.0) L 02/06/18 06:53 Summary of Procedures: None done Pending Results: None - Medications Number of antipsychotic medications at discharge: 0 - Discharge Care Plan Goals to Promote Your Health: * To prevent worsening of your condition and complications * To maintain your health at the optimal level Directions to Meet Your Goals: Take your medications as prescribed Follow your dietary instruction Follow activity as directed Keep your appointments as scheduled Take your immunizations and boosters as scheduled If your symptoms worsen call your PCP, if no PCP go to Urgent Care Center or Emergency Room For 18/12 questions related to your inpatient stay or results of tests pending at discharge, please contact Dr. Stephen Diaz MD at Smoking is Dangerous to Your Health. Avoid second hand smoking
[2018-02-08 14:32] VITALS: PULSE 68
--- NOTE | 2018-02-08 16:48 | P.PN ---
Subjective Interval history: Follow-up visit COPD with exacerbation, history of pneumonia, UTI, hypoxemic respiratory failure. Patient seen and examined today. States she is doing okay. Denies worsening shortness of breath or dyspnea. Denies chest pain, palpitations, headaches, fevers, chills, nausea, vomiting, diarrhea. Denies dysuria. Physical Exam Vital signs: Vital Signs 02/07/18 18:00 02/07/18 21:36 02/08/18 05:56 Temperature 97.6 F 98.1 F Pulse Rate 68 64 Respiratory Rate 18 17 Blood Pressure 97/56 L 168/70 H Pulse Oximetry 95 96 97 02/08/18 08:58 02/08/18 14:31 Temperature Pulse Rate 71 68 Respiratory Rate 16 16 Blood Pressure Pulse Oximetry Intake & Output 02/07/18 02/08/18 02/08/18 18:59 06:59 18:59 Intake Total 1080 / 1080 Balance 1080 / 1080 Weight 64.2 kg Intake: Oral 1080 / 1080 Other: # Voids 4 Weight On Admission 64.2 kg Narrative: GENERAL: This is a well-nourished, well-developed patient, in no apparent distress. SKIN: Warm and dry. HEENT: Normocephalic. Pupils equal round and reactive. Nose without bleeding. Airway patent. NECK: Trachea midline. CARDIOVASCULAR: Regular rate and rhythm without murmurs, gallops, or rubs. RESPIRATORY: Diminished bases. O2 nasal cannula in place. GASTROINTESTINAL: Abdomen soft, non-tender, nondistended. Bowel Sounds normoactive x4. MUSCULOSKELETAL: Extremities without clubbing, cyanosis, or edema. NEUROLOGICAL: Awake and alert. No focal neuro deficit. Moves all extremities. Normal speech. Results - Labs CBC & Chem 7: 02/06/18 06:53 Assessment and Plan - Plan 67-year-old female with past medical history of breast cancer, hypertension, arthritis, COPD, CHF, dementia, detention resident, who presented to [facility] ED with respiratory distress. Subsequently intubated and placed on mechanical ventilation. Found to have urinary tract infection, acute hypercapnic respiratory failure, COPD exacerbation, pneumonia. She was given IV antibiotics, IV steroids. Her hospitalization was also complicated what slightly elevated troponin, T-wave inversion. Patient was followed by junior buyer and deemed not a good candidate for cardiac cath patient underwent nuclear perfusion did not show any evidence of ischemia. Recommending medical management and Imdur. Patient had visual hallucinations was placed under Tena act. She is now admitted to inpatient psychiatry and for further evaluation. Consulted for assistance with medical management. Pneumonia Hypoxemic respiratory failure COPD -Continue O2 nasal cannula, keep O2 sat greater than 90% -Duo nebs 3 times daily, as needed -Mucinex, Symbicort -Augmentin 5 days, prednisone 20 mg twice daily 5 days -Continue medications upon discharge. Follow-up with PCP. Generalized weakness -Patient may need to be in residential facility. She was ambulatory prior to being at the hospital. -PT/OT eval and treat HTN CAD -Cardiology workup was done in the inpatient for new T-wave inversion. Nuclear testing showed no evidence of ischemia. -Continue home medications Hyperlipidemia Transaminitis -Liver ultrasound was obtained that showed a small echogenic liver -Elevated LFTs from previous, recheck in outpatient setting with PCP -Hepatitis panel negative -Unable to start statin medication CKD stage III -Creatinine 1.18, baseline -Monitor renal indicis. Avoid nephrotoxins. DVT prop heparin Hospitalist clear for discharge Stable from Hospitalist standpoint. We will sign off. Reconsult as needed. Thank you. Code Status: Full Code Discussed Condition With: Patient, nurse Discharge Planning: DC disposition by primary team. We recommend to DC to SNF for rehab.
[2018-02-08] MEDS ORDERED: Propranolol 10 MG Tablet PO SCH (17:00)
== END 2018-02-08 17:22 ==
LOC: H260 12:49
PROVIDERS: ADMIT Psychiatry & Neurology Psychiatry; ATTEND Psychiatry & Neurology Psychiatry